=== PATIENT | male | born 1940 | race Caucasian/White ===

== ENCOUNTER → 2019-06-28 14:18 | Outpatient (BNVA) | payer MEDICARE, OTHER, SELFPAY | PROVIDERS: Family Provider Registered Nurse; PCP Registered Nurse; Visit Provider Urology | DX: N99.89 Other postprocedural complications and disorders of genitourinary system (principal); R97.20 Elevated prostate specific antigen [PSA] | CPT/HCPCS: 81001; 84153 ==

== ENCOUNTER 2019-07-06 10:37 | Outpatient (CLI) | payer MEDICARE, OTHER, SELFPAY ==
--- NOTE | 2019-07-06 11:02 | XRR_ITS ---
PROCEDURE INFORMATION: Exam: XR Chest, 1 View Exam date and time: 07/06/2019 11:04 AM Age: 78 years old Clinical indication: Shortness of breath TECHNIQUE: Imaging protocol: XR of the chest Views: 1 view. COMPARISON: CR Chest 1 [place] [id number] 05/24/2019 11:54 AM FINDINGS: Lungs: Hyperinflation, without acute airspace disease. Pleural space: No pleural effusion. Heart/Mediastinum: Epicardial fat accentuates the cardiac silhouette. Bones/joints: Mild scoliosis and degenerative change. When correlating with the previous study, no significant interval changes are present. XR/XR chest 1V [id number] IMPRESSION: Stable appearance of the chest, not significantly changed from 05/24/2019.
--- NOTE | 2019-07-06 11:04 | USCV_ITS ---
Pantera Henriquez Age: 78 Gender: M : 1940 Exam Date: 07/06/2019 11:15 Ordering Phys: Pantera Vilchis MD (Andy) ([email or web address]) Technologist: Kasey Romo [place] [facility] [place]: BILATERAL LEG PAIN AND SWELLING Risk Factors: Unknown Previous Vascular Surgery: None RIGHT LEFT BP: 112.0 / BP: 116.0/ 0 0 Waveform Velocity (cm/s) Velocity (cm/s) Waveform Triphasic 51.9 Iliac Prox 63.2 Triphasic Triphasic 44.9 Iliac Mid 51.5 Triphasic Biphasic 73.7 Iliac Distal 27.9 Triphasic Triphasic 29.1 [employer]INATOR 37.2 Triphasic Triphasic 55.2 SFA Prox 42.4 Triphasic Triphasic SFA Mid Triphasic 48.2 44.7 Triphasic 45.8 SFA Dist 46.4 Triphasic Triphasic 34.4 POP 41.8 Triphasic Biphasic 36.9 GAS CONTROLLER 32.7 Triphasic Monophasic 18.1 DPA 29.2 Biphasic 1.3 KADI 1.0 FINDINGS TBI RT .70 TBI LT .79 Normal resting ABIs and TBIs bilaterally Abnormal Doppler waveforms in the infrapopliteal vessels Normal Doppler flow velocities Mild diffuse plaques in the iliac and femoral arteries bilaterally CONCLUSIONS Normal resting ABIs and TBI's bilaterally, suggesting no significant arterial obstruction. Abnormal Doppler waveforms in the infrapopliteal vessels, may suggest focal nonobstructive disease Dr Yareli Benítez MD [facility] (Electronically Signed) Final Date: 07 July 2019 09:29 S
== END 2019-07-06 10:38 | disposition home or self-care (01) ==
PROVIDERS: Family Provider Registered Nurse; PCP Registered Nurse; Visit Provider Thoracic Surgery (Cardiothoracic Vascular Surgery)
DX: M79.605 Pain in left leg (principal); M79.604 Pain in right leg; M79.89 Other specified soft tissue disorders; R06.02 Shortness of breath; I27.20 Pulmonary hypertension, unspecified
CPT/HCPCS: 71045; 80048; 83880; 93925

== ENCOUNTER 2019-07-24 08:09 | Outpatient (CLI) | payer MEDICARE, OTHER, SELFPAY ==
--- NOTE | 2019-07-24 08:00 | USCV_ITS ---
Pantera Henriquez Age: 78 Gender: M : 1940 Exam Date: 07/24/2019 08:33 Ordering Phys: Pantera Vilchis MD (Andy) Technologist: Sheldon Rodriguez Exam Location: [facility] – [place] Indication: dyspnea BP: 139 / 76 HR: 87 Rhythm: Sinus Technical Quality: Suboptimal MEASUREMENTS (Male / Female) Normal Values 2D ECHO LV Diastolic Diameter PLAX 3.0 cm 4.2 - 5.9 / 3.9 - 5.3 cm LV Systolic Diameter PLAX 2.1 cm IVS Diastolic Thickness 1.0 cm 0.6 - 1.0 / 0.6 - 0.9 cm IVS Systolic Thickness 1.2 cm LVPW Diastolic Thickness 1.2 cm 0.6 - 1.0 / 0.6 - 0.9 cm LVPW Systolic Thickness 1.2 cm LVOT Diameter 2.0 cm LV Ejection Fraction 2D Teich 60.9 % LA Diameter 4.1 cm LA Width 3.5 cm LA Height 5.4 cm RA Width 7.2 cm RA Height 6.2 cm M-MODE LV Diastolic Diameter MM 4.3 cm 4.2 - 5.9 / 3.9 - 5.3 cm LV Systolic Diameter MM 2.2 cm LV Ejection Fraction MM Teich 80.5 % IVS Diastolic Thickness MM 0.9 cm 0.6 - 1.0 / 0.6 - 0.9 cm IVS Systolic Thickness MM 1.7 cm LVPW Diastolic Thickness MM 1.2 cm 0.6 - 1.0 / 0.6 - 0.9 cm LVPW Systolic Thickness MM 1.7 cm RV Diastolic Diameter MM 2.2 cm Aortic Annulus Diameter 3.8 cm LA Ao Ratio MM 1.1 MV E Point Septal Separation 0.9 cm DOPPLER AV Peak Velocity 98.0 cm/s LVOT Peak Velocity 77.0 cm/s AV Area Cont Eq vti 2.7 cm squared AV Area Cont Eq pk 2.4 cm squared MV Area PHT 5.0 cm squared Mitral E to A Ratio 3.9 MV E' Velocity 8.0 cm/s Mitral E to MV E' Ratio 19.5 Mitral E to LV E' Lateral Ratio 15.0 Mitral E to LV E' Septal Ratio 28.3 TR Peak Velocity 479.0 cm/s TR Peak Gradient 91.8 mmHg TV Peak E Velocity 119.0 cm/s Right Atrial Pressure 15.0 mmHg Pulmonary Artery Systolic Pressu 106.8 mmHg FINDINGS Left Ventricle Normal LV size ejection fraction of around 65%. Right Ventricle Markedly dilated right ventricle with a paradoxical motion of the septum Right Atrium Markedly dilated right atrium Left Atrium Normal left atrial size. Mitral Valve Thickened mitral valve. Aortic Valve Thickened aortic valve. Tricuspid Valve [id number] tricuspid valve regurgitation. Severe pulmonary hypertension with estimated pulmonary artery peak systolic pressure of 107 mmHg Pulmonic Valve Not visualized well Pericardium No pericardial effusion. Aorta Normal aortic annulus size. CONCLUSIONS 1. Features of severe pulmonary hypertension with markedly dilated right atrium right ventricle 2. Normal LV size ejection fraction 65% 3. Thickened aortic and mitral valves 4. Mild to moderate tricuspid regurgitation 5. No intracardiac masses 6. No pericardial effusion Compared to the study from 05/10/2017, the severe pulmonary hypertension and the right-sided chamber enlargement appeared to be new Dr Yareli Benítez MD [facility] (Electronically Signed) Final Date: 24 July 2019 20:40 S
== END 2019-07-24 08:10 | disposition home or self-care (01) ==
LOC: US 08:11
PROVIDERS: Family Provider Registered Nurse; PCP Registered Nurse; Visit Provider Thoracic Surgery (Cardiothoracic Vascular Surgery)
DX: R06.00 Dyspnea, unspecified (principal); I08.0 Rheumatic disorders of both mitral and aortic valves
CPT/HCPCS: 93306

== ENCOUNTER 2019-08-01 08:00 | Outpatient (CLI) | payer MEDICARE, OTHER, SELFPAY ==
--- NOTE | 2019-08-01 11:00 | USCV_ITS ---
Pantera Henriquez Age: 78 Gender: M : 1940 Exam Date: 08/01/2019 10:13 Ordering Phys: Pantera Vilchis MD (Andy) ([email or web address]) Technologist: Sheldon Rodriguez [place] [facility] [place]: HISTORY: Lower extremity edema. Lower extremity pain. Erythema. PROCEDURES: FINDINGS: All deep veins demonstrated compressibility without evidence of intraluminal thrombus or increased echogenicity. Spectral analysis of Doppler signals demonstrates normal response to compression maneuvers indicating patency without obstruction. Reflux determinations were made with the patient in the dependent position, the weight being on the contralateral leg. Vein measurements and reflux times are listed below were applicable. SIGNIGICANT DEEP AND SUPERFICIAL REFLUX IN LT LEG. DEEP REFLUX AT THE RT CFV, FV AND THE POP VEIN. REFLUX ALSON IN THE GSAPH AT THE LEVEL OF TAKE OFF PROX AND MID. CONCLUSIONS 1. No evidence of DVT in the above-mentioned identifiable veins. 2. Significant venous reflux of greater than 1000 ms were noted in the left deep veins involving the common femoral, femoral and popliteal veins. 3. Significant venous reflux of greater than 500 ms were noted in the superficial veins involving the greater saphenous vein distal to the saphenofemoral junction, proximal and mid greater saphenous vein segments. 4. The reflux times, depth from the surface and the venous dimensions are as mentioned above Dr Yareli Benítez MD [facility] (Electronically Signed) Final Date: 02 August 2019 09:15 S
== END 2019-08-01 09:00 | disposition home or self-care (01) ==
LOC: US 01-30 12:42
PROVIDERS: PCP Family Medicine; Visit Provider Thoracic Surgery (Cardiothoracic Vascular Surgery)
DX: M79.89 Other specified soft tissue disorders (principal); R60.0 Localized edema; L53.9 Erythematous condition, unspecified; M79.604 Pain in right leg; M79.605 Pain in left leg
CPT/HCPCS: 93970

== ENCOUNTER 2019-08-09 17:09 | Outpatient (CLI) | payer MEDICARE, OTHER, SELFPAY ==
--- NOTE | 2019-08-09 17:44 | CTR_ITS ---
PROCEDURE INFORMATION: Exam: CT Angiography Chest With Contrast Exam date and time: 08/09/2019 5:47 PM Age: 78 years old Clinical indication: Shortness of breath; Patient HX: SOB, enlarged lymph nodes TECHNIQUE: Imaging protocol: Computed tomographic angiography of the chest with intravenous contrast. 3D rendering: MIP and/or 3D reconstructed images were created by the technologist. Total DLP: 640.86 mGy-cm Radiation optimization: All CT scans at this facility use at least one of these dose optimization techniques: automated exposure control; mA and/or kV adjustment per patient size (includes targeted exams where dose is matched to clinical indication); or iterative reconstruction. Contrast material: OMNIPAQUE 350; Contrast volume: 95 ml; Contrast route: IV; COMPARISON: CTA Chest-[place]ulmonary [place] [id number] 05/09/2017 6:51 PM FINDINGS: Pulmonary arteries: There is no pulmonary embolus. Aorta: Unremarkable. No aortic aneurysm. No aortic dissection. Lungs: There is mild dependent atelectasis and unchanged mild pneumonitis. No lobar infiltrate. Pleural space: Unremarkable. No pneumothorax. No pleural effusion. Heart: The heart is enlarged. There is a small pericardial effusion. Mediastinum: A small hiatal hernia is present. Spleen: The spleen is normal in size. Lymph nodes: There is progressive mediastinal adenopathy. On image 165, there is a lymph node with a short axis measurement of 1.8 cm today that previously measured 0.9 cm. A right paratracheal lymph node image 126 measures 1.6 cm in short axis today compared to 0.7 cm previously. There is a subcarinal lymph node that measures 2.3 cm in short axis today compared to 1.7 cm previously. There is no pathologic adenopathy in the axilla or esau. No adenopathy is identified in the upper abdomen. Bones/joints: Moderate degenerative changes are noted in the spine. Soft tissues: Unremarkable. CT/CT angio chest [id number] IMPRESSION: 1. There is mild dependent atelectasis and unchanged mild pneumonitis. 2. There is no pulmonary embolus. 3. Increasing mediastinal adenopathy. Radiation Dose CTDIVOL = (mGy): DLP = 640.86 (mGy-cm)
[2019-08-09] MEDS: iohexol 350 mg/mL 100 mL Btl IV (17:48)
== END 2019-08-09 17:10 | disposition home or self-care (01) ==
LOC: RAD 17:14
PROVIDERS: Family Provider Registered Nurse; PCP Registered Nurse; Visit Provider Internal Medicine Cardiovascular Disease
DX: I27.81 Cor pulmonale (chronic) (principal); J98.11 Atelectasis; J18.9 Pneumonia, unspecified organism; R59.0 Localized enlarged lymph nodes
CPT/HCPCS: 71275

== ENCOUNTER 2019-08-18 08:20 | Outpatient (CLI) | payer MEDICARE, OTHER, SELFPAY ==
[2019-08-18 09:12] LABS: Anion Gap 16.8 (5-19); Blood Urea Nitrogen 20 mg/dL (8-23); Calcium 9.3 mg/dL (8.5-10.5); Carbon Dioxide 24 mmol/L (22-29); Chloride 101 mmol/L (98-107); Glucose 128 mg/dL (65-115); NT Pro B Type Natriuretic Pept 2555 pg/mL (0-450); Osmolality Calculated 284 mOsm/kg (285-295); Potassium 3.8 mmol/L (3.5-5.1); Sodium 138 mmol/L (136-145)
== END 2019-08-18 08:21 | disposition home or self-care (01) ==
LOC: LAB 08:26
PROVIDERS: Family Provider Registered Nurse; PCP Registered Nurse; Visit Provider Internal Medicine Cardiovascular Disease
DX: I50.33 Acute on chronic diastolic (congestive) heart failure (principal); I27.81 Cor pulmonale (chronic)
CPT/HCPCS: 80048; 83880

== ENCOUNTER 2019-08-18 08:46 | Emergency (ER) | payer MEDICARE, OTHER, SELFPAY ==
[2019-08-18 08:49] VITALS: BP 144/95; PULSE 86; RESP 18; TEMP 36.4; O2SAT 91; BMI 29.0
--- NOTE | 2019-08-18 09:04 | W.ED.SOB ---
HPI - SOB/Dyspnea General: Chief Complaint: Shortness of Breath/Dyspnea Stated Complaint: LEGS ARE SWOLLEN Time Seen by Provider: 08/18/19 09:04 History of Present Illness: HPI Narrative: 78 yo male resents emergency room complaining of leg discomfort and swelling. This been going on for some time he seen Dr. Vilchis he tells me the right side of his heart is not working well and he was told that has very high pressures. He also said he is scheduled for a heart cath by the engineering design supervisor. [facility] for the right side of his heart next week. He is beginning to have some skin breakdown and drainage from his legs due to the swelling. Denies fever sweats or chills denies any chest pain very mild orthopnea. He has known sleep apnea which she has not been being treated for. He does use oxygen at night but not during the day. MD elicited complaint: shortness of breath Pertinent past history: other (Pulmonary hypertension per patient's reported history) Onset (ago): month(s) Timing: constant Severity: moderate Exacerbating factors: lying flat and exertion Relieving factors: oxygen and rest Known history of: other (Sleep apnea, pulmonary hypertension) Associated symptoms: Reports orthopnea; Deny abdominal pain, chest pain, fever(s), nausea or vomiting Treatment prior to arrival: other (Ongoing evaluation with cardiothoracic surgery and cardiology) Review of Systems Const: Denies: fever, chills, body aches, change in appetite, fatigue or malaise ENMT: Denies: throat pain, ear pain, nasal discharge or nasal congestion Card: Reports: edema, shortness of breath on exertion and shortness of breath when lying down; Denies: chest pain Resp: Reports: shortness of breath; Denies: productive cough or non-productive cough GI: Denies: abdominal pain, nausea, vomiting, vomiting blood, coffee grounds in vomit, diarrhea, constipation, bloating, blood in stool or black tarry stool : Denies: flank pain, painful urination, urinary frequency or urinary urgency Skin/Breast: Denies: rash or itching PFSH ED PFSH: Social History Smoking and tobacco status: never smoked Second hand smoke exposure: Yes Alcohol intake: never Lives independently: Yes Household members: spouse Marital status: Current occupational status: retired History of recent travel: No Current gender identity: Male Physical Exam Const: COMMON NORMALS: no apparent distress GENERAL APPEARANCE: cooperative and comfortable ORIENTATION/CONSCIOUSNESS: Yes awake, Yes oriented to person, Yes oriented to place and Yes oriented to time HENMT: COMMON NORMALS: normocephalic, head/scalp atraumatic, hearing grossly normal bilaterally, external ears normal, EAC's normal, TM's normal bilaterally, nasal mucous membranes and turbinates normal, moist oral mucous membranes and oropharynx normal HEAD & SCALP: normocephalic and atraumatic NOSE: nasal mucous membranes and turbinates normal EXTERNAL EAR: Yes external ears normal EXTERNAL AUDITORY CANAL: EAC's normal TYMPANIC MEMBRANE: TM's normal bilaterally Eye: COMMON NORMALS: PERRL, EOMs intact bilaterally, conjunctivae normal and no scleral icterus CONJUNCTIVA: Yes conjunctivae normal PUPIL: Yes PERRL Neck/C-Spine: COMMON NORMALS: full ROM, no lymphadenopathy, supple and no JVD Lymph: LYMPHATIC: no lymphadenopathy noted and no lymphedema noted Resp: COMMON NORMALS: normal respiratory effort, no retractions, no use of accessory muscles and clear to auscultation bilaterally AUSCULTATION: clear to auscultation bilaterally Cardio: COMMON NORMALS: no JVD, regular rate, regular rhythm and no murmurs RATE: regular rate RHYTHM: regular rhythm GI: COMMON NORMALS: soft to palpation and no hepatosplenomegaly AUSCULTATION: Yes normoactive bowel sounds PALPATION: Yes soft, No tender, No guarding and Yes no hepatosplenomegaly Neuro: SENSORIUM/ORIENTATION: Yes oriented to person, Yes oriented to place and Yes oriented to time Course ED course: He does not have any signs of significant infection does have a little bit of early skin breakdown and 3+ edema of the lower extremities. He gets all due to his right-sided heart failure and pulmonary hypertension there is not a lot we can really do about this diuresis will really help compression stockings may be the most beneficial in the short-term. Will make an appointment for him with wound care they can look at getting some Unna boots he has upcoming right-sided heart cath which I think will be helpful for long-term management I discussed all this with him he expressed understanding. I do not believe he would benefit from antibiotics at this point. I did advise him to try to keep his feet elevated as much as possible. Vital Signs: Vital signs: Vital Signs Temperature 97.6 F 08/18/19 08:49 Pulse Rate 87 08/18/19 10:58 Respiratory Rate 16 08/18/19 10:58 Blood Pressure 128/56 08/18/19 10:58 Pulse Oximetry 95 08/18/19 10:58 MDM - SOB/Dyspnea Lab Data: Labs: Lab Results 08/18/19 08/18/19 Range/Units 09:34 09:34 WBC 7.6 (4.0-10.0) 10^3/ uL RBC 4.80 (4.1-5.3) 10^6/u L Hgb 14.2 (11.7-16.6) g/dL Hct 44.9 (42.0-52.0) % MCV 93.5 (80-94) fL MCH 29.6 (28.0-34.0) pg MCHC 31.6 (30.0-36.0) g/dL RDW 13.2 (12.1-15.1) % Plt Count 247 (130-400) 10^3/c mm MPV 11.1 H (7.4-10.4) fL Neut % (Auto) 76.7 % Lymph % (Auto) 14.7 % [place] % (Auto) 7.1 % Eos % (Auto) 0.5 % Baso % (Auto) 0.7 % Neut # (Auto) 5.9 (1.8-7.7) 10^3/u L Lymph # (Auto) 1.1 (0.8-4.8) 10^3/u L [place] # (Auto) 0.5 (0.2-0.9) 10^3/u L Eos # (Auto) 0.0 (0.0-0.8) 10^3/u L Baso # (Auto) 0.1 (0.0-0.1) 10^3/u L Nucleated RBC % (a uto) 0 % Nucleated RBCs # 0.0 /100WBC Sodium 135 L (136-145) mmol/L Potassium 3.5 (3.5-5.1) mmol/L Chloride 100 (98-107) mmol/L Carbon Dioxide 20 L (22-29) mmol/L Anion Gap 18.5 (5-19) BUN 19 (8-23) mg/dL Creatinine 1.2 (0.7-1.2) mg/dL Glucose 121 H (65-115) mg/dL Calcium 9.2 (8.5-10.5) mg/dL Total Bilirubin 0.9 (0.15-1.2) mg/dL AST 17 (0-40) U/L ALT 21 (0-41) U/L Alkaline Phosphata se 134 H (40-130) IU/L Total Protein 6.5 L (6.6-8.7) g/dL Albumin 3.2 L (3.5-5.2) g/dL Globulin 3.3 (1.3-4.6) g/dL Discharge Plan Discharge Patient Disposition: Home, Self-Care Clinical Impression: Leg swelling, Pulmonary hypertension, Cor pulmonale (chronic) Condition: Stable Prescriptions: No Action probenecid 500 mg tablet 500 mg PO DAILY RF: 0 metformin 1,000 mg tablet extended release 24hr 1,000 mg PO BID RF: 0 furosemide [Lasix] 40 mg tablet 40 mg PO DAILY RF: 0 potassium chloride [Klor-Con M20] 20 mEq tablet,ER particles/crystals 20 meq PO DAILY RF: 0 aspirin [Adult Aspirin Regimen] 81 mg tablet,delayed release (DR/EC) 81 mg PO DAILY RF: 0 simvastatin 20 mg Tablet 20 mg PO DAILY RF: 0 Discharge Orders: Discharge Order (Routine); Ordered 08/18/19 Ordered By: Benigno Sullivan Referrals: Ree Pathak [Primary Care Provider] - Discharge Diet: Usual diet Patient Instructions: Cor Pulmonale (ED) Activity Restrictions/Additional Instructions: You have an appointment with Dr. Vilchis at the wound clinic on August 21 at 8 AM Discharge Date/Time: 08/18/19 10:59 Coding Level of Care Code ED Spearer for Terenceg Fwd Exam Comprehensive
--- NOTE | 2019-08-18 09:19 | XR_ITS ---
WS: [id number] XR chest 1V portable [id number] REASON FOR EXAM: dyspnea/cough FINDINGS: Cardiomegaly is again noted similar to previous exam July 06, 2019. The lung reid are well-aerated. There is no pneumonia, pleural effusion, pulmonary edema, or mass e ffect. There are scattered calcified granulomas . The hilum and apices are normal. There is degenerated ankylosing changes in the thoracic spine. XR/XR chest 1V portable [id number] IMPRESSION: Cardiomegaly.
--- NOTE | 2019-08-18 09:19 | ECG_ITS ---
Measurements Intervals Coker Rate: 81 P: 49 MO: 219 QRS: 172 QRSD: 104 T: 6 QT: 402 QTc: 468 SINUS RHYTHM WITH FIRST DEGREE AV BLOCK INCOMPLETE RIGHT BUNDLE BRANCH BLOCK RIGHT VENTRICULAR HYPERTROPHY AND ST-T CHANGE ANTEROSEPTAL MYOCARDIAL INFARCTION , OF INDETERMINATE AGE Compared to ECG 07/23/2018 10:11:41 Right ventricular hypertrophy now present ST (T wave) deviation now present Atrial abnormality now present Sinus arrhythmia no longer present Myocardial infarct finding still present Electronically Signed On 08-18-2019 15:23:45 RN DIALYSIS by Nella Thomas M.D. [email or web address]
[2019-08-18 09:39] LABS: Basophils # 0.1 10^3/uL (0.0-0.1); Basophils % 0.7 %; Eosinophils % 0.5 %; Hematocrit 44.9 % (42.0-52.0); Hemoglobin 14.2 g/dL (11.7-16.6); Lymphocytes # 1.1 10^3/uL (0.8-4.8); Lymphocytes % 14.7 %; Mean Corpuscular HGB Conc 31.6 g/dL (30.0-36.0); Mean Corpuscular Hemoglobin 29.6 pg (28.0-34.0); Mean Corpuscular Volume 93.5 fL (80-94); Mean Platelet Volume 11.1 fL (7.4-10.4); Monocytes # 0.5 10^3/uL (0.2-0.9); Monocytes % 7.1 %; Neutrophils # 5.9 10^3/uL (1.8-7.7); Neutrophils % 76.7 %; Nucleated Red Blood Cells % 0 %; Platelet Count 247 10^3/cmm (130-400); Red Cell Distribution Width 13.2 % (12.1-15.1); White Blood Count 7.6 10^3/uL (4.0-10.0)
[2019-08-18 09:56] LABS: Alanine Aminotransferase 21 U/L (0-41); Albumin Level 3.2 g/dL (3.5-5.2); Alkaline Phosphatase 134 IU/L (40-130); Anion Gap 18.5 (5-19); Aspartate Amino Transferase 17 U/L (0-40); Blood Urea Nitrogen 19 mg/dL (8-23); Calcium 9.2 mg/dL (8.5-10.5); Carbon Dioxide 20 mmol/L (22-29); Chloride 100 mmol/L (98-107); Globulin 3.3 g/dL (1.3-4.6); Glucose 121 mg/dL (65-115); Potassium 3.5 mmol/L (3.5-5.1); Sodium 135 mmol/L (136-145); Total Bilirubin 0.9 mg/dL (0.15-1.2); Total Protein 6.5 g/dL (6.6-8.7)
[2019-08-18 10:58] VITALS: BP 128/56; PULSE 87; RESP 16; O2SAT 95
== END 2019-08-18 10:59 | disposition home or self-care (01) ==
PROVIDERS: Emergency Provider Family Medicine; Family Provider Registered Nurse; PCP Registered Nurse
DX: I27.81 Cor pulmonale (chronic) (principal); I27.20 Pulmonary hypertension, unspecified; I50.810 Right heart failure, unspecified; I51.7 Cardiomegaly; I44.0 Atrioventricular block, first degree; I45.10 Unspecified right bundle-branch block; I50.33 Acute on chronic diastolic (congestive) heart failure
CPT/HCPCS: 12345; 36415; 71045; 80048; 80053; 83880; 85025; 93005; 99283

== ENCOUNTER 2019-08-21 06:22 | Day surgery (SDC) | payer MEDICARE, OTHER, SELFPAY ==
[2019-08-21] VITALS (39 sets, daily range): BP systolic 92–119; BP diastolic 66–83; PULSE 75–88; RESP 6–26; TEMP 37; O2SAT 87–95; BMI 29.0
--- NOTE | 2019-08-21 06:35 | SUR.PREOP ---
NO ORDERS FOUND IN THE PATIENTS CHART. DR MAYS CALLED TO CLARIFY AND ORDERS RECEIVED FOR A RHC ONLY.
--- NOTE | 2019-08-21 06:40 | XACV_ITS ---
Ht: 180 cm Wt: 94 kg BSA: 2.19 m2 Gender: Male : 1940 Any Known Allergies: No known allergies Exam Priority: Routine Procedure(s): Procedure Description: Diagnostic procedure Procedure Description: Right Heart Catheterization Procedure Description: O2 saturation Procedure Description: Pressure Wire Diagnostic Cath Status: Elective Diagnostic Findings The right heart catheterization was attempted through the basilic vein at first. Because of some technical difficulties, I could not advance the catheter into the pulmonary artery. For this reason, it was decided to perform the procedure through the right femoral vein. The right atrial and right ventricular pressures were recorded using the double-lumen balloontipped catheter. For the pulmonary artery catheterization, a multipurpose catheter was used. The right atrial pressure was measured to be 18 mmHg. The RV pressure was 94/6 and the pulmonary artery pressure was 90/39 with a mean of 58. Oxygen saturations were performed from the right atrium, right ventricle and the pulmonary artery. They wear 52.2, 51.1 and 50.6 respectively. The arterial O2 was 94.0. Cardiac output by Nick's was 2.95 L/min. Conclusions This is a 78-year-old white male, presented with progressive shortness of breath. His echocardiogram revealed features of severe pulmonary hypertension. He also was found to have dilated right atrium and right ventricle. For further evaluation of his hemodynamics, a right heart catheterization was requested. The right heart catheterization revealed a severe pulmonary hypertension with a mean arterial pressure of 58 mmHg. Cardiac output was calculated to be 2.95, by Nick's. Recommendations Continue current medical management and risk factor modification. Diagnostic RX Recommendation: medical therapy and/or counseling Pressures Phase:Rest RV : 27 mmHg / 19 mmHg / @ 1:50:00 AM 97 mmHg / 4 mmHg / @ 1:50:00 AM 94 mmHg / 6 mmHg / @ 2:09:00 AM PA : 90 mmHg / 39 mmHg ( 58 mmHg ) @ 2:14:00 AM RA : a wave = v wave = mean = 18 mmHg @ 2:16:00 AM a wave = v wave = mean = 19 mmHg @ 2:16:00 AM O2 Content Phase:Rest PA : O2 Content O2: 50.6 % @ 2:16:00 AM Saturations Phase:Rest AO : 94 % @ 1:50:00 AM RA : 52 % @ 2:14:00 AM RV : 51 % @ 2:16:00 AM PA : 51 % @ 2:16:00 AM Cardiac Output Phase:Rest Nick : 3 l/min @ 2:14:00 AM Nick Cardiac Index: 1 L/min/m2 @ 2:14:00 AM Clinical Evaluation EBL: 5mL-10mL Procedural Details Procedure Consent Obtained. Pre-Procedure Time Out. Identified patient by full name and date of as verbalized by the patient/guarantor. Does the consent match the physician's order: Yes. Accurate & Complete Informed Consent: Yes. Inpatient/Outpatient History & Physical on Chart: Yes. If H&P is completed, is and addenduem needed: N/A; If yes, is the addendum complete: N/A. Visualize and Verify Site with Patient/Guarantor: N/A. Relevant Radiology Images available: Yes. Pre-op teaching completed and patient verbalized understanding. The risks, benefits, and alternatives of sedation and/or procedure were discussed by physician. The patient agrees to continue. Procedure started. Correct patient, site and procedure confirmed by cath team. PERRLA. Strong, equal hand stone finisher bilaterally. Lungs clear x 5 lobes. IV Site on Arrival: 20 gauge in the left anticubital. IV Fluids: 0.9% NaCl at KVO. 0 mL infused prior to labview programmer. Pre Procedural Pulses: bilateral dorsalis pedis was Doppled. Pre Procedural Pulses: bilateral posterior tibial was Doppled. Pre Procedural Pulses: bilateral radial was 2+. right brachial was prepped with chloroprep then draped in the usual sterile fashion. Physician notified. Pt on roomair for RHC. Baseline sample Acquired. HR: 95 BPM. Equipment: 6F - Radial. Heparinized Saline (2 units/mL), 1000 mL bag. Cardiac Cath Pack. ACKakKstati Manifold Kit Model BT 2000. Physician arrived. Physician scrubbed in. Immediate Pre-Procedure Time Out. Correct Patient: Yes; Correct Procedure: Yes; Correct Site: Yes; Correct Patient Position: Yes; Correct Supplies: Yes; Dried Flammable Prep: Yes; Blood Products Available: No;. Lidocaine 1% infiltrated to the right brachial. [place]-Umesh MON catheter inserted. wire inserted through swan catheter. swan removed. A 5 luxembourger MPA1 catheter in over wire. Catheter out. A 5 luxembourger MPA1 catheter in over wire. Catheter out. [place]-Umesh MON catheter inserted. [place]-Umesh out. right groin was prepped with chloroprep then draped in the usual sterile fashion. Lidocaine 1% infiltrated to the right groin. Venous access obtained with a micropuncture set. [place]-Umesh MON catheter inserted. [place]-Umesh out. A 5 luxembourger MPA1 catheter in over wire. Oximetry samples were obtained. Normal venous range: 60-85%. Normal arterial range: 95-100%. Pressure measurements obtained. Catheter out. A Manual Compression was successful obtaining hemostatsis at the Right Brachial Vein insertion site. A Suture was successful obtaining hemostatsis at the Right Femoral vein insertion site. Sheath(s) sutured into position with 2-0 silk and sterile 4x4's and Op-site applied over the site. No oozing or signs and symptoms of hematoma noted. Arterial sheath flushed and connected to tranducer and pressure bag with heparinized saline. Post Procedure: Pulses reassessed and unchanged. PERRLA. Strong, equal hand stone finisher bilaterally. No VTE prophylaxis required. Medication's Wasted: Other = versed 1 mg. Medication's Wasted: Other = fentanyl 100 mcg. Medication's Wasted: Lidocaine 1% = 8 mL. Medication's Wasted: Heparin = 1000 units. Total IV fluids: 100 mL. Fluoro: 249:00. Post-op diagnosis: severe pulmonary hypertension. Complications: none. Estimated blood loss: 5mL-10mL. Procedure completed. Patient transferred by bed to 1st floor. Vital chart was stopped. Site: Right Brachial Vein Sheath Size: 6 Fr Hemostasis Method: Manual Compression Hemostasis Success: Successful Site: Right Femoral vein Sheath Size: 6 Fr Hemostasis Method: Suture Hemostasis Success: Successful Procedure Medications Start: 7:29 AM Stop: 7:29 AM Medication: Versed Amount: 0.5 mg Route: I.V. Start: 7:29 AM Stop: 7:29 AM Medication: Fentanyl Amount: 12.5 mcg Route: I.V. Start: 8:03 AM Stop: 8:03 AM Medication: Versed Amount: 0.5 mg Route: I.V. I, the attending physician, have reviewed and verified all procedure medications. Yes, all medications given per verbal order History/Risk Factors Hypertension: Yes Dyslipidemia: Yes Diabetic Therapy: Oral Peripheral Arterial Disease (PAD): No Myocardial Infarction (WI): No Obesity: No Renal Disease: No Tobacco Use: Never Prior Interventions PCI: No CABG: No Valve Surgery: No Report Signatures Finalized by:Dr Yareli Benítez MD [facility] on 08/21/2019 1:05:32 PM
[2019-08-21 06:54] LABS: Basophils % 0.6 %; Eosinophils % 0.6 %; Hematocrit 46.8 % (42.0-52.0); Hemoglobin 15.3 g/dL (11.7-16.6); Lymphocytes # 1.1 10^3/uL (0.8-4.8); Lymphocytes % 15.8 %; Mean Corpuscular HGB Conc 32.7 g/dL (30.0-36.0); Mean Corpuscular Hemoglobin 29.5 pg (28.0-34.0); Mean Corpuscular Volume 90.3 fL (80-94); Mean Platelet Volume 11.3 fL (7.4-10.4); Monocytes # 0.6 10^3/uL (0.2-0.9); Monocytes % 7.7 %; Neutrophils # 5.4 10^3/uL (1.8-7.7); Neutrophils % 74.9 %; Nucleated Red Blood Cells % 0 %; Platelet Count 252 10^3/cmm (130-400); Red Blood Count 5.18 10^6/uL (4.1-5.3); Red Cell Distribution Width 13.2 % (12.1-15.1); White Blood Count 7.2 10^3/uL (4.0-10.0)
[2019-08-21 07:05] LABS: Anion Gap 17.5 (5-19); Blood Urea Nitrogen 19 mg/dL (8-23); Calcium 9.3 mg/dL (8.5-10.5); Carbon Dioxide 23 mmol/L (22-29); Chloride 101 mmol/L (98-107); Glucose 135 mg/dL (65-115); Osmolality Calculated 285 mOsm/kg (285-295); Potassium 3.5 mmol/L (3.5-5.1); Sodium 138 mmol/L (136-145)
--- NOTE | 2019-08-21 07:14 | SUR.PREOP ---
BILATERAL LOWER EXTREMITIES FROM [place] WITH WEEPING, CELLULITES LOOKING AREAS. PATIENT STATES THAT THE AREAS STARTING COMING UP ABOUT 2 MONTHS AGO WHEN HIS ANKLES AND FEET STARTING SWELLING. HE ALSO STATED THAT DR WHEATLEY WAS AWARE.
[2019-08-21] MEDS: metformin 500 mg Tablet 1000 MG PO (10:16)
== END 2019-08-21 15:18 | disposition home or self-care (01) ==
LOC: CCL 06:26 → CSU 14:42 → OPCSU 08-22 07:33
PROVIDERS: Family Provider Registered Nurse; PCP Registered Nurse; Visit Provider Internal Medicine Cardiovascular Disease
DX: I27.20 Pulmonary hypertension, unspecified (principal); Z79.82 Long term (current) use of aspirin; E11.65 Type 2 diabetes mellitus with hyperglycemia; Z79.84 Long term (current) use of oral hypoglycemic drugs; I11.0 Hypertensive heart disease with heart failure; I50.30 Unspecified diastolic (congestive) heart failure; Z82.49 Family history of ischemic heart disease and other diseases of the circulatory system; Z83.3 Family history of diabetes mellitus; I27.81 Cor pulmonale (chronic); M79.89 Other specified soft tissue disorders; E78.2 Mixed hyperlipidemia
CPT/HCPCS: 36415; 80048; 85025; 93451; C1751; C1769; C1887; C1894; J1644; J2001; J2250; J3010; J7030; Q9967

== ENCOUNTER 2019-09-06 09:35 | Outpatient (CLI) | payer MEDICARE, OTHER, SELFPAY ==
--- NOTE | 2019-09-06 09:58 | XR_ITS ---
WS: [id number] Chest 2 views, 09/06/2019 Clinical Data: PULMONARY HYPERTENSION/ NM LUNG SCAN COMPARISON Comparison: Portable chest, 08/18/2019. Findings: No nodules, masses or effusions are seen. The heart is enlarged. The pulmonary vascularity is not increased. No pneumonia or pneumothorax is seen. There is a dextroscoliosis of the thoracic sp ine. XR/XR chest 2V* [id number] Impression: Cardiomegaly
--- NOTE | 2019-09-06 12:00 | NM_ITS ---
WS: [id number] Ventilation/perfusion lung scan, 09/06/2019 Clinical Data: pulmonary hypertension Comparison: PA and lateral chest, 09/06/2019 Findings: Ventilation lung scan: 31.2 mCi of technetium 99m DTPA were utilized to visualize the lungs. The lung s filled normally. There are no ventilation defects. No subsegmental defects could be seen. Perfusion lung scan: After the intravenous injection of 5.5 mCi of technetium 99m MAA multiple sequen tial imaging of the lungs were obtained. The distribution of the radionuclide was normal. There were no perfusion filling defects. No subsegmental defects could be seen. NM/NM pul vent and perfus* [id number] Impression: Negative ventilation lung scan. Impression: Negative perfusion lung scan. Low probability of pulmonary embolic disease.
== END 2019-09-06 09:36 | disposition home or self-care (01) ==
LOC: NM 09:36
PROVIDERS: Family Provider Registered Nurse; PCP Registered Nurse; Visit Provider Internal Medicine Critical Care Medicine
DX: I27.20 Pulmonary hypertension, unspecified (principal); R06.02 Shortness of breath; I51.7 Cardiomegaly
CPT/HCPCS: 29581; 71046; 78014; 99212; A9540; A9567

== ENCOUNTER 2019-09-12 13:08 | Outpatient (RCR) | payer MEDICARE, OTHER, SELFPAY ==
--- NOTE | 2019-08-29 10:48 | USCV_ITS ---
Pantera Henriquez Age: 78 Gender: M : 1940 Exam Date: 08/29/2019 10:53 Ordering Phys: Pantera Vilchis MD (Andy) ([email or web address]) Technologist: [place] [facility] [place]: non healing ulcer RIGHT LEFT Brachial 108.00 mmHg Brachial 113.00 mmHg Pressure (mmHg) Waveform Pressure (mmHg) Waveform 119.00 Above Knee 122.00 137.00 Below Knee 131.00 147.00 MATERIAL ANALYST 153.00 123.00 DPA 122.00 1.09 Ankle/Brachial Index 1.35 66.00 Pre-Exercise Toe Pressure 79.00 Pre-Exercise Toe/Brachial Index 0.70 0.58 FINDINGS Normal resting KADI on the right side of 1.09 with diminished resting TBI of 0.58 Supernormal resting KADI of the left side with a normal resting TBI CONCLUSIONS Features of mild to moderate peripheral artery disease involving the distal vessels on the right side. Features of minimal arterial disease on the left side Dr Yareli Benítez MD FAC (Electronically Signed) Final Date: 29 August 2019 19:36 S
== END 2019-09-12 23:59 | disposition home or self-care (01) ==
LOC: WOUND 13:08
PROVIDERS: Family Provider Registered Nurse; PCP Registered Nurse; Visit Provider Thoracic Surgery (Cardiothoracic Vascular Surgery)
DX: E11.622 Type 2 diabetes mellitus with other skin ulcer (principal); L97.812 Non-pressure chronic ulcer of other part of right lower leg with fat layer exposed
CPT/HCPCS: 11042; 11045; 29581; 93923; 99203; 99212; A6545; G0463

== ENCOUNTER 2019-11-13 09:02 | Outpatient (CLI) | payer MEDICARE, OTHER, SELFPAY ==
--- NOTE | 2019-11-13 13:54 | PFTS_ITS ---
Date of Study:11/13/19 Date of Dictation: MECHANICS: Forced vital capacity (FVC) is normal. Forced expiratory volume in one second (FEV1) is normal. FEV1/FVC is normal. FLOW VOLUME LOOP: Normal. LUNG VOLUMES: Not measured DIFFUSING CAPACITY FOR CARBON MONOXIDE: Severely reduced. INTERPRETATION: Spirometry is normal. Gas exchange (DLCO) is severely diminished. This could be consistent with pulmonary hypertension. MTDD
== END 2019-11-13 09:03 | disposition home or self-care (01) ==
LOC: RT 09:06
PROVIDERS: PCP Family Medicine; Visit Provider Internal Medicine Critical Care Medicine
DX: I27.20 Pulmonary hypertension, unspecified (principal)
CPT/HCPCS: 94010; 94729

== ENCOUNTER 2020-10-03 02:27 | Emergency (ER) | payer MEDICARE, OTHER, SELFPAY ==
[2020-10-03 02:38] VITALS: BP 110/77; PULSE 100; RESP 18; TEMP 36.2; O2SAT 97; BMI 31.6
--- NOTE | 2020-10-03 02:40 | USCV_ITS ---
Pantera Henriquez Age: 79 Gender: M : 1940 Exam Date: 10/03/2020 03:21 Ordering Phys: Kenya Villafana MD Technologist: Sheldon Rodriguez Exam Location: [facility] – [place] Indication: BILAT LEG EDEMA AND SWELLING WEEPING LEGS HISTORY: Edema. Swelling. PROCEDURES: The venous duplex Doppler examination of both lower extremities was performed in the standard fashion. The following venous structures were evaluated: common femoral vein, profunda vein, proximal portion of the greater saphenous vein, superficial femoral vein, and the popliteal vein. In addition, the posterior tibial and peroneal trunk were evaluated. Bilaterally, the common femoral, superficial femoral, profunda femoral, popliteal, posterior tibial, greater saphenous veins, and the peroneal trunk were identified and interrogated in the standard fashion. These veins were found to be easily compressible with spontaneous blood flow. No evidence of insufficiency or thrombus noted. Bilaterally, the common femoral, superficial femoral, profunda femoral, popliteal, posterior tibial, greater saphenous veins, and the peroneal trunk were identified and interrogated in the standard fashion. These veins were found to be easily compressible with spontaneous blood flow. No evidence of insufficiency or thrombus noted. FINDINGS: Normal 2-D Doppler and augmentation and compressibility throughout the lower extremity venous structures. Additional imaging through the proximal calf veins also reveals no thrombus. Limited evaluation of the greater saphenous vein is patent with no thrombus.. Multiple echolucent areas in the subcutaneous tissue CONCLUSIONS No evidence of DVT in the above-mentioned identifiable veins. Features of fluid retention/edema in the right lower extremity Dr Yareli Benítez MD [facility] (Electronically Signed) Final Date: 03 October 2020 23:45 S
--- NOTE | 2020-10-03 02:40 | USCV_ITS ---
Pantera Henriquez Age: 79 Gender: M : 1940 Exam Date: 10/03/2020 03:30 Ordering Phys: Kenya Villafana MD Technologist: Sheldon Rodriguez Exam Location: [facility] [place] Indication: COOL LEGS RIGHT LEFT Brachial 105.00 mmHg Brachial 105.00 mmHg Pressure (mmHg) Waveform Pressure (mmHg) Waveform 115.00 SPOILAGE WORKER 115.00 120.00 DPA 115.00 1.00 Ankle/Brachial Index 1.00 FINDINGS Normal resting ABIs bilaterally Biphasic arterial Doppler waveforms CONCLUSIONS No significant arterial obstruction, based on the above findings Dr Yareli Benítez MD [facility] (Electronically Signed) Final Date: 03 October 2020 23:46 S
--- NOTE | 2020-10-03 02:42 | ED_ITS ---
HPI - General Adult General: Chief complaint: Extremity Problem,Nontraumatic Stated complaint: severe pain both legs Time Seen by Provider: 10/03/20 02:29 Source: patient Mode of arrival: ambulatory Limitations: no limitations History of Present Illness: HPI narrative: 79-year-old male who states he had increased swelling in his legs over the last 2 to 3 weeks. He states he has had chronic swelling of the legs and had a see wound care years ago and had them wrapped. He states that tonight roughly 4 to 5 hours ago he is having pains in his legs that are sharp in nature. States pain is currently a 6 out of 10. He does have some weeping to his legs. He is currently on Lasix. He denies any chest pain or shortness of breath. Denies any difficulty walking. Associated symptoms: Deny chest pain, dyspnea, headache(s), nausea, rash or vomiting Review of Systems Const: Denies: fever(s), chills, body aches or change in appetite Eyes: Denies: blurry vision or eye discomfort ENMT: Denies: throat pain or dental pain Card: Denies: chest pain Resp: Denies: dyspnea GI: Denies: abdominal pain, nausea, vomiting or diarrhea : Denies: dysuria Musc: Reports: extremity pain and extremity swelling; Denies: neck pain or back pain Skin/Breast: Denies: rash Neuro: Denies: headache(s) Psych: Denies: depression [place]/Lymph: Denies: easy bruising All/Imm: Denies: urticaria PFSH ED PFSH: Medical History (Updated 10/03/20 @ 03:50 by Kenya Villafana MD) Acute cystitis Acute on chronic diastolic (congestive) heart failure Cor pulmonale (chronic) Diabetes mellitus Diastolic heart failure due to valvular disease Elevated PSA Gouty arthritis of left foot Hyperlipemia Hypertension Leg swelling Pulmonary hypertension Varicose vein of leg Family History Father , 72 Hypertension Chronic kidney disease (CKD) Mother , 81 CAD (coronary artery disease) Hypertension Diabetes Social History Smoking and tobacco status: never smoked Second hand smoke exposure: Yes Alcohol intake: never Lives independently: Yes Household members: spouse Marital status: Current occupational status: retired History of recent travel: No Current gender identity: Male Physical Exam Const: COMMON NORMALS: no acute distress, patient oriented x3 and healthy appearing HENMT: COMMON NORMALS: normocephalic and atraumatic HEAD & SCALP: normocephalic and atraumatic Eye: COMMON NORMALS: Equal, round and reactive pupils present and EOMs intact bilaterally PUPIL: Yes Equal, round and reactive pupils present Neck/C-Spine: COMMON NORMALS: full ROM and supple Chest: COMMONS NORMALS: normal inspection of the chest and normal palpation of entire chest wall Resp: COMMON NORMALS: normal respiratory effort, No retractions, No use of accessory muscles and clear to auscultation bilaterally AUSCULTATION: clear to auscultation bilaterally Cardio: COMMON NORMALS: regular rate, regular rhythm and No murmurs present (Cardio) RATE: regular rate RHYTHM: regular rhythm GI: COMMON NORMALS: Normal to inspection, nondistended, normoactive bowel sounds present, Soft to palpation, non-tender and no masses PALPATION: Yes Soft to palpation Extremity: NARRATIVE EXTREMITY EXAM: Swelling to bilateral lower extremities dopplerable pulses to bilateral feet 2+ edema with weeping and erythema Neuro: COMMON NORMALS: patient oriented x3, moves all extremities and no focal motor deficits Psych: COMMON NORMALS: mental status grossly normal, Normal thought process present and cooperative THOUGHT PROCESS: Normal thought process present Skin: COMMON NORMALS: no rashes or lesions noted and no wounds GENERAL SKIN EXAM: no rashes or lesions noted Course Vital Signs: Vital signs: Vital Signs Temperature 97.1 F L 10/03/20 02:38 Pulse Rate 100 10/03/20 02:38 Respiratory Rate 18 10/03/20 02:38 Blood Pressure 110/77 10/03/20 02:38 Pulse Oximetry 97 10/03/20 02:38 MDM - General Adult MDM Narrative: Medical decision making narrative: Pantera presents with lower extremity edema and pain. His edema is chronic in nature. He is on Lasix and is to continue his Lasix. Patient given IV Lasix here. We will wrap his legs and have him follow-up with wound care. Ultrasound showed no DVT and no arterial blockage. Patient is stable for discharge and is to return if worsening. He understands agrees to plan. Tray showed no signs of fluid overload. Lab Data: Labs: Lab Results 10/03/20 10/03/20 Range/Units 02:45 02:45 WBC 7.7 (4.0-10.0) 10^3/ uL RBC 5.38 H (4.1-5.3) 10^6/u L Hgb 15.5 (11.7-16.6) g/dL Hct 47.8 (42.0-52.0) % MCV 88.8 (80-94) fL MCH 28.8 (28.0-34.0) pg MCHC 32.4 (30.0-36.0) g/dL RDW 14.7 (12.1-15.1) % Plt Count 231 (130-400) 10^3/c mm MPV 11.5 H (7.4-10.4) fL Neut % (Auto) 76.7 % Lymph % (Auto) 11.6 % [place] % (Auto) 9.6 % Eos % (Auto) 0.8 % Baso % (Auto) 0.8 % Neut # (Auto) 5.91 (1.8-7.7) 10^3/u L Lymph # (Auto) 0.9 (0.8-4.8) 10^3/u L [place] # (Auto) 0.7 (0.2-0.9) 10^3/u L Eos # (Auto) 0.1 (0.0-0.8) 10^3/u L Baso # (Auto) 0.1 (0.0-0.1) 10^3/u L Nucleated RBC % (a uto) 0 % Nucleated RBCs # 0.0 /100WBC Sodium 131 L (136-145) mmol/L Potassium 4.1 (3.5-5.1) mmol/L Chloride 99 (98-107) mmol/L Carbon Dioxide 20 L (22-29) mmol/L Anion Gap 16.1 (5-19) BUN 46 H (8-23) mg/dL Creatinine 2.1 H (0.7-1.2) mg/dL GFR Calculation Not Reportable Glucose 153 H (65-115) mg/dL Calculated Osmolal ity 287 (285-295) mOsm/k g Calcium 8.1 L (8.5-10.5) mg/dL Total Bilirubin 1.6 H (0.15-1.2) mg/dL AST 22 (0-40) U/L ALT 13 (0-41) U/L Alkaline Phosphata se 194 H (40-130) IU/L NT-Pro-B Natriuret Pep 6595 H (0-450) pg/mL Total Protein 6.4 L (6.6-8.7) g/dL Albumin 3.4 L (3.5-5.2) g/dL Globulin 3.0 (1.3-4.6) g/dL Imaging Data^: US Vascular: Attestation: I personally reviewed and interpreted this imaging study as follows: My impression: No DVT noted and arterial ultrasound showed no ischemia Discharge Plan Discharge Patient Disposition: Home Clinical Impression: Leg swelling, Leg pain Condition: Stable Prescriptions: No Action sildenafil (pulm.hypertension) 20 mg tablet 20 mg PO TID RF: 0 probenecid 500 mg tablet 500 mg PO DAILY RF: 0 metformin 1,000 mg tablet extended release 24hr 1,000 mg PO BID RF: 0 aspirin [Adult Aspirin Regimen] 81 mg tablet,delayed release (DR/EC) 81 mg PO DAILY RF: 0 macitentan 10 mg tablet 10 mg PO DAILY Qty: 30 RF: 3 simvastatin 20 mg Tablet 20 mg PO DAILY RF: 0 Discharge Orders: Discharge ED (Routine); Ordered 10/03/20 Ordered By: Kenya Villafana Referrals: Kimberly Ann DO [Primary Care Provider] - 1-3 days Discharge Diet: Advance as tolerated Discharge Activity: Resume usual activity Patient Instructions: Leg Edema (ED) Coding Level of Care Code ED Hyperion Administrator for Chg Fwd Exam Comprehensive
[2020-10-03] MEDS: ondansetron 2 mg/ML SDV 2 mL 4 MG IVP (02:49)
[2020-10-03] MEDS: FUROsemide 10 mg/mL SDV 10mL 60 MG IVP (02:51)
[2020-10-03] MEDS: morphine 4 mg/mL SDV 1 mL IVP (02:51)
[2020-10-03 03:03] LABS: Basophils # 0.1 10^3/uL (0.0-0.1); Basophils % 0.8 %; Eosinophils # 0.1 10^3/uL (0.0-0.8); Eosinophils % 0.8 %; Hematocrit 47.8 % (42.0-52.0); Hemoglobin 15.5 g/dL (11.7-16.6); Lymphocytes # 0.9 10^3/uL (0.8-4.8); Lymphocytes % 11.6 %; Mean Corpuscular HGB Conc 32.4 g/dL (30.0-36.0); Mean Corpuscular Hemoglobin 28.8 pg (28.0-34.0); Mean Corpuscular Volume 88.8 fL (80-94); Mean Platelet Volume 11.5 fL (7.4-10.4); Monocytes # 0.7 10^3/uL (0.2-0.9); Monocytes % 9.6 %; Neutrophils # 5.91 10^3/uL (1.8-7.7); Neutrophils % 76.7 %; Nucleated Red Blood Cells % 0 %; Platelet Count 231 10^3/cmm (130-400); Red Blood Count 5.38 10^6/uL (4.1-5.3); Red Cell Distribution Width 14.7 % (12.1-15.1); White Blood Count 7.7 10^3/uL (4.0-10.0)
[2020-10-03 03:19] LABS: Alanine Aminotransferase 13 U/L (0-41); Albumin Level 3.4 g/dL (3.5-5.2); Alkaline Phosphatase 194 IU/L (40-130); Anion Gap 16.1 (5-19); Aspartate Amino Transferase 22 U/L (0-40); Blood Urea Nitrogen 46 mg/dL (8-23); Calcium 8.1 mg/dL (8.5-10.5); Carbon Dioxide 20 mmol/L (22-29); Chloride 99 mmol/L (98-107); Glucose 153 mg/dL (65-115); NT Pro B Type Natriuretic Pept 6595 pg/mL (0-450); Osmolality Calculated 287 mOsm/kg (285-295); Potassium 4.1 mmol/L (3.5-5.1); Sodium 131 mmol/L (136-145); Total Bilirubin 1.6 mg/dL (0.15-1.2); Total Protein 6.4 g/dL (6.6-8.7)
--- NOTE | 2020-10-03 03:42 | XR_ITS ---
WS: [id number] Portable AP semiupright chest, 10/03/2020 Clinical Data: chf Comparison: PA and lateral chest, 09/06/2019. Findings: No nodules, masses or effusions are seen. The heart is enlarged. The pulmonary vascularity is not increased. No pneumonia or pneumothorax is seen. The aortic arch and descending aorta show tor tuosity. XR/XR chest 1V portable [id number] Impression: Atherosclerosis and cardiomegaly.
[2020-10-03 04:19] VITALS: BP 97/76; PULSE 94; RESP 19; O2SAT 95
--- NOTE | 2020-10-03 09:58 | DCPLANNER ---
pe manager had message to schedule a follow up appointment for patient with Wound Care for leg edema. pe manager called the Wound Care clinic, spoke with Rody, gave clinic patients information. A follow up appointment was scheduled for Wednesday, October 07, 2020 at 8:30 with Perlita. pe manager called patient and gave patient the appointment information.
--- NOTE | 2020-10-08 15:00 | DCPLANNER ---
Patient had a follow up appointment scheduled for 10.07.20 with Perlita at Wound Care - patient did attend appointment.
== END 2020-10-03 04:19 | disposition home or self-care (01) ==
PROVIDERS: Emergency Provider Emergency Medicine; PCP Family Medicine
DX: M79.89 Other specified soft tissue disorders (principal); M79.605 Pain in left leg; M79.604 Pain in right leg; Z79.84 Long term (current) use of oral hypoglycemic drugs; Z79.82 Long term (current) use of aspirin; I11.0 Hypertensive heart disease with heart failure; I50.33 Acute on chronic diastolic (congestive) heart failure; E11.9 Type 2 diabetes mellitus without complications; E78.5 Hyperlipidemia, unspecified; Z77.22 Contact with and (suspected) exposure to environmental tobacco smoke (acute) (chronic)
CPT/HCPCS: 71045; 80053; 83880; 85025; 93922; 93970; 96374; 96375; 99284; J1940; J2270; J2405

== ENCOUNTER 2020-10-07 08:23 | Outpatient (CLI) | payer MEDICARE, OTHER, SELFPAY ==
--- NOTE | 2020-10-08 14:58 | DCPLANNER ---
Patient had a follow up appointment scheduled for 10.07.20 with Wound Care - patient did attend appointment.
== END 2020-10-07 08:24 | disposition home or self-care (01) ==
LOC: WOUND 08:24
PROVIDERS: PCP Family Medicine; Visit Provider Nurse Practitioner Family
DX: L97.822 Non-pressure chronic ulcer of other part of left lower leg with fat layer exposed (principal); L97.812 Non-pressure chronic ulcer of other part of right lower leg with fat layer exposed
CPT/HCPCS: 99215

== ENCOUNTER 2020-10-14 09:01 | Outpatient (CLI) | payer MEDICARE, OTHER, SELFPAY | END 2020-10-14 09:02 | disposition home or self-care (01) | LOC: WOUND 09:03 | PROVIDERS: PCP Family Medicine; Visit Provider Nurse Practitioner Family | DX: I96 Gangrene, not elsewhere classified (principal); L97.822 Non-pressure chronic ulcer of other part of left lower leg with fat layer exposed; L97.812 Non-pressure chronic ulcer of other part of right lower leg with fat layer exposed | CPT/HCPCS: 11042; 11045 ==

== ENCOUNTER 2020-10-14 10:40 | Inpatient (IN) | payer MEDICARE, OTHER, SELFPAY ==
[2020-10-14] VITALS (12 sets, daily range): BP systolic 77–93; BP diastolic 49–70; PULSE 0–160; RESP 16–38; TEMP 36.1–36.6; O2SAT 77–100; BMI 26.7
--- NOTE | 2020-10-14 12:04 | USCV_ITS ---
Pantera Henriquez Age: 79 Gender: M : 1940 Exam Date: 10/14/2020 12:20 Ordering Phys: Benigno Sullivan DO Technologist: Sheldon Rodriguez Exam Location: [facility] [place] Indication: MASSIVE PEDAL EDEMA HISTORY: Lower extremity swelling. Lower extremity edema. PROCEDURES: The venous duplex Doppler examination of both lower extremities was performed in the standard fashion. The following venous structures were evaluated: common femoral vein, profunda vein, proximal portion of the greater saphenous vein, superficial femoral vein, and the popliteal vein. Bilaterally, the common femoral, superficial femoral, profunda femoral, popliteal, posterior tibial, greater saphenous veins, and the peroneal trunk were identified and interrogated in the standard fashion. These veins were found to be easily compressible with spontaneous blood flow. No evidence of insufficiency or thrombus noted. FINDINGS: Normal 2-D Doppler and augmentation and compressibility throughout the lower extremity venous structures. Additional imaging through the proximal calf veins also reveals no thrombus. Limited evaluation of the greater saphenous vein is patent with no thrombus.. CONCLUSIONS No evidence of DVT in the above-mentioned identifiable veins. Dr Yareli Benítez MD [facility] (Electronically Signed) Final Date: 16 Oct 2020 07:47 S
--- NOTE | 2020-10-14 12:04 | USCV_ITS ---
Pantera Henriquez Age: 79 Gender: M : 1940 Exam Date: 10/14/2020 12:30 Ordering Phys: Benigno Sullivan DO Technologist: Sheldon Rodriguez [place] [facility] [place]ication: COLD HANDS Risk Factors: Previous Vascular Surgery: Right BP: / Left BP: / RIGHT LEFT PSV PSV (cm/s) (cm/s) Waveform Waveform Triphasic 109.0 Subclavian Proximal 75.0 Triphasic Triphasic 54.0 Axillary 75.0 Triphasic Triphasic 48.0 Brachial Mid 67.0 Biphasic Biphasic 20.0 Radial Proximal Radial Mid 32.0 Biphasic Biphasic 17.0 Ulnar Mid 32.0 Biphasic .95 Radial/Brachial Index 1.1 FINDINGS Patent axillary, brachial, radial and ulnar arteries bilaterally High resistance flow pattern in the mid ulnar and radial arteries bilaterally Normal resting RBIs bilaterally CONCLUSIONS 1. Patent upper extremity arteries bilaterally 2. High resistant flow pattern may suggest endothelial dysfunction/extensive arterial sclerosis 3. No significant arterial obstruction, based on the above findings Dr Yareli Benítez MD [facility] (Electronically Signed) Final Date: 16 Oct 2020 07:54 S
[2020-10-14 12:20] LABS: Basophils % 0.4 %; Eosinophils % 0.2 %; Hematocrit 50.6 % (42.0-52.0); Hemoglobin 16.8 g/dL (11.7-16.6); Lymphocytes # 0.6 10^3/uL (0.8-4.8); Lymphocytes % 5.5 %; Mean Corpuscular HGB Conc 33.2 g/dL (30.0-36.0); Mean Corpuscular Volume 87.2 fL (80-94); Mean Platelet Volume 11.5 fL (7.4-10.4); Monocytes # 0.7 10^3/uL (0.2-0.9); Monocytes % 6.4 %; Neutrophils # 9.53 10^3/uL (1.8-7.7); Nucleated Red Blood Cells % 0 %; Platelet Count 254 10^3/cmm (130-400); Red Cell Distribution Width 14.9 % (12.1-15.1); White Blood Count 10.9 10^3/uL (4.0-10.0)
--- NOTE | 2020-10-14 12:27 | W.ED.SKABFB ---
HPI - Skin/Abscess/Foreign Bdy General: Chief complaint: Skin/Abscess/Foreign Body Stated complaint: cellulitis Time Seen by Provider: 10/14/20 11:23 History of Present Illness: HPI narrative: 89-year-old male presents emergency room from the wound care clinic. Midlevel there referred him here because of elevated creatinine as well as erythematous weeping open wounds of the legs. Wounds were bandaged today. They are mildly erythematous he denies any fever he has been a little short of breath at times but states that somewhat chronic is not significantly changed. Patient is diabetic and on Metformin MD complaint: other (venous stasis wounds LE bilateral) Onset (ago): month(s) Tetanus up to date: unsure Location: LLE and RLE Severity: severe Relieving factors: none Exacerbating factors: none Associated symptoms: Reports short of breath; Deny arthralgias, chills, cough, fever(s), itching, myalgias, nausea, rigidity or vomiting Treatments prior to arrival: bandages Review of Systems Const: Denies: fever(s) or chills ENMT: Denies: throat pain, ear or mastoid pain, nasal discharge or nasal congestion Card: Denies: chest pain, edema, dyspnea on exertion or orthopnea Resp: Denies: dyspnea, productive cough or non-productive cough GI: Denies: nausea or vomiting : Denies: flank pain, dysuria, urinary frequency or urinary urgency Skin/Breast: Denies: rash or pruritus [facility] ED PFSH: Medical History (Updated 10/14/20 @ 13:50 by Benigno Sullivan DO) Acute cystitis Acute on chronic diastolic (congestive) heart failure Cor pulmonale (chronic) Diabetes mellitus Diastolic heart failure due to valvular disease Elevated PSA Gouty arthritis of left foot Hyperlipemia Hypertension Leg swelling Pulmonary hypertension Varicose vein of leg Family History Father , 72 Hypertension Chronic kidney disease (CKD) Mother , 81 CAD (coronary artery disease) Hypertension Diabetes Social History Smoking and tobacco status: never smoked Second hand smoke exposure: Yes Alcohol intake: never Lives independently: Yes Household members: spouse Marital status: Current occupational status: retired History of recent travel: No Current gender identity: Male Physical Exam Const: COMMON NORMALS: no acute distress GENERAL APPEARANCE: cooperative and comfortable ORIENTATION/CONSCIOUSNESS: Yes awake, Yes oriented to person, Yes oriented to place and Yes oriented to time HENMT: COMMON NORMALS: normocephalic, atraumatic and hearing grossly normal bilaterally HEAD & SCALP: normocephalic and atraumatic Neck/C-Spine: COMMON NORMALS: no JVD Resp: COMMON NORMALS: normal respiratory effort, No retractions, No use of accessory muscles and clear to auscultation bilaterally AUSCULTATION: clear to auscultation bilaterally Cardio: COMMON NORMALS: no JVD, regular rate, regular rhythm and No murmurs present (Cardio) RATE: regular rate RHYTHM: regular rhythm GI: COMMON NORMALS: Soft to palpation and No hepatosplenomegaly present AUSCULTATION: Yes normoactive bowel sounds PALPATION: Yes Soft to palpation, No Tenderness to palpation present (GI), No Guarding due to palpation present (GI) and Yes No hepatosplenomegaly present Extremity: NARRATIVE EXTREMITY EXAM: Bilateral leg wounds open on the lower extremities superficial sloughing of the dermis with large amounts of serous drainage mild erythema chronic edema no purulent drainage Neuro: SENSORIUM/ORIENTATION: Yes oriented to person, Yes oriented to place and Yes oriented to time Course Vital Signs: Vital signs: Vital Signs Temperature 96.9 F L 10/14/20 11:06 Pulse Rate 160 H 10/14/20 12:28 Respiratory Rate 38 H 10/14/20 12:28 Blood Pressure 77/49 10/14/20 11:06 Pulse Oximetry 77 L 10/14/20 12:28 MDM - Skin/Abscess/Foreign Bdy MDM Narrative: Medical decision making narrative: Cute kidney injury hyponatremia hyperkalemia we will give Kayexalate start vancomycin adjust dose to renal function discussed with hospitalist orders written Lab Data: Labs: Lab Results 10/14/20 10/14/20 10/14/20 Range/Units 11:57 11:57 12:18 WBC 10.9 H (4.0-10.0) 10^3/ uL RBC 5.80 H (4.1-5.3) 10^6/u L Hgb 16.8 H (11.7-16.6) g/dL Hct 50.6 (42.0-52.0) % MCV 87.2 (80-94) fL MCH 29.0 (28.0-34.0) pg MCHC 33.2 (30.0-36.0) g/dL RDW 14.9 (12.1-15.1) % Plt Count 254 (130-400) 10^3/c mm MPV 11.5 H (7.4-10.4) fL Neut % (Auto) 87.0 % Lymph % (Auto) 5.5 % [place] % (Auto) 6.4 % Eos % (Auto) 0.2 % Baso % (Auto) 0.4 % Neut # (Auto) 9.53 H (1.8-7.7) 10^3/u L Lymph # (Auto) 0.6 L (0.8-4.8) 10^3/u L [place] # (Auto) 0.7 (0.2-0.9) 10^3/u L Eos # (Auto) 0.0 (0.0-0.8) 10^3/u L Baso # (Auto) 0.0 (0.0-0.1) 10^3/u L Nucleated RBC % (a uto) 0 % Nucleated RBCs # 0.0 /100WBC Sodium 127 L (136-145) mmol/L Potassium 5.7 H (3.5-5.1) mmol/L Chloride 93 L (98-107) mmol/L Carbon Dioxide 13 L (22-29) mmol/L Anion Gap 26.7 H (5-19) BUN 93 H* D (8-23) mg/dL Creatinine 4.5 H (0.7-1.2) mg/dL GFR Calculation Not Reportable Glucose 122 H (65-115) mg/dL Calculated Osmolal ity 294 (285-295) mOsm/k g Calcium 8.9 (8.5-10.5) mg/dL Total Bilirubin 2.4 H (0.15-1.2) mg/dL AST 17 (0-40) U/L ALT 13 (0-41) U/L Alkaline Phosphata se 234 H (40-130) IU/L Total Protein 7.5 (6.6-8.7) g/dL Albumin 3.5 (3.5-5.2) g/dL Globulin 4.0 (1.3-4.6) g/dL Urine Color Yellow (Yellow) Urine Appearance Hazy A (CLEAR) Urine pH 5 (5-7) Ur Specific Gravit y 1.020 (1.005-1.030) Urine Protein Trace (Negative) Urine Glucose (UA) Norm (Normal) Urine Ketones Negative (Negative) Urine Blood Neg (Negative) Urine Nitrate Negative (Negative) Urine Bilirubin 1+ H (Negative) Urine Urobilinogen Norm (Negative) mg/dL Ur Leukocyte Yanet ase Negative (Negative) Urine RBC None (0-2) /hpf Urine WBC 0-4 H (0-5) /hpf Ur Squamous Epith Cells 0-4 H (0-5) /hpf Amorphous Sediment Not Reportable Urine Bacteria 2+ H (NONE) /hpf Hyaline Casts 5-10 H /lpf Coarse Granular Ca sts 0-4 H /lpf Urine Mucus Trace /hpf Discharge Plan Discharge Patient Disposition: Admitted As Inpatient Clinical Impression: JACOBY (acute kidney injury), Diabetic ulcer of lower leg, Hyperkalemia, Acute hyponatremia Condition: Stable Coding Level of Care Code ED Area Loss Prevention Manager for Chg Fwd Exam Detailed
[2020-10-14 12:49] LABS: Blood Urine Neg (Negative); Glucose Urine UA Norm (Normal); Ketones Urine Negative (Negative); Nitrate Urine Negative (Negative); Protein Urine Trace (Negative); Urine Appearance Hazy (CLEAR); Urine Color Yellow (Yellow); pH Urine 5 (5-7)
[2020-10-14 12:51] LABS: Add Urine Microscopic? YES; Bacteria Urine 2+ /hpf; Bilirubin Urine 1+ (Negative); Leukocyte Esterase Urine Negative (Negative); Mucus Urine TRACE /hpf; Squamous Epithelial Cell Urine 0-4 /hpf (0-5); Urobilinogen Urine Norm (Negative); WBC Urine 0-4 /hpf (0-5)
[2020-10-14 12:52] LABS: Coarse Granular Casts Urine 0-4 /lpf
[2020-10-14 12:52] LABS: Alanine Aminotransferase 13 U/L (0-41); Albumin Level 3.5 g/dL (3.5-5.2); Alkaline Phosphatase 234 IU/L (40-130); Anion Gap 26.7 (5-19); Aspartate Amino Transferase 17 U/L (0-40); Calcium 8.9 mg/dL (8.5-10.5); Carbon Dioxide 13 mmol/L (22-29); Chloride 93 mmol/L (98-107); Glucose 122 mg/dL (65-115); Osmolality Calculated 294 mOsm/kg (285-295); Potassium 5.7 mmol/L (3.5-5.1); Sodium 127 mmol/L (136-145); Total Bilirubin 2.4 mg/dL (0.15-1.2); Total Protein 7.5 g/dL (6.6-8.7)
[2020-10-14 12:53] LABS: Add Urine Culture? No
[2020-10-14 12:55] LABS: Blood Urea Nitrogen 93 mg/dL (8-23)
--- NOTE | 2020-10-14 14:11 | CTR_ITS ---
PROCEDURE INFORMATION: Exam: CT Abdomen And Pelvis Without Contrast Exam date and time: 10/14/2020 2:30 PM Age: 79 years old Clinical indication: Abnormal findings; Abnormal lab test; Other: Hyperbilirubinemia, chato TECHNIQUE: Imaging protocol: Computed tomography of the abdomen and pelvis without contrast. Radiation optimization: All CT scans at this facility use at least one of these dose optimization techniques: automated exposure control; mA and/or kV adjustment per patient size (includes targeted exams where dose is matched to clinical indication); or iterative reconstruction. COMPARISON: CR Hips Bilat 3-4v wwo Pelv [id number] 05/29/2017 12:02 PM RADIATION DOSE METRICS: Total DLP (mGy-cm): 1707.94 FINDINGS: Liver: Findings are consistent with liver cirrhosis. No liver mass on these noncontrast images. Gallbladder and bile ducts: Normal. No calcified stones. No ductal dilation. Pancreas: Normal. No ductal dilation. Spleen: Normal. No splenomegaly. Adrenal glands: Normal. No mass. Kidneys and ureters: Normal. No hydronephrosis. Stomach and bowel: There is stool throughout the colon. No bowel obstruction.Colonic diverticula are present although there are no CT findings to suggest diverticulitis. Appendix: No evidence of appendicitis. Intraperitoneal space: Unremarkable. No free air. No significant fluid collection. Vasculature: Unremarkable. No abdominal aortic aneurysm. Lymph nodes: Unremarkable. No enlarged lymph nodes. Urinary bladder: Unremarkable as visualized. Reproductive: Unremarkable as visualized. Bones/joints: Degenerative change is identified in the spine. There is no evidence for acute fracture or malalignment. Soft tissues: There is soft tissue anasarca. CT/CT abdomen pelvis wo con [id number] IMPRESSION: There are no acute concerning abnormalities. Radiation Dose CTDIVOL = (mGy): DLP = 1707.94 (mGy-cm)
[2020-10-14] MEDS: vancomycin 1,500 MG/300 ML PIGGYBACK 200 MG IV (14:45)
[2020-10-14] MEDS: sodium chloride 0.9% 1,000 ML 999 ML IV (14:49)
[2020-10-14] MEDS: sodium polystyrene sulfonate 15 gm/60 mL Btl 30 GM PO ×2 (14:50→16:05)
[2020-10-14] MEDS: sodium chloride 0.9% 1,000 ML 100 ML IV (16:06)
--- NOTE | 2020-10-14 18:00 | PM.HP ---
Providers/Chief Complaint Admitting Physician: Awa Mcghee MD Primary Care Provider: Kimberly Ann DO Chief Complaint: AB PAIN History of Present Illness Pantera Henriquez is a 79 year old male with PMH as outlined below who follows with wound care for B/L LE ulceration, recently started on po keflex and cipro as outpatient on 10/13/20, sent in from the [facility] after being noted to have abnormal labs incl Cr >4, hyperkalemia, hyponatremia. 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 Review of Systems General: Reports: 10 or more systems reviewed and unremarkable except in HPI and below Const: Denies: fever(s), chills or body aches Eyes: Denies: change in vision, blurry vision or photophobia ENMT: Reports: hoarseness; Denies: throat pain, enlarged tonsils, odynophagia or nasal congestion Card: Denies: chest pain, palpitations, irregular heart rhythm, edema, swelling of feet/ankles, lightheadedness, pre-syncope, dyspnea on exertion or orthopnea Resp: Denies: dyspnea, productive cough, non-productive cough, wheezing, stridor, pain on inspiration, change in phlegm color, hemoptysis or chest congestion GI: Denies: abdominal pain, nausea, vomiting, hematemesis, coffee ground emesis, dysphagia, heartburn, diarrhea, constipation, GI cramping, change in stool character, hematochezia or melena : Denies: flank pain, dysuria, urinary frequency, urinary urgency, urinary hesitancy or hematuria Musc: Denies: neck pain, back pain, extremity pain, joint swelling, joint warmth or deformity Neuro: Denies: headache(s), numbness in extremities, weakness in extremities, sensory changes, difficulty walking, frequent falls, dizziness, vertigo, behavioral changes, Slurred speech present or seizure-like activity Psych: Denies: anxiety, depression, suicidal ideation or homicidal ideation Endo: Denies: polyuria, polydipsia, tired all the time, cold intolerance or hot flashes Lobito/Lymph: Denies: easy bruising or easy bleeding Medications/Allergies Home Medications Medication Instructions Recorded Confirmed Last Taken Type aspirin 81 mg tablet,delayed 81 mg PO DAILY tab 06/28/19 10/14/20 10/13/20 History release metformin 1,000 mg tablet,extended 1,000 mg PO BID 06/28/19 10/14/20 10/13/20 History release 24hr simvastatin 20 mg PO DAILY 08/18/19 10/14/20 10/13/20 History sildenafil (pulm.hypertension) 20 20 mg PO TID 01/09/20 10/14/20 Unknown History mg tablet buspirone 7.5 mg PO BID 10/14/20 10/14/20 10/13/20 History cephalexin 500 mg PO BID 10/14/20 10/14/20 10/13/20 History ciprofloxacin HCl 250 mg PO BID 10/14/20 10/14/20 10/13/20 History gabapentin 300 mg PO TID 10/14/20 10/14/20 10/13/20 History indomethacin 50 mg PO TID 10/14/20 10/14/20 10/13/20 History metoprolol tartrate 25 mg PO BID 10/14/20 10/14/20 10/13/20 History potassium chloride 20 meq PO DAILY 10/14/20 10/14/20 10/13/20 History tramadol 50 mg PO TID PRN 10/14/20 10/14/20 Unknown History Allergies Allergy/AdvReac Type Severity Reaction Status Date / Time No Known Allergies Allergy Verified 10/14/20 11:10 PFSH Acute PFSH: Medical History Acute cystitis Acute on chronic diastolic (congestive) heart failure Cor pulmonale (chronic) Diabetes mellitus Diastolic heart failure due to valvular disease Elevated PSA Gouty arthritis of left foot Hyperlipemia Hypertension Leg swelling Pulmonary hypertension Varicose vein of leg Family History Father , 72 Hypertension Chronic kidney disease (CKD) Mother , 81 CAD (coronary artery disease) Hypertension Diabetes Social History Smoking and tobacco status: never smoked Second hand smoke exposure: Yes Alcohol intake: never Lives independently: Yes Household members: spouse Marital status: Current occupational status: retired History of recent travel: No Current gender identity: Male Vitals/I&O/Wt Last Vital Signs Temp 96.9 F L 10/14/20 16:05 Pulse 83 10/14/20 16:05 Resp 16 10/14/20 16:05 BP 90/58 10/14/20 16:05 Pulse Ox 99 10/14/20 16:05 10/14/20 10/14/20 10/14/20 06:59 14:59 22:59 Intake Total 1540 / 1540 Balance 1540 / 1540 Weight last 48 hrs Weight 92.079 kg Physical Exam Narrative: EXAM NARRATIVE: General: No acute distress, AO x3, dehydrated,chronically ill appearing HEENT: PERRLA, pupils bilaterally equal and reactive, pallors not present Chest: Normal vesicular breath sounds, no added sounds, equal good air entry bilaterally CVS: S1-S2 regular, no murmurs, no tachycardia, no gallops, no rubs Abdomen: Soft, nontender, no organomegaly, bowel sounds present Neuro: No focal deficits, no facial deformity, AO x3, power 5/5 in all limbs Extremities: B/L LE cellulitis, erythema and multiple superficial ulceration Data : 10/14/20 11:57 10/14/20 20:20 Micro: Microbiology 10/14/20 12:52 Blood Culture - Preliminary Blood SPECIMEN COLLECTED 10/14/20 11:57 Blood Culture - Preliminary Blood SPECIMEN COLLECTED A&P Assessment and plan (1) JACOBY (acute kidney injury): Patient appearing to be clinically dehydrated IVF NS @ 75cc/hr, monitor volume status closely given h/o pulmonary hypertension urine lytes and urine creatinine , urine eosinophils montor I/O CT abdomen without hydronephrosis Francois to monitor accurate output, evaluate for urinary retention Status: Acute (2) Hyperkalemia: s/p Kayexalate, check rpt K at pm tonight Status: Acute (3) Diabetic ulcer of lower leg: Wit B/L LE cellulitis start empiric Zosyn , received vancomycin in ER,dose by levels Status: Acute (4) Acute hyponatremia: Likely 2/2 dehydration IVF as above Status: Acute (5) Pulmonary hypertension: Continue home dose of sildenafil , hold diuretics for now Status: Acute Additional A&P Information DVT ppx: lovenox Full Code Attestations Medical Necessity Statement*: > 2midnight admission for iv abx, JACOBY neeeding IVF resuscitation , hyperkalemia needs correction Coding Level of Care Code Acute Steel Pickler for [facility] Fwd Diagnoses JACOBY (acute kidney injury) N17.9 Hyperkalemia E87.5 Diabetic ulcer of lower leg E11.622; L97.909 Acute hyponatremia E87.1 Pulmonary hypertension I27.20
[2020-10-14] MEDS: piperacillin-tazobactam 3.375 GM in sodium chloride 0.9% (plus) 50 ML IV (19:00)
[2020-10-14] MEDS: TRAMadol 50 mg Tablet PO (19:07)
[2020-10-14 19:47] LABS: Potassium, Radom Urine 57 mmol/L; Urine Creatinine 101 mg/dL (39-259); Urine Random Chloride 15 mmol/L; Urine Random Sodium 11 mmol/L
[2020-10-14] MEDS: gabapentin 300 mg Capsule PO (20:18)
[2020-10-14 20:28] LABS: Glucose Point of Care 163 mg/dL (70-110)
[2020-10-14 20:56] LABS: Alanine Aminotransferase 14 U/L (0-41); Alkaline Phosphatase 227 IU/L (40-130); Anion Gap 29.1 (5-19); Aspartate Amino Transferase 16 U/L (0-40); Calcium 8.6 mg/dL (8.5-10.5); Carbon Dioxide 12 mmol/L (22-29); Chloride 92 mmol/L (98-107); Creatinine Clr Calc Pharmacy 15.4532; Globulin 3.7 g/dL (1.3-4.6); Glucose 173 mg/dL (65-115); Osmolality Calculated 297 mOsm/kg (285-295); Potassium 5.1 mmol/L (3.5-5.1); Sodium 128 mmol/L (136-145); Total Bilirubin 2.5 mg/dL (0.15-1.2); Total Protein 6.7 g/dL (6.6-8.7)
[2020-10-14 21:01] LABS: Blood Urea Nitrogen 88 mg/dL (8-23)
[2020-10-14] MEDS: sodium chloride 0.9% 250 ML IV (22:20)
[2020-10-14 22:46] LABS: Eosinophil Urine No Eosinophils Seen
[2020-10-15] VITALS (10 sets, daily range): BP systolic 89–101; BP diastolic 56–66; PULSE 79–106; RESP 16–20; TEMP 36.3–36.4; O2SAT 95–100
[2020-10-15] MEDS: oxyCODONE-APAP 5-325 mg Tablet 1 TAB PO (00:07)
[2020-10-15] MEDS: piperacillin-tazobactam 3.375 GM in sodium chloride 0.9% (plus) 50 ML IV ×2 (01:31→14:16)
--- NOTE | 2020-10-15 02:23 | PC.PHAR ---
Renal dosing for Zosyn 3.375 q8h changed to q12h due to crcl of 15.56
[2020-10-15] MEDS: sodium chloride 0.9% 1,000 ML 75 ML IV (03:43)
--- NOTE | 2020-10-15 05:58 | PC.NURSE ---
SHIFT SUMMARY Pt started the night telling me he was feeling quite weak. This morning says is feeling better and stronger. Had soft BP's with manual check of 88/[address] was notified of. Held pm dose of Metoprolol and gave a 250ml NS bolus. BP has been some better. Had several large loose/liquid BM's after receiving po Kaexylate in the ER. Had 325mll urine output per Francois. Urine is cloudy and dark. IV infusing at 75ml/hr rate and receiving IV antibiotics. Required new IV start this shift for accidentally pulling IV out. Has edema with weeping from BLE wounds. c/o pain in legs and received po Percocet. BLE get very dark when he is up.
[2020-10-15 06:13] LABS: Basophils % 0.4 %; Eosinophils % 0.1 %; Hematocrit 46.8 % (42.0-52.0); Hemoglobin 15.5 g/dL (11.7-16.6); Lymphocytes # 0.6 10^3/uL (0.8-4.8); Lymphocytes % 5.3 %; Mean Corpuscular HGB Conc 33.1 g/dL (30.0-36.0); Mean Corpuscular Hemoglobin 29.3 pg (28.0-34.0); Mean Corpuscular Volume 88.5 fL (80-94); Mean Platelet Volume 10.7 fL (7.4-10.4); Monocytes % 9.8 %; Neutrophils # 8.69 10^3/uL (1.8-7.7); Nucleated Red Blood Cells % 0 %; Platelet Count 228 10^3/cmm (130-400); Red Blood Count 5.29 10^6/uL (4.1-5.3); White Blood Count 10.3 10^3/uL (4.0-10.0)
[2020-10-15 06:33] LABS: Glucose Point of Care 143 mg/dL (70-110)
[2020-10-15 06:41] LABS: Alanine Aminotransferase 13 U/L (0-41); Albumin Level 2.7 g/dL (3.5-5.2); Alkaline Phosphatase 211 IU/L (40-130); Aspartate Amino Transferase 18 U/L (0-40); Calcium 8.3 mg/dL (8.5-10.5); Carbon Dioxide 13 mmol/L (22-29); Chloride 98 mmol/L (98-107); Globulin 3.6 g/dL (1.3-4.6); Glucose 132 mg/dL (65-115); Osmolality Calculated 307 mOsm/kg (285-295); Sodium 134 mmol/L (136-145); Total Bilirubin 1.8 mg/dL (0.15-1.2); Total Protein 6.3 g/dL (6.6-8.7)
[2020-10-15 07:04] LABS: Blood Urea Nitrogen 89 mg/dL (8-23); Creatinine Clr Calc Pharmacy 15.4532
[2020-10-15 07:05] LABS: Anion Gap 27.5 (5-19); Potassium 4.5 mmol/L (3.5-5.1)
[2020-10-15] MEDS: gabapentin 300 mg Capsule PO (08:13)
[2020-10-15] MEDS: atorvastatin 40 mg Tablet 20 MG PO (08:13)
[2020-10-15] MEDS: aspirin 81 mg EC Tablet PO (08:14)
[2020-10-15 10:00] LABS: Creatine Phosphokinase 60 U/L (39-308)
[2020-10-15 12:21] LABS: Glucose Point of Care 159 mg/dL (70-110)
--- NOTE | 2020-10-15 13:08 | PM.CONSULT ---
Providers/Reason For Consult Consulting Physican/Specialty*: Nephrology Reason for Consult*: Eval for renal failure Attending Physician: Awa Mcghee MD Primary Care Provider: Kimberly Ann DO History of Present Illness History of Present Illness Thank you for consultation, today at the pleasure of reviewing Mr. Henriquez for evaluation of acute renal failure. He has established history of severe pulmonary artery hypertension and is followed by Dr. Hsu as an outpatient. The outpatient clinical documentation is reviewed, he has WHO class II-III and is being treated with sildenafil for this. He was taking combination Lasix, and was previously on metolazone, however, this did precipitate his gout. Despite this, he has heavy lower extremity edema, this is unfortunately complicated by infection and recently has been treated with ciprofloxacin and cefepime. He was seen in the emergency room back on 10/03 for this at which time he received indomethacin. Outpatient labs that identified an elevation in serum creatinine and potassium and he was subsequently admitted to our facility for further evaluation. On 10/03 his creatinine was 2.1, which is higher than previous values in 2019 at which time creatinine was 1.2. Yesterday creatinine had increased to 4.5 and now again up to 4.8. Overnight the creatinine actually remained stable at 4.8 mg/dL. Overnight he may 325 mL of urine and 250 mL today. Yesterday on arrival his potassium was 5.7 and bicarb down to 13 with an anion gap 26.7. After receiving temporizing therapy his potassium is now normalized at 4.5, bicarb still down to 13 and anion gap of 27.5. He actually feels reasonably well. He denies bladder outflow obstructive symptoms on CT scan performed demonstrates no evidence of hydronephrosis. He denies uremic symptoms including nausea vomiting myoclonus etc. Although he has had very heavy lower extremity edema, he is currently breathing quite comfortably at this time on nasal cannula. His blood pressure overnight was soft, 88/58 at the lowest level. Of note during prior hospitalizations back in 2019 his blood pressure was more robust than this. Apart from the indomethacin, no recent exposure to other potentially nephrotoxic agents. Review of Systems Narrative: ROS - 12 point review of systems completed per HPI and subjective assessment, this includes Constitutional: Weakness, fatigue Respiratory: No SOB on exertion, comfortable at rest CardioVasc: No chest pain, palpitations Gastrointestinal: No nausea, no vomiting Neurological: No seizures, no AMS Derm: No new rashes, lesions or wounds Immunological: No seasonal and no food allergies Meds/Allergies Home Medications and Allergies Home Medications Medication Instructions Recorded Confirmed Last Taken Type metformin 1,000 mg tablet,extended 1,000 mg PO BID 06/28/19 10/14/20 10/13/20 History release 24hr simvastatin 20 mg PO DAILY 08/18/19 10/14/20 10/13/20 History buspirone 7.5 mg PO BID 10/14/20 10/14/20 10/13/20 History gabapentin 300 mg PO TID 10/14/20 10/14/20 10/13/20 History metoprolol tartrate 25 mg PO BID 10/14/20 10/14/20 10/13/20 History potassium chloride 20 meq PO DAILY 10/14/20 10/14/20 10/13/20 History tramadol 50 mg PO TID PRN 10/14/20 10/14/20 Unknown History aspirin 325 mg PO DAILY 10/15/20 10/15/20 10/13/20 History furosemide 40 mg PO BID 10/15/20 10/15/20 Unknown History Allergies Allergy/AdvReac Type Severity Reaction Status Date / Time No Known Allergies Allergy Verified 10/14/20 11:10 Current Medications Current Medications Generic Name Dose Route Start Last Admin Trade Name Freq PRN Reason Stop Dose Admin Aspirin 81 mg 10/15/20 09:00 10/15/20 08:14 Aspirin 81 Mg Ec Tablet PO 81 mg DAILY YAZ Administration Atorvastatin Calcium 20 mg 10/15/20 09:00 10/15/20 08:13 Atorvastatin 40 Mg Tablet PO 20 mg DAILY YAZ Administration Oxycodone/Acetaminophen 1 tab 10/14/20 23:45 10/15/20 00:07 Oxycodone-Apap 5-325 Mg Tablet PO 1 tab Q4H PRN Administration MODERATE PAIN Tramadol HCl 50 mg 10/14/20 17:57 10/14/20 19:07 Tramadol 50 Mg Tablet PO 50 mg TID PRN Administration Pain PFSH Acute PFSH: Medical History Acute cystitis Acute on chronic diastolic (congestive) heart failure Cor pulmonale (chronic) Diabetes mellitus Diastolic heart failure due to valvular disease Elevated PSA Gouty arthritis of left foot Hyperlipemia Hypertension Leg swelling Pulmonary hypertension Varicose vein of leg Family History Father , 72 Hypertension Chronic kidney disease (CKD) Mother , 81 CAD (coronary artery disease) Hypertension Diabetes Social History Smoking and tobacco status: never smoked Second hand smoke exposure: Yes Alcohol intake: never Lives independently: Yes Household members: spouse Marital status: Current occupational status: retired History of recent travel: No Current gender identity: Male Vitals/I&O/Wt Last Vital Signs Temp 97.4 F L 10/15/20 12:00 Pulse 106 H 10/15/20 12:00 Resp 18 10/15/20 12:00 BP 89/61 10/15/20 12:00 Pulse Ox 98 10/15/20 12:00 10/14/20 10/15/20 10/15/20 22:59 06:59 14:59 Intake Total 1888.750 / 1888.750 557.917 / 2446.667 360 / 360 Output Total 325 / 325 Balance 1888.750 / 1888.750 232.917 / 2121.667 360 / 360 Weight last 48 hrs Weight 92.079 kg Physical Exam Narrative: EXAM NARRATIVE: Constitutional: Awake, comfortable HEENT: Wet mucosa, no jvp, non icteric Lungs: Bilaterally clear without discernible wheeze, rales in all lung zones CVS: S1 S2, no murmurs Abdo: Soft, BS ok Ext 4: 2-3+ edema, erythema, peripheral perfusion with no cyanosis Neurological: Grossly non-focal Urinary Catheter Management^: Francois: Cath Placed During This Visit: yes Reason for Continuing Indwelling Catheter: Acute Urinary Retention or Obstruction Urinary Catheter Date of Insertion: 10/14/20 Urinary Catheter Time of Insertion: 19:08 Data Micro: Micro: Microbiology 10/14/20 11:57 Blood Culture - Pr eliminary Blood NEGATIVE TO BABAR E 10/14/20 12:52 Blood Culture - Pr eliminary Blood SPECIMEN COLLEC SAW A&P Additional A&P Information 1. Acute renal failure Appreciate fractional excretion of sodium was down to 0.4% suggesting renal hypoperfusion, which is likely from relative hypotension in the setting of elevated right-sided pressures i.e. passive renal congestion in the setting of decreased glomerular pressure from NSAID effect. Agree with gentle IV hydration for the time being, will hold metoprolol, obviously we are now avoiding anti-inflammatory drugs. Apart from the acidosis, no other indications for dialysis at this time, and I will attempt to temporize the acidosis with a bicarb infusion. He is close to needing dialysis, however, no acute indication today. Other diagnostic testing to include CPK level, TSH, uric acid. Strict ins and outs Avoid usual nephrotoxic agents Dose medications for GFR less than 15, i.e. drop gabapentin dosing to 300 once daily. 2. Chemistry Overt anion gap metabolic acidosis, likely secondary to uremia, however, lactic acidosis needs to be excluded especially given recent Metformin exposure. We will give bicarb infusion Other chemistry looks to be mildly aberrant and noncritical including hyponatremia, of note corrected calcium was within normal range. 3. 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 Currently on combination Zosyn and vancomycin. Thank you for consultation, as always it is a pleasure for our team to follow these cases with you. John Chambers MD Nephrology [phone] Patient seen and examined via telemedicine, with the assistance of the bedside RN > 25 min spent in evaluation and mgmt of patient Consult Attestations Medical Necessity Statement: Eval for JACOBY Coding Level of Care Code Acute Store Management Trainee for Sourav Estrada
[2020-10-15 14:29] LABS: Thyroid Stimulating Hormone 4.86 uIU/mL (0.27-4.20)
[2020-10-15 15:02] LABS: Creatine Phosphokinase 66 U/L (39-308)
[2020-10-15] MEDS: sodium bicarbonate 150 MEQ in dextrose 5% 1,000 ML 100 MEQ IV (15:19)
[2020-10-15] MEDS: TRAMadol 50 mg Tablet PO (15:42)
--- NOTE | 2020-10-15 16:57 | PM.PN ---
Subjective Subjective: Interval history: creatinine worsened today to 4.8, poor urine output, 325 mL events overnight. Patient denies any new complaints, increasing lower extremity edema and weeping from his wounds. Medications: Reviewed: Yes Vitals/I&O/Wt Last Vital Signs Temp 97.4 F L 10/15/20 15:55 Pulse 92 10/15/20 15:55 Resp 18 10/15/20 16:00 BP 92/56 10/15/20 15:55 Pulse Ox 96 10/15/20 15:55 10/15/20 10/15/20 10/15/20 06:59 14:59 22:59 Intake Total 557.917 / 2446.667 480 / 480 Output Total 325 / 325 550 / 550 Balance 232.917 / 2121.667 480 / 480 -550 / -70 Weight last 48 hrs Weight 92.079 kg Physical Exam Narrative: EXAM NARRATIVE: General: No acute distress, AO x3,chronically ill appearing HEENT: PERRLA, pupils bilaterally equal and reactive, pallors not present Chest: Normal vesicular breath sounds, no added sounds, equal good air entry bilaterally CVS: S1-S2 regular, no murmurs, no tachycardia, no gallops, no rubs Abdomen: Soft, nontender, no organomegaly, bowel sounds present Neuro: No focal deficits, no facial deformity, AO x3, power 5/5 in all limbs Extremities: B/L LE cellulitis, erythema and multiple superficial ulcerations, gorss edema Urinary Catheter Management^: Francois: Cath Placed During This Visit: yes Reason for Continuing Indwelling Catheter: Acute Urinary Retention or Obstruction Urinary Catheter Date of Insertion: 10/14/20 Urinary Catheter Time of Insertion: 19:08 Data : 10/15/20 05:10 10/15/20 05:10 Micro: Microbiology 10/14/20 12:52 Blood Culture - Preliminary Blood NEGATIVE TO DATE 10/14/20 11:57 Blood Culture - Preliminary Blood NEGATIVE TO DATE A&P Assessment and plan (1) JACOBY (acute kidney injury): cr worsening to 4.8 Hyperkalemia resolved with Kayexalate, started on bicarb for metabolic acidosis Appreciate nephrology recommendations Katy 0.4, consistent with prerenal JACOBY , continue gentle iv hydration CT abdomen without hydronephrosis Francois to monitor accurate output, evaluate for urinary retention Status: Acute (2) Hyperkalemia: s/p Kayexalate, check rpt K at pm tonight Status: Acute (3) Diabetic ulcer of lower leg: Wit B/L LE cellulitis start empiric Zosyn , received vancomycin in ER,dose by levels ABD dressing + lymphedema wraps Status: Acute (4) Acute hyponatremia: Likely 2/2 dehydration IVF as above Status: Acute (5) Pulmonary hypertension: Continue home dose of sildenafil , hold diuretics for now Status: Acute Additional A&P Information DVT ppx: lovenox Full Code Attestations Medical Necessity Statement*: JACOBY, rising cr, need for iv abx Coding Level of Care Code Acute Produce Field Merchandiser for [facility] Fwd Diagnoses JACOBY (acute kidney injury) N17.9 Hyperkalemia E87.5 Diabetic ulcer of lower leg E11.622; L97.909 Acute hyponatremia E87.1 Pulmonary hypertension I27.20
[2020-10-15 16:58] LABS: Glucose Point of Care 165 mg/dL (70-110)
[2020-10-15 21:12] LABS: Glucose Point of Care 165 mg/dL (70-110)
[2020-10-16] VITALS (8 sets, daily range): BP systolic 80–114; BP diastolic 52–71; PULSE 77–90; RESP 17–18; TEMP 35.8–37.1; O2SAT 90–100
[2020-10-16] MEDS: sodium bicarbonate 150 MEQ in dextrose 5% 1,000 ML 100 MEQ IV ×2 (01:41→15:39)
[2020-10-16] MEDS: piperacillin-tazobactam 3.375 GM in sodium chloride 0.9% (plus) 50 ML IV ×2 (01:42→18:29)
[2020-10-16 06:17] LABS: Glucose Point of Care 156 mg/dL (70-110)
[2020-10-16 07:55] LABS: Basophils % 0.4 %; Eosinophils % 0.3 %; Hemoglobin 14.5 g/dL (11.7-16.6); Lymphocytes # 0.5 10^3/uL (0.8-4.8); Lymphocytes % 5.2 %; Mean Corpuscular HGB Conc 34.5 g/dL (30.0-36.0); Mean Corpuscular Hemoglobin 29.1 pg (28.0-34.0); Mean Corpuscular Volume 84.3 fL (80-94); Mean Platelet Volume 11.6 fL (7.4-10.4); Neutrophils # 8.45 10^3/uL (1.8-7.7); Neutrophils % 83.5 %; Nucleated Red Blood Cells % 0 %; Platelet Count 224 10^3/cmm (130-400); Red Blood Count 4.98 10^6/uL (4.1-5.3); Red Cell Distribution Width 14.8 % (12.1-15.1); White Blood Count 10.1 10^3/uL (4.0-10.0)
[2020-10-16] MEDS: gabapentin 300 mg Capsule PO (08:02)
[2020-10-16] MEDS: aspirin 81 mg EC Tablet PO (08:02)
[2020-10-16] MEDS: atorvastatin 40 mg Tablet 20 MG PO (08:02)
[2020-10-16 08:09] LABS: Alanine Aminotransferase 14 U/L (0-41); Albumin Level 2.6 g/dL (3.5-5.2); Alkaline Phosphatase 188 IU/L (40-130); Anion Gap 22.9 (5-19); Aspartate Amino Transferase 22 U/L (0-40); Calcium 7.7 mg/dL (8.5-10.5); Carbon Dioxide 18 mmol/L (22-29); Chloride 95 mmol/L (98-107); Globulin 3.4 g/dL (1.3-4.6); Glucose 164 mg/dL (65-115); Osmolality Calculated 307 mOsm/kg (285-295); Sodium 133 mmol/L (136-145); Total Bilirubin 1.4 mg/dL (0.15-1.2)
[2020-10-16 08:25] LABS: Blood Urea Nitrogen 89 mg/dL (8-23); Potassium 2.9 mmol/L (3.5-5.1)
--- NOTE | 2020-10-16 09:10 | P.PN_ITS ---
Subjective Subjective: Interval history: Feels good today. His legs are chronically sore but no new complaints otherwise. Breathing comfortably. UO noted to be 850mL. No uremic Sx. Medications: Reviewed: Yes Vitals/I&O/Wt Last Vital Signs Temp 96.5 F L 10/16/20 08:00 Pulse 84 10/16/20 08:00 Resp 18 10/16/20 08:00 BP 94/55 10/16/20 08:00 Pulse Ox 100 10/16/20 08:00 10/15/20 10/16/20 10/16/20 22:59 06:59 14:59 Intake Total 617 / 1097 1206.667 / 2303.667 Output Total 850 / 850 350 / 1200 Balance -233 / 247 856.667 / 1103.667 Weight last 48 hrs Weight 92.079 kg Physical Exam Narrative: EXAM NARRATIVE: Constitutional: Awake, comfortable HEENT: Wet mucosa, no jvp, non icteric Lungs: Bilaterally clear without discernible wheeze, rales in all lung zones CVS: S1 S2, no murmurs Abdo: Soft, BS ok Ext 4: 2-3+ edema, erythema, peripheral perfusion with no cyanosis Neurological: Grossly non-focal Urinary Catheter Management^: Francois: Cath Placed During This Visit: yes Reason for Continuing Indwelling Catheter: Acute Urinary Retention or Obstruction Urinary Catheter Date of Insertion: 10/14/20 Urinary Catheter Time of Insertion: 19:08 Data : 10/16/20 07:27 10/16/20 07:27 Micro: Microbiology 10/14/20 12:52 Blood Culture - Preliminary Blood NEGATIVE TO DATE 10/14/20 11:57 Blood Culture - Preliminary Blood NEGATIVE TO DATE A&P Additional A&P Information 1. Acute renal failure Improving nicely Appreciate fractional excretion of sodium was down to 0.4% suggesting renal hypoperfusion, which is likely from relative hypotension in the setting of elevated right-sided pressures i.e. passive renal congestion in the setting of decreased glomerular pressure from NSAID effect. Cont ivf for now, saundra stop in the am Strict ins and outs Avoid usual nephrotoxic agents Dose medications for GFR less than 15, i.e. drop gabapentin dosing to 300 once daily. 2. Chemistry Overt anion gap metabolic acidosis, likely secondary to uremia, improving cont bicarb gtt for now K replacement requested for today Other chemistry looks to be mildly aberrant and noncritical including hyponatremia, of note corrected calcium was within normal range. 3. 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 Currently on combination Zosyn and vancomycin. Thank you for consultation, as always it is a pleasure for our team to follow these cases with you. John Chambers MD Nephrology [phone] Patient seen and examined via telemedicine, with the assistance of the bedside RN > 25 min spent in evaluation and mgmt of patient Attestations Medical Necessity Statement*: Eval for JACOBY Coding Level of Care Code Acute Vending Supervisor for Sourav Estrada
[2020-10-16] MEDS: potassium chloride ER 20 mEq Tablet 40 MEQ PO (09:57)
[2020-10-16 11:00] LABS: Glucose Point of Care 184 mg/dL (70-110)
--- NOTE | 2020-10-16 13:43 | P.PN_ITS ---
Subjective Subjective: Interval history: no acute interim events, cr improving to 4.0, urin eoutput 850 cc Medications: Reviewed: Yes Vitals/I&O/Wt Last Vital Signs Temp 98.8 F 10/16/20 11:21 Pulse 78 10/16/20 11:21 Resp 18 10/16/20 11:21 BP 95/61 10/16/20 11:21 Pulse Ox 93 10/16/20 11:21 10/15/20 10/16/20 10/16/20 22:59 06:59 14:59 Intake Total 617 / 1097 1206.667 / 2303.667 360 / 360 Output Total 850 / 850 350 / 1200 Balance -233 / 247 856.667 / 1103.667 360 / 360 Physical Exam Narrative: EXAM NARRATIVE: General: No acute distress, AO x3,chronically ill appearing HEENT: PERRLA, pupils bilaterally equal and reactive, pallors not present Chest: Normal vesicular breath sounds, no added sounds, equal good air entry bilaterally CVS: S1-S2 regular, no murmurs, no tachycardia, no gallops, no rubs Abdomen: Soft, nontender, no organomegaly, bowel sounds present Neuro: No focal deficits, no facial deformity, AO x3, power 5/5 in all limbs Extremities: B/L LE cellulitis, erythema and multiple superficial ulcerations, gorss edema Urinary Catheter Management^: Francois: Cath Placed During This Visit: yes Reason for Continuing Indwelling Catheter: Acute Urinary Retention or Obstr uction Urinary Catheter Date of Insertion: 10/14/20 Urinary Catheter Time of Insertion: 19:08 Data : 10/16/20 07:27 10/16/20 07:27 Micro: Microbiology 10/14/20 12:52 Blood Culture - Preliminary Blood NEGATIVE TO DATE 10/14/20 11:57 Blood Culture - Preliminary Blood NEGATIVE TO DATE A&P Assessment and plan (1) JACOBY (acute kidney injury): cr worsening to 4.8 Hyperkalemia resolved with Kayexalate, started on bicarb for metabolic acidosis Appreciate nephrology recommendations Katy 0.4, consistent with prerenal JACOBY , continue gentle iv hydration CT abdomen without hydronephrosis Francois to monitor accurate output, evaluate for urinary retention Status: Acute (2) Hyperkalemia: s/p Kayexalate, check rpt K at pm tonight Status: Acute (3) Diabetic ulcer of lower leg: Wit B/L LE cellulitis start empiric Zosyn , received vancomycin in ER,dose by levels ABD dressing + lymphedema wraps Status: Acute (4) Acute hyponatremia: Likely 2/2 dehydration IVF as above Status: Acute (5) Pulmonary hypertension: Continue home dose of sildenafil , hold diuretics for now Status: Acute Additional A&P Information DVT ppx: lovenox Full Code Attestations Medical Necessity Statement*: JACOBY, closely monitor cr level with ongoing hydration, monioring for luid overload , need for iv abx Coding Level of Care Code Acute Meat Sales And Storage Manager for [facility] Fwd Diagnoses JACOBY (acute kidney injury) N17.9 Hyperkalemia E87.5 Diabetic ulcer of lower leg E11.622; L97.909 Acute hyponatremia E87.1 Pulmonary hypertension I27.20
[2020-10-16] MEDS: vancomycin 1,500 MG/300 ML PIGGYBACK 200 MG IV (15:26)
[2020-10-16 17:00] LABS: Glucose Point of Care 136 mg/dL (70-110)
[2020-10-16 20:14] LABS: Glucose Point of Care 212 mg/dL (70-110)
[2020-10-17] VITALS (10 sets, daily range): BP systolic 82–97; BP diastolic 58–65; PULSE 84–114; RESP 17–19; TEMP 36.1–36.6; O2SAT 91–100
[2020-10-17] MEDS: piperacillin-tazobactam 3.375 GM in sodium chloride 0.9% (plus) 50 ML IV ×2 (04:21→15:49)
--- NOTE | 2020-10-17 05:19 | PC.NURSE ---
SHIFT SUMMARY Has had a good night without c/o. Very pleasant. Says is feeling much better and stronger. Is hoping to go home soon. Lymphedema wraps in place to BLE. IV infusing at 100ml/hr rate and continues to receive IV antibiotics. threat monitoring analyst has been SR. 1000ml urine output via Francois.
[2020-10-17 06:14] LABS: Glucose Point of Care 198 mg/dL (70-110)
[2020-10-17] MEDS: aspirin 81 mg EC Tablet PO (08:19)
[2020-10-17] MEDS: atorvastatin 40 mg Tablet 20 MG PO (08:19)
[2020-10-17] MEDS: gabapentin 300 mg Capsule PO (08:19)
[2020-10-17] MEDS: TRAMadol 50 mg Tablet PO (08:26)
[2020-10-17 09:42] LABS: Alanine Aminotransferase 15 U/L (0-41); Albumin Level 2.6 g/dL (3.5-5.2); Alkaline Phosphatase 222 IU/L (40-130); Anion Gap 22.2 (5-19); Aspartate Amino Transferase 24 U/L (0-40); Blood Urea Nitrogen 80 mg/dL (8-23); Calcium 7.9 mg/dL (8.5-10.5); Carbon Dioxide 21 mmol/L (22-29); Chloride 93 mmol/L (98-107); Globulin 3.4 g/dL (1.3-4.6); Glucose 175 mg/dL (65-115); Osmolality Calculated 304 mOsm/kg (285-295); Potassium 3.2 mmol/L (3.5-5.1); Sodium 133 mmol/L (136-145); Total Bilirubin 1.5 mg/dL (0.15-1.2)
--- NOTE | 2020-10-17 10:45 | PC.SOCIAL ---
*IMM UPDATE* Gave patient IMM update. Provided him copy of pg 2. Verbalized understanding 10/17/20 @ 1921 Initialed, dated, timed and placed in chart.
[2020-10-17 10:50] LABS: Glucose Point of Care 198 mg/dL (70-110)
[2020-10-17] MEDS: sodium bicarbonate 150 MEQ in dextrose 5% 1,000 ML 100 MEQ IV (12:05)
--- NOTE | 2020-10-17 13:51 | PM.PN ---
Subjective Subjective: Interval history: cr improving, resolved acidosis , no acute interim events Medications: Reviewed: Yes Vitals/I&O/Wt Last Vital Signs Temp 97.7 F 10/17/20 11:23 Pulse 84 10/17/20 11:23 Resp 17 10/17/20 11:23 BP 95/59 10/17/20 11:23 Pulse Ox 91 10/17/20 11:23 10/16/20 10/17/20 10/17/20 22:59 06:59 14:59 Intake Total 590 / 2460 360 / 2820 1680 / 1680 Output Total 700 / 700 300 / 1000 Balance -110 / 1760 60 / 1820 1680 / 1680 Physical Exam Narrative: EXAM NARRATIVE: General: No acute distress, AO x3,chronically ill appearing HEENT: PERRLA, pupils bilaterally equal and reactive, pallors not present Chest: Normal vesicular breath sounds, no added sounds, equal good air entry bilaterally CVS: S1-S2 regular, no murmurs, no tachycardia, no gallops, no rubs Abdomen: Soft, nontender, no organomegaly, bowel sounds present Neuro: No focal deficits, no facial deformity, AO x3, power 5/5 in all limbs Extremities: B/L LE cellulitis, erythema and multiple superficial ulcerations, gorss edema Urinary Catheter Management^: Francois: Cath Placed During This Visit: yes Reason for Continuing Indwelling Catheter: Acute Urinary Retention or Obstruction Urinary Catheter Date of Insertion: 10/14/20 Urinary Catheter Time of Insertion: 19:08 Data : 10/16/20 07:27 10/17/20 09:18 A&P Assessment and plan (1) JACOBY (acute kidney injury): cr improving to 3.3 today Hyperkalemia resolved Appreciate nephrology recommendations Katy 0.4, consistent with prerenal JACOBY , continue gentle iv hydration CT abdomen without hydronephrosis Francois to monitor accurate output, output now 1.7L Status: Acute (2) Hyperkalemia: s/p Kayexalate, check rpt K at pm tonight Status: Acute (3) Diabetic ulcer of lower leg: Wit B/L LE cellulitis start empiric Zosyn , received vancomycin in ER,dose by levels ABD dressing + lymphedema wraps Status: Acute (4) Acute hyponatremia: Likely 2/2 dehydration now improving Status: Acute (5) Pulmonary hypertension: Continue home dose of sildenafil , hold diuretics for now Status: Acute Additional A&P Information DVT ppx: lovenox Full Code Dipso: Home with HH, likely in the upcoming 24-48 hrs dependent on improvement in cellulitis Attestations Medical Necessity Statement*: continued need for iv abx. improving cr, moniror closely for fluid overload Coding Level of Care Code Acute Noxious Weeds And Pest Inspector for [facility] Fwd Diagnoses JACOBY (acute kidney injury) N17.9 Hyperkalemia E87.5 Diabetic ulcer of lower leg E11.622; L97.909 Acute hyponatremia E87.1 Pulmonary hypertension I27.20
--- NOTE | 2020-10-17 15:06 | P.PN_ITS ---
Subjective Subjective: Interval history: feeling better, eating breakfast Medications: Reviewed: Yes Medication Review Details: on bicarbonate gtt Vitals/I&O/Wt Last Vital Signs Temp 97.7 F 10/17/20 11:23 Pulse 84 10/17/20 11:23 Resp 17 10/17/20 11:23 BP 95/59 10/17/20 11:23 Pulse Ox 91 10/17/20 11:23 10/17/20 10/17/20 10/17/20 06:59 14:59 22:59 Intake Total 360 / 2820 1680 / 1680 Output Total 300 / 1000 Balance 60 / 1820 1680 / 1680 Physical Exam Const: COMMON NORMALS: no acute distress GENERAL APPEARANCE: cooperative Resp: COMMON NORMALS: clear to auscultation bilaterally AUSCULTATION: clear to auscultation bilaterally Cardio: COMMON NORMALS: regular rhythm RHYTHM: regular rhythm Extremity: GENERAL: Yes edema Urinary Catheter Management^: Francois: Cath Placed During This Visit: yes Reason for Continuing Indwelling Catheter: Acute Urinary Retention or Obstruction Urinary Catheter Date of Insertion: 10/14/20 Urinary Catheter Time of Insertion: 19:08 Data : 10/16/20 07:27 10/17/20 09:18 Other Labs: potasium 3.2, albumin 2.6, calcium 7.9 CT Abd/Pel: Radiologist's impression: Liver: Findings are consistent with liver cirrhosis. No liver mass on these noncontrast images. Gallbladder and bile ducts: Normal. No calcified stones. No ductal dilation. Pancreas: Normal. No ductal dilation. Spleen: Normal. No splenomegaly. Adrenal glands: Normal. No mass. Kidneys and ureters: Normal. No hydronephrosis. A&P Additional A&P Information 1. Acute kidney injury, improving with hydration 2. Metabolic acidosis resolved, hyponatremia improving 3. Hypokalemia 4. Severe pulmonary hypertension, likely cor pulmonale, + cirrhosis Recommend: Change IVF to NSS at 60 ml/hour. Replace KcL po. Hold on addition of oral bicarbonate for now. Attestations Medical Necessity Statement*: see above Coding Level of Care Code Acute Maple Products Maker for Sourav Estrada
[2020-10-17] MEDS: potassium chloride ER 20 mEq Tablet 40 MEQ PO (15:48)
[2020-10-17] MEDS: sodium chloride 0.9% 1,000 ML 60 ML IV (15:48)
[2020-10-17 17:05] LABS: Glucose Point of Care 184 mg/dL (70-110)
[2020-10-17 19:51] LABS: Glucose Point of Care 151 mg/dL (70-110)
[2020-10-18] VITALS (91 sets, daily range): BP systolic 71–115; BP diastolic 56–91; PULSE 68–134; RESP 7–31; TEMP 36.4–36.6; O2SAT 65–95
--- NOTE | 2020-10-18 02:29 | ECG_ITS ---
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 Measurements Intervals [place] Rate: 144 P: FL: QRS: 151 QRSD: 115 T: -34 QT: 329 QTc: 510 Interpretive Statements ATRIAL FIBRILLATION WITH RAPID VENTRICULAR RESPONSE INCOMPLETE RIGHT BUNDLE BRANCH BLOCK [90+ ms QRS DURATION, TERMINAL R IN V1/V2, 40+ ms S IN I/aVL/V4/V5/V6] ANTEROSEPTAL MYOCARDIAL INFARCTION [40+ ms Q WAVE IN V1-V4], OF INDETERMINATE AGE Compared to ECG 08/18/2019 09:31:33 Sinus rhythm no longer present First degree AV block no longer present Right ventricular hypertrophy no longer present ST (T wave) deviation no longer present Myocardial infarct finding still present Electronically Signed On 10-22-2020 9:42:10 CDT by Nella Thomas M.D. [id number]
[2020-10-18] MEDS: sodium chloride 0.9% 500 ML 999 ML IV (02:42)
[2020-10-18 03:20] LABS: Alanine Aminotransferase 15 U/L (0-41); Albumin Level 2.7 g/dL (3.5-5.2); Alkaline Phosphatase 254 IU/L (40-130); Anion Gap 22.2 (5-19); Aspartate Amino Transferase 25 U/L (0-40); Blood Urea Nitrogen 75 mg/dL (8-23); Calcium 7.8 mg/dL (8.5-10.5); Carbon Dioxide 21 mmol/L (22-29); Chloride 95 mmol/L (98-107); Globulin 2.5 g/dL (1.3-4.6); Glucose 144 mg/dL (65-115); Osmolality Calculated 305 mOsm/kg (285-295); Phosphorus 4.8 mg/dL (2.5-4.5); Potassium 3.2 mmol/L (3.5-5.1); Sodium 135 mmol/L (136-145); Total Bilirubin 1.6 mg/dL (0.15-1.2); Total Protein 5.2 g/dL (6.6-8.7)
[2020-10-18 03:30] LABS: D Dimer 1.79 ug/mIFEU (0-0.59)
[2020-10-18 04:03] LABS: Platelet Count 229 10^3/cmm (130-400)
--- NOTE | 2020-10-18 04:34 | PM.EVENT ---
Event Note Event Note: I was notified for his tachyarrhythmia heart rate 140s Stat EKG showed A. fib RVR patient started having pleuritic chest pain and hemoptysis stat D-dimer was requested which came back high Concern for pulmonary embolism, his oxygen requirement increased from 3 L to 5 L Transferred to CSU Started amnio drip because of hypotension and A. fib RVR Start heparin drip
[2020-10-18 04:42] LABS: Partial Thromboplastin Time 50.3 SECONDS (23.9-36.7)
[2020-10-18 05:14] LABS: NT Pro B Type Natriuretic Pept 23608 pg/mL (0-450)
[2020-10-18] MEDS: heparin drip 25,000 UNIT/500 ML PREMIX 26 UNIT IV (05:25)
[2020-10-18] MEDS: heparin 5,000 unit/mL INJ 1 mL IV (05:26)
--- NOTE | 2020-10-18 06:17 | PM.PN ---
Subjective Subjective: Interval history: shortness of breath developed overnight, + blood tinged sputum A fib RVR, moved to CSU Medications: Reviewed: Yes Vitals/I&O/Wt Last Vital Signs Temp 97.9 F 10/18/20 03:59 Pulse 106 H 10/18/20 03:59 Resp 21 H 10/18/20 03:59 BP 95/64 10/18/20 03:59 Pulse Ox 91 10/18/20 03:59 10/17/20 10/17/20 10/18/20 14:59 22:59 06:59 Intake Total 1680 / 1680 590 / 2270 50 / 2320 Output Total 750 / 750 150 / 900 Balance 1680 / 1680 -160 / 1520 -100 / 1420 Physical Exam Const: OTHER: + conversational dyspnea Extremity: OTHER: edema Urinary Catheter Management^: Francois: Cath Placed During This Visit: yes Reason for Continuing Indwelling Catheter: Other Urinary Catheter Date of Insertion: 10/14/20 Urinary Catheter Time of Insertion: 19:08 Data : 10/18/20 02:48 10/18/20 02:18 Other Labs: Mg 2.0 A&P Additional A&P Information 1. Acute kidney injury, improved with hydration but may now have pulmonary edema 2. Metabolic acidosis resolved, hyponatremia improving 3. Hypokalemia 4. Severe pulmonary hypertension, likely cor pulmonale, + cirrhosis Recommend: discontinue IVF, furosemide 40 mg IV x 1 dose. Replace KCl. Prognosis poor. Patient told me to let me . RN will contact hospitalist to address code status. Attestations Medical Necessity Statement*: critically ill Time Spent in Patient Care: 16 - 35 minutes Coding Level of Care Code Acute Top Taper Machine for Sourav Estrada
--- NOTE | 2020-10-18 06:23 | PC.NURSE ---
Around 0500: Patient O2 saturation levels between 88-90% on 6L per NC. Notified Dr. Javier. Orders received to keep O2 saturation levels at 89% or above. High flow NC ok to apply if patient drops below 89% per Dr. Javier. Around 0620: Patient has IV medications running that are not compatible with scheduled Zosyn. Ok to hold Zosyn per Dr. Javier.
[2020-10-18 06:37] LABS: Glucose Point of Care 136 mg/dL (70-110)
--- NOTE | 2020-10-18 08:00 | PC.NURSE ---
Patient lying in bed with 5L NC in place tele nephrology speaking with patient. Instructions from Dr Chung to stop IV fluids and orders placed for IVP lasix Rt also at bedside changing patient to high flow NC at 10L patients saturations remain low 88-90 patient asymptomatic at this time left room with nephrology cart
[2020-10-18] MEDS: potassium chloride ER 20 mEq Tablet 40 MEQ PO (08:28)
[2020-10-18] MEDS: gabapentin 300 mg Capsule PO (08:28)
[2020-10-18] MEDS: atorvastatin 40 mg Tablet 20 MG PO (08:28)
[2020-10-18] MEDS: ipratropium-albuterol 3 mL Neb INHALATION ×4 (08:44→23:35)
--- NOTE | 2020-10-18 09:25 | PC.NURSE ---
patient requested to be turned in bed and upon turning patient became very hypoxic down to 46% patient remained alert and oriented never loosing consciousness patient was placed back on to back and returned to 70% rapid response called Dr zaragoza at bedside verbal instructions to place order for PICC insertion due to Poor peripheral access ABG obtained Instructions given t o move patient to ICU Bed obtained IN ICU and patient moved to ICU 3 Bed side report given to MUNDO HARRIS
[2020-10-18] MEDS: FUROsemide 10 mg/mL SDV 4mL 40 MG IVP ×2 (09:42→17:49)
[2020-10-18 09:44] LABS: Glucose Point of Care 277 mg/dL (70-110)
[2020-10-18 09:47] LABS: ABG PH Result 7.48 (7.35-7.45); Alveolar-Arterial Oxygen Gradi 79.2 mmHg (5-10); Arterial Blood Gas Hematocrit 49.5 % (42-52); Base Excess ABG -5.7 mmol/L (-2.0-2.0); Blood Gas Allen Test Pos; Blood Gas Operator Identificat glc; Blood Gas Sample Site Radial, left; Blood Gas Sample Type Arterial; Carboxyhemoglobin 0.3 %THgb (0.4-20.1); HCO3 ABG 14.8 mmol/L (22-26); HGB O2 Sat 94.2 % (95-100); Methemoglobin 0.5 % (0.4-1.5); Oxygen Device NRB; Oxygen Saturation ABG 94.9; Potassium Level - ABG 3.1 mmol/L (3.5-5.0); Total Hemoglobin 16.1 g/dL (14-18)
[2020-10-18 09:48] LABS: ABG PCO2 19.7 mmHg (35-45)
[2020-10-18 10:16] LABS: Potassium 2.9 mmol/L (3.5-5.1)
--- NOTE | 2020-10-18 11:10 | PM.PN ---
Subjective Subjective: Interval history: Overnight patient went into tachyarrhythmia with heart rate up to 140s, stat EKG showed A. fib with RVR, he had also started complaining of pleuritic chest pain and hemoptysis. D-dimer was obtained which returned elevated and patient was started on heparin anticoagulation empirically for presumed PE. Had a rapid response this morning when upon being turned in bed his oxygen saturation dropped to 46% and upon turning on his back he returned to 70%. Rapid response was called at the time. Upon lifting her end of the bed and raising supplemental oxygen to 12 L/min, oxygen sats at 92 to 93%. Chest x-ray taken this morning showed blunted costophrenic angles consistent with minimal pleural effusions. Currently mentating well. Received 40 mg of IV Lasix with rapid response. ABG appears c/w respiratory acidosis from hyperventilation Medications: Reviewed: Yes Vitals/I&O/Wt Last Vital Signs Temp 98 F 10/18/20 10:07 Pulse 83 10/18/20 10:07 Resp 18 10/18/20 10:07 BP 96/69 10/18/20 10:07 Pulse Ox 92 10/18/20 10:07 10/17/20 10/18/20 10/18/20 22:59 06:59 14:59 Intake Total 590 / 2270 653 / 2923 1000 / 1000 Output Total 750 / 750 150 / 900 Balance -160 / 1520 503 / 2023 1000 / 1000 Physical Exam Narrative: EXAM NARRATIVE: General: No acute distress, some blood tinge seen around incisors, AO x3,chronically ill appearing HEENT: PERRLA, pupils bilaterally equal and reactive, pallors not present Chest: reduced air entry right lung base, crackles to auscultation B/L CVS: S1-S2 regular, no murmurs, no tachycardia, no gallops, no rubs Abdomen: Soft, nontender, no organomegaly, bowel sounds present Neuro: No focal deficits Extremities: Wounds not opened for exam today, LE pitting edema B/L + Urinary Catheter Management^: Francois: Cath Placed During This Visit: yes Reason for Continuing Indwelling Catheter: Other Urinary Catheter Date of Insertion: 10/14/20 Urinary Catheter Time of Insertion: 19:08 Data : 10/18/20 02:48 10/18/20 09:00 A&P Assessment and plan (1) JACOBY (acute kidney injury): Cr improving to 3.1 today Now with hypokalemia, repleted iv and po Appreciate nephrology recommendations FeNa 0.4, consistent with prerenal JACOBY, cr currently improving, Fluids dicontinued, today with fluid overload, pulmonary edema likely also contributed by A fib with RVR resumed lasix at 40mg IV q24h CT abdomen without hydronephrosis Francois to monitor accurate output Status: Acute (2) Hyperkalemia: resolved Status: Acute (3) Diabetic ulcer of lower leg: Wit B/L LE cellulitis continuing Zosyn , vancomycin day 4 of abx today ABD dressing + lymphedema wraps Status: Acute (4) Acute hyponatremia: improved Status: Acute (5) Pulmonary hypertension: sildenafil no on formulary lasix 40mg IVP resumed Status: Acute (6) Hypoxia: Likely to be a combination of pulmonary edema, cannot exclude PE LE duplex on 10/14 without DVT Status: Acute Additional A&P Information DVT ppx: lovenox Full Code , wants to be intubated , trial of CPR unless brain Dipso: home with HH when ready Attestations Medical Necessity Statement*: needs ongoing admission for iv abx, iv diuresis, close monitoring of resp status, A fib with RVR Coding Level of Care Code Acute Purchasing And Claims Supervisor for g Fwd Diagnoses JACOBY (acute kidney injury) N17.9 Hyperkalemia E87.5 Diabetic ulcer of lower leg E11.622; L97.909 Acute hyponatremia E87.1 Pulmonary hypertension I27.20 Hypoxia R09.02
--- NOTE | 2020-10-18 11:20 | XRR_ITS ---
PROCEDURE INFORMATION: Exam: XR Chest Exam date and time: 10/18/2020 11:22 AM Age: 79 years old Clinical indication: Condition or disease; Other: Pulmonary edema; Cough and shortness of breath; Cough with hemorrhage TECHNIQUE: Imaging protocol: XR of the chest. Views: 1 view. COMPARISON: CR XR chest 1V portable [id number] 10/03/2020 3:39 AM FINDINGS: Lungs: Unremarkable. No consolidation. Pleural spaces: The costophrenic angles are blunted consistent with small effusions. Heart/Mediastinum: The cardiac silhouette is enlarged but unchanged. Bones/joints: Unremarkable. XR/XR chest 1V portable [id number] IMPRESSION: 1. Stable cardiomegaly. 2. Blunted costophrenic angles consistent with minimal pleural effusions.
[2020-10-18 11:30] LABS: Glucose Point of Care 236 mg/dL (70-110)
[2020-10-18 11:33] LABS: Partial Thromboplastin Time > 250.0 SECONDS (23.9-36.7)
[2020-10-18] MEDS: lidocaine 1% 5 ML in potassium chloride premix 100 ML 25 ML IV (11:51)
--- NOTE | 2020-10-18 13:54 | PC.CHAP ---
Pastoral Care Encounter/Spiritual Assessment Type of Contact [] Declined shotgun shell loading machine operator visit [xx] Patient/Family/Request visit [] Outpatient visit [] Follow-up visit [] Physician referral [] Code/Alert [] Routine visit [] Staff referral [] Actively dying [] Patient sleeping [] Family support [] [] Out of room [] Palliative care [] [] Receiving care in room [] Pre-surgical visit [] Trauma [] Long length of stay [xx] ICU visit [] Other: Relational/Emotional Strength [] Patient feels connected with others/family/visitors/staff [] Distress [] Loneliness/isolation [] Abandonment Spirituality of Patient [xx] Person of Gogo [] Attends Pentecostal of their Gogo [xx] Believes in Prayer [xx] Reads Bible or Uatsdin materials [] There are Spiritual issues to be addressed Industrial Ecology Technician Interventions [xx] Prayer [] Active listening [] Non-anxious presence [] Spiritual/emotional support [] Crisis/trauma care [] Spiritual counseling [] Bereavement support [] Provided bereavement packet [] Provided Bible/devotional materials [] Provided toy/stuffed animal, coloring book to patient or family member [] Provided Communion [] Anointing/[place] [] Salvation [xx] Completed spiritual assessment [] Other: Impact on Illness or Injury [] Angry [] Fearful [] Anxious [] Often cries [] Exhaustion [] Unable to work [] Unable to attend jehovah's witness [] Unable to walk/stand [] Unable to read [] Unable to drive [] Unable to eat/drink [] Unable to sleep [] Unable to be with family [] Patient intubated [] Other: Summary Daughter present with patient. Patient unable to talk. Family request to pray for patient so shotgun shell loading machine operator complied according to family request for patient's needs. Industrial Ecology Technician prayed for family as well. There were 4 members present, 3 in waiting room. Staff recommended prayer be kept short but done while they worked on patient. Time spent with patient 2 minutes.
[2020-10-18 15:10] LABS: Partial Thromboplastin Time 50.8 SECONDS (23.9-36.7)
[2020-10-18 15:19] LABS: Vancomycin Trough 16.8 ug/mL (10-15)
--- NOTE | 2020-10-18 15:33 | XRR_ITS ---
PROCEDURE INFORMATION: Exam: XR Chest Exam date and time: 10/18/2020 3:45 PM Age: 79 years old Clinical indication: Device placement; Other: Cvl line TECHNIQUE: Imaging protocol: XR of the chest. Views: 1 view. COMPARISON: CR XR chest 1V portable [id number] 10/18/2020 11:30 AM FINDINGS: Tubes, catheters and devices: Central venous catheter is placed into the mid SVC from right neck approach. Lungs: Decreased lung volumes with hazy bilateral infrahilar airspace opacities which may reflect mild edema or atelectasis changes. Pleural spaces: Costophrenic angles are slightly blunted suggestive of underlying small volume pleural effusions. Negative for pneumothorax. Heart/Mediastinum: Cardiac silhouette is mildly enlarged. Bones/joints: Unremarkable. XR/XR chest 1V portable [id number] IMPRESSION: Central venous catheter is placed in the mid SVC without acute pulmonary complication identified.
--- NOTE | 2020-10-18 15:37 | ANES.PROC ---
Anesthesia Procedures Procedure/Date: 10/18/20 Central Venous Insert: Central Venous Line: RIJ 3-lumen CVL, 20cm Time Out Performed: Yes Consent: requested by attending/covering physician, from patient, risks and benefits reviewed and patient agrees to proceed Central Line: New Anesthesia monitors: pulse oximetry, EKG, BP cuff and oxygen Vein cannulated: right internal jugular Post procedure: Other (CXR pending) Additional Comments: Sterile prep, drape and gloves (hat and mask). Seldinger technique after 3mls 1% lido, sutured in place and sterile dressing. Patient tolerated well. No complications.
[2020-10-18] MEDS: vancomycin 1,500 MG/300 ML PIGGYBACK 200 MG IV (15:44)
--- NOTE | 2020-10-18 16:04 | PC.NURSE ---
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
[2020-10-18] MEDS: piperacillin-tazobactam 3.375 GM in sodium chloride 0.9% (plus) 50 ML IV (17:34)
--- NOTE | 2020-10-18 17:35 | ECG_ITS ---
[facility] Test Date: 2020-10-18 Pat Name: Pantera Henriquez Department: Room: ICU03 Gender: Male Hourly Caregiver: : 1940 Requested By: Awa Mcghee Order Number: [id number] Martinez MD: Nella Thomas M.D. Measurements Intervals [place] Cbc Base Rate: 78 P: 48 [place]: 226 QRS: 152 QRSD: 118 T: -10 QT: 433 QTc: 495 Interpretive Statements SINUS RHYTHM WITH FIRST DEGREE AV BLOCK INCOMPLETE RIGHT BUNDLE BRANCH BLOCK [90+ ms QRS DURATION, TERMINAL R IN V1/V2, 40+ ms S IN I/aVL/V4/V5/V6] ANTEROSEPTAL MYOCARDIAL INFARCTION [40+ ms Q WAVE IN V1-V4], OF INDETERMINATE AGE Compared to ECG 10/18/2020 02:38:16 First degree AV block now present Atrial fibrillation no longer present Myocardial infarct finding still present Electronically Signed On 10-20-2020 12:10:26 CDT by Nella Thomas M.D. [id number]
[2020-10-18 17:58] LABS: Glucose Point of Care 142 mg/dL (70-110)
[2020-10-18 18:37] LABS: Troponin(5th) Baseline 125 ng/L (0-15)
[2020-10-18 18:48] LABS: ABG PCO2 22.5 mmHg (35-45); ABG PH Result 7.48 (7.35-7.45); Alveolar-Arterial Oxygen Gradi 78.8 mmHg (5-10); Arterial Blood Gas Hematocrit 48.9 % (42-52); Base Excess ABG -4.5 mmol/L (-2.0-2.0); Blood Gas Allen Test Pos; Blood Gas Operator Identificat GD; Blood Gas Sample Site Radial, left; Blood Gas Sample Type Arterial; Carboxyhemoglobin 0.6 %THgb (0.4-20.1); HCO3 ABG 16.6 mmol/L (22-26); HGB O2 Sat 95.8 % (95-100); Ionized Calcium Level - ABG 1.1 mmol/L (1.1-1.4); Methemoglobin < 0.0 % (0.4-1.5); Oxygen Device NRB; Oxygen Saturation ABG 95.2; PO2 ABG 74.3 mmHg (80.0-100.0); Potassium Level - ABG 3.6 mmol/L (3.5-5.0); Total Hemoglobin 15.9 g/dL (14-18)
--- NOTE | 2020-10-18 19:35 | ECG_ITS ---
[facility] Test Date: 2020-10-18 Pat Name: Pantera Henriquez Department: Room: ICU03 Gender: Male Bagel Maker: : 1940 Requested By: Awa Mcghee Order Number: [id number] Martinez MD: Nella Thomas M.D. Measurements Intervals [place] Rate: 104 P: 220 [place]: 154 QRS: 154 QRSD: 114 T: -17 QT: 366 QTc: 483 Interpretive Statements SINUS TACHYCARDIA INCOMPLETE RIGHT BUNDLE BRANCH BLOCK [90+ ms QRS DURATION, TERMINAL R IN V1/V2, 40+ ms S IN I/aVL/V4/V5/V6] RIGHT VENTRICULAR HYPERTROPHY [SOME/ALL OF: PROMINENT R IN V1, LATE TRANSITION, RAD, LUCINDA, SSS] ANTEROLATERAL MYOCARDIAL INFARCTION [40+ ms Q WAVE IN I/aVL/V3-V6], OF INDETERMINATE AGE Compared to ECG 10/18/2020 17:58:20 Atrial abnormality now present Right ventricular hypertrophy now present Sinus rhythm no longer present First degree AV block no longer present Myocardial infarct finding still present Electronically Signed On 10-22-2020 17:45:02 CDT by Nella Thomas M.D. [id number]
[2020-10-18 21:06] LABS: Glucose Point of Care 177 mg/dL (70-110)
[2020-10-18 21:12] LABS: Troponin 5 2HR Delta -2.7 ABS# (0-10)
[2020-10-18 21:13] LABS: Troponin 5 2HR 122.3 ng/L (0-15)
[2020-10-18 23:09] LABS: ABG PH Result 7.51 (7.35-7.45); Arterial Blood Gas Hematocrit 49.4 % (42-52); Base Excess ABG -4.8 mmol/L (-2.0-2.0); Blood Gas Operator Identificat HARKR; Blood Gas Sample Site Brachial, left; Blood Gas Sample Type Arterial; HCO3 ABG 15.2 mmol/L (22-26); PO2 ABG 62.8 mmHg (80.0-100.0)
[2020-10-18 23:10] LABS: ABG PCO2 19.1 mmHg (35-45)
--- NOTE | 2020-10-18 23:35 | ECG_ITS ---
[facility] Test Date: 2020-10-18 Pat Name: Pantera Henriquez Department: Room: ICU03 Gender: Male Data Warehouse Developer: : 1940 Requested By: Awa Mcghee Order Number: [id number] Martinez MD: Nella Thomas M.D. Measurements Intervals [place] Rate: 106 P: 227 [place]: 175 QRS: 149 QRSD: 92 T: 15 QT: 335 QTc: 446 Interpretive Statements SINUS TACHYCARDIA INCOMPLETE RIGHT BUNDLE BRANCH BLOCK [90+ ms QRS DURATION, TERMINAL R IN V1/V2, 40+ ms S IN I/aVL/V4/V5/V6] RIGHT VENTRICULAR HYPERTROPHY ANTEROLATERAL MYOCARDIAL INFARCTION,OF INDETERMINATE AGE Compared to ECG 10/18/2020 20:55:12 No significant changes Electronically Signed On 10-22-2020 17:44:53 CDT by Nella Thomas M.D. [id number]
[2020-10-19] VITALS (116 sets, daily range): BP systolic 74–107; BP diastolic 59–81; PULSE 89–142; RESP 13–30; TEMP 36.6; O2SAT 84–96
[2020-10-19 00:53] LABS: Troponin 5 6HR 112.9 ng/L (0-15); Troponin 5 6HR Delta -12.1 ng/L (0-12)
[2020-10-19] MEDS: ipratropium-albuterol 3 mL Neb INHALATION ×5 (02:45→19:32)
[2020-10-19 03:58] LABS: Basophils % 0.4 %; Eosinophils % 0.1 %; Hematocrit 47.4 % (42.0-52.0); Hemoglobin 15.7 g/dL (11.7-16.6); Lymphocytes # 0.9 10^3/uL (0.8-4.8); Lymphocytes % 9.3 %; Mean Corpuscular HGB Conc 33.1 g/dL (30.0-36.0); Mean Corpuscular Hemoglobin 28.9 pg (28.0-34.0); Mean Corpuscular Volume 87.1 fL (80-94); Monocytes % 10.8 %; Neutrophils # 7.25 10^3/uL (1.8-7.7); Neutrophils % 78.3 %; Nucleated Red Blood Cells % 0.4 %; Platelet Count 244 10^3/cmm (130-400); Red Blood Count 5.44 10^6/uL (4.1-5.3); Red Cell Distribution Width 15.5 % (12.1-15.1); White Blood Count 9.3 10^3/uL (4.0-10.0)
[2020-10-19 04:11] LABS: ABG PCO2 20.4 mmHg (35-45); ABG PH Result 7.47 (7.35-7.45); Arterial Blood Gas Hematocrit 50.3 % (42-52); Base Excess ABG -6.1 mmol/L (-2.0-2.0); Blood Gas Allen Test Pos; Blood Gas Operator Identificat HARKR; Blood Gas Sample Site Radial, right; Blood Gas Sample Type Arterial; HCO3 ABG 14.7 mmol/L (22-26); Oxygen Device BIPAP; PO2 ABG 78.5 mmHg (80.0-100.0)
[2020-10-19 04:21] LABS: Alanine Aminotransferase 16 U/L (0-41); Albumin Level 2.6 g/dL (3.5-5.2); Alkaline Phosphatase 272 IU/L (40-130); Anion Gap 24.7 (5-19); Aspartate Amino Transferase 30 U/L (0-40); Blood Urea Nitrogen 78 mg/dL (8-23); Calcium 8.7 mg/dL (8.5-10.5); Carbon Dioxide 16 mmol/L (22-29); Chloride 95 mmol/L (98-107); Globulin 3.8 g/dL (1.3-4.6); Glucose 144 mg/dL (65-115); Osmolality Calculated 300 mOsm/kg (285-295); Potassium 3.7 mmol/L (3.5-5.1); Sodium 132 mmol/L (136-145); Total Bilirubin 1.9 mg/dL (0.15-1.2); Total Protein 6.4 g/dL (6.6-8.7)
[2020-10-19 04:32] LABS: Partial Thromboplastin Time 69.7 SECONDS (23.9-36.7)
[2020-10-19] MEDS: piperacillin-tazobactam 3.375 GM in sodium chloride 0.9% (plus) 50 ML IV (05:17)
[2020-10-19 07:37] LABS: Glucose Point of Care 172 mg/dL (70-110)
[2020-10-19] MEDS: gabapentin 300 mg Capsule PO (09:19)
[2020-10-19] MEDS: lanolin oint 7 gm 1 APPLIC TOPICAL (09:19)
[2020-10-19] MEDS: atorvastatin 40 mg Tablet 20 MG PO (09:19)
[2020-10-19] MEDS: potassium chloride ER 20 mEq Tablet 40 MEQ PO ×2 (09:20→17:43)
--- NOTE | 2020-10-19 10:02 | PC.NURSE ---
heart rate up to 140,s on high flow 02 in use at this time cardizen given
--- NOTE | 2020-10-19 10:22 | PC.SOCIAL ---
IMM Not Updated. Pg. 2 of IMM not updated at this time. Patient not expected to discharge within 48 hours. MUNDO, RN in room with RT Soo at this time.
[2020-10-19] MEDS: FUROsemide 10 mg/mL SDV 4mL 40 MG IVP (10:30)
[2020-10-19] MEDS: amiodarone 200 mg Tablet 400 MG PO (10:30)
--- NOTE | 2020-10-19 11:23 | P.CONIM_ITS ---
Providers/Reason For Consult Consulting Physican/Specialty*: Pulmonary and critical care medicine Reason for Consult*: Acute on chronic hypoxic respiratory failure, decompensated RV failure Attending Physician: Awa Mcghee MD Primary Care Provider: Kimberly Ann DO History of Present Illness History of Present Illness Pantera Henriquez is a 79 year old male who is well-known to me from his previous office visits. The patient has Group 1 pulmonary arterial hypertension with a mean pulmonary artery pressure of 58. His cardiac index on cardiac catheterization on August 21, 2019 was 1 L/min/m?. The patient used to be on sildenafil. He was also supposed to be on endothelin receptor antagonist however he had never gotten to take them because of financial reasons. The last time I had seen the patient was in January 2020. At that time the patient was tolerating his sildenafil 20 mg 3 times a day and Lasix 80 mg daily with significant improvement in bilateral lower extremity edema and functional capacity. I had also treated the patient with metolazone every other day however this was discontinued due to precipitation of gout. It appears that the patient has not taken any of his sildenafil for the past 3 months. Unfortunately, he had also not come negated this to my office. According to the patient, the pharmacy was supposed to communicate with us which I have not received. At baseline, the patient had a WHO/NYHA functional class of 2-3. Recently the patient has been battling with cellulitis. He was admitted to the hospital on October 14 with bilateral lower extremity ulceration, cellulitis, acute kidney injury with a creatinine greater than 4, hyperkalemia and hyponatremia. The patient was treated with antibiotic, IV fluid with subsequent improvement in his creatinine. However, the patient has developed worsening respiratory failure and is currently in ICU with 100% oxygen on high flow nasal cannula. He is also on a heparin drip for suspected PE. He is on amiodarone drip for A. fib with RVR. The patient was seen and examined in the ICU. He appears to be tachypneic and tired. I performed a bedside ultrasound. The patient has significant pressure and volume overload of the RV with shifting of the interventricular septum towards the left ventricle. He has bilateral lower extremity swelling. His was at bedside. She does have dementia. Review of Systems Narrative: Unable to obtain a complete review of system because of the patient's condition. Meds/Allergies Home Medications and Allergies Home Medications Medication Instructions Recorded Confirmed Last Taken Type metformin 1,000 mg tablet,extended 1,000 mg PO BID 06/28/19 10/14/20 10/13/20 History release 24hr simvastatin 20 mg PO DAILY 08/18/19 10/14/20 10/13/20 History buspirone 7.5 mg PO BID 10/14/20 10/14/20 10/13/20 History gabapentin 300 mg PO TID 10/14/20 10/14/20 10/13/20 History metoprolol tartrate 25 mg PO BID 10/14/20 10/14/20 10/13/20 History potassium chloride 20 meq PO DAILY 10/14/20 10/14/20 10/13/20 History tramadol 50 mg PO TID PRN 10/14/20 10/14/20 Unknown History aspirin 325 mg PO DAILY 10/15/20 10/15/20 10/13/20 History furosemide 40 mg PO BID 10/15/20 10/15/20 Unknown History sildenafil (pulm.hypertension) 20 mg PO TID 30 Days #90 tab 10/19/20 Unknown Rx Allergies Allergy/AdvReac Type Severity Reaction Status Date / Time No Known Allergies Allergy Verified 10/14/20 11:10 Current Medications Current Medications Generic Name Dose Route Start Last Admin Trade Name Freq PRN Reason Stop Dose Admin Albuterol/Ipratropium 3 ml 10/17/20 23:42 10/19/20 07:34 Ipratropium-Albuterol 3 Ml Neb INHALATION 3 ml Q4H PRN Administration SHORTNESS OF BREATH Atorvastatin Calcium 20 mg 10/15/20 09:00 10/19/20 09:19 Atorvastatin 40 Mg Tablet PO 20 mg DAILY YAZ Administration Furosemide 40 mg 10/19/20 10:30 10/19/20 10:30 Furosemide 10 Mg/Ml Sdv 4ml IVP 40 mg Q12H YAZ Administration Gabapentin 300 mg 10/16/20 09:00 10/19/20 09:19 Gabapentin 300 Mg Capsule PO 300 mg DAILY YAZ Administration Heparin Sodium (Beef Lung) 0 unit 10/18/20 03:52 10/18/20 05:26 Heparin 5,000 Unit/Ml Inj 1 Ml IV 4,700 unit PRN PRN Administration Heparin weight-base protocol Protocol Heparin Sodium/Sodium Chloride 25,000 unit in 500 mls @ 0 mls/hr 10/18/20 03:52 10/18/20 21:09 Heparin Drip IV 6.52 unit/kg/hr .Q0M YAZ 12 mls/hr Titration Protocol Per Protocol Sodium Chloride 500 mls @ 999 mls/hr 10/18/20 09:30 10/18/20 19:11 Sodium Chloride 0.9% IV Not Given .Q31M YAZ Lanolin 1 applic 10/19/20 09:13 10/19/20 09:19 Lanolin Oint 7 Gm TOPICAL 1 applic PRN PRN Administration DRYNESS Potassium Chloride 40 meq 10/18/20 09:00 10/19/20 09:20 Potassium Chloride Er 20 Meq Tablet PO 10/19/20 18:01 40 meq BID YAZ Administration Tramadol HCl 50 mg 10/14/20 17:57 10/17/20 08:26 Tramadol 50 Mg Tablet PO 50 mg TID PRN Administration Pain PFSH Acute PFSH: Medical History (Updated 10/19/20 @ 11:45 by Lucila Hsu MD) Acute cystitis Acute on chronic diastolic (congestive) heart failure Cor pulmonale (chronic) Diabetes mellitus Diastolic heart failure due to valvular disease Elevated PSA Gouty arthritis of left foot Hyperlipemia Hypertension Leg swelling Pulmonary hypertension Varicose vein of leg Family History Father , 72 Hypertension Chronic kidney disease (CKD) Mother , 81 CAD (coronary artery disease) Hypertension Diabetes Social History Smoking and tobacco status: never smoked Second hand smoke exposure: Yes Alcohol intake: never Lives independently: Yes Household members: spouse Marital status: Current occupational status: retired History of recent travel: No Current gender identity: Male Vitals/I&O/Wt Last Vital Signs Temp 97.6 F 10/18/20 22:15 Pulse 128 H 10/19/20 10:45 Resp 19 H 10/19/20 10:45 BP 94/77 10/19/20 10:45 Pulse Ox 86 L 10/19/20 10:45 10/18/20 10/19/20 10/19/20 22:59 06:59 14:59 Intake Total 922.733 / 2375.733 625 / 3000.733 70 / 70 Output Total 1000 / 1000 650 / 1650 Balance -77.267 / 1375.733 -25 / 1350.733 70 / 70 Weight last 48 hrs Weight 208 lb Physical Exam Narrative: EXAM NARRATIVE: General: Patient is awake alert and oriented, short of breath while resting Neck: Jugular venous distention Respiratory: Auscultation: Clear to auscultation bilaterally, no crackles wheezing or rhonchi Cardiovascular: Tachycardia, irregularly irregular rhythm, variable first sound, pansystolic murmur in the tricuspid area, bilateral significant lower extremity swelling and erythema Abdomen: Soft, nontender, nondistended, positive bowel sound Skin: Significant erythema in bilateral lower extremity, the extremities are wrapped with bandages Neuro: The patient appears to be tired, no gross motor deficit Urinary Catheter Management^: Francois: Cath Placed During This Visit: yes Reason for Continuing Indwelling Catheter: Accurate Measurement of Urinary Output in Critically Ill Patients Urinary Catheter Date of Insertion: 10/14/20 Urinary Catheter Time of Insertion: 19:08 Data Other Data: Attestation for Other Data: I personally reviewed and interpreted the following: Other data: I have reviewed the patient's laboratory, microbiologic and radiologic data. The patient does not have any leukocytosis currently. He has anion gap metabolic acidosis in addition to respiratory alkalosis. A&P Assessment and plan (1) Acute and chronic respiratory failure with hypoxia: The patient has developed acute on chronic hypoxic respiratory failure. This is secondary to acutely decompensated right ventricle. The patient is currently on 100% oxygen on high flow. For the time being, we will continue with the current therapy. The patient would not be a good candidate for noninvasive ventilation or any attempt to intubate him. Given his profound pulmonary hypertension his blood pressure is predominantly maintained by afterload. Any medication that would reduce his afterload is likely to cause acute hemod ynamic collapse and . Status: Acute (2) Pulmonary arterial hypertension: Unfortunately, the patient has not taken his sildenafil 4 months. He is in acute decompensated RV failure with profound pressure and volume overload of the RV. At this point, I am going to start the patient on a Lasix drip. The initial dose is going to be 5 mg/h. Our goal is to have him at least 2 L negative in the next 24 hours. We will obtain BMP, mag, Phos every 6 hours and replete accordingly. We are starting his sildenafil 20 mg twice a day today. We had been trying as an outpatient to get approval for endothelin receptor antagonist however that had not been approved. I will try this again this Wednesday. In addition, I will likely try to get approval for selexipag. His main pulmonary artery pressure was 58 in August 2019 which I assume has worsened significantly at this point. He is NYHA functional class is 4. Status: Acute (3) Cellulitis: The patient is on antibiotic for his cellulitis. This has been optimized to an oral regimen to reduce the IV fluid intake. Status: Acute (4) Acute kidney injury: The acute kidney injury likely has multiple etiologies. Currently, the #1 etiology is nephrosarca. The patient needs diuresis. Even if there is worsening of the creatinine the patient will still require diuresis. This will take a while before the creatinine level stabilizes. There has been improvement in the creatinine since the patient came in. This could be secondary to improving kidney function. There could also be a diluti onal effect. We are going to avoid nephrotoxic medications. Status: Acute (5) Atrial fibrillation: The patient is currently in A. fib and on amiodarone drip. His heart rate is in the 120s. I am hoping the heart rate will come down with diuresis and reduce stretching on the right atrium. The patient is anticoagulated with Lovenox at this point. The patient had a cardiac index of 1 L/min/m? on the cardiac catheterization in August 2019 which is associated with very poor prognosis. I am hoping that the patient will be able to make improvement during this hospitalization. He will likely be a candidate for IV prostanoid therapy if he survives this. Status: Acute Coding Level of Care Code Acute Generation Engineering Technologist for [facility] Sean Diagnoses Acute and chronic respiratory failure with hypoxia J96.21 Pulmonary arterial hypertension I27.21 Cellulitis L03.90 Acute kidney injury N17.9 Atrial fibrillation I48.91
[2020-10-19 11:29] LABS: Glucose Point of Care 143 mg/dL (70-110)
[2020-10-19 11:31] LABS: Partial Thromboplastin Time 61.8 SECONDS (23.9-36.7)
[2020-10-19] MEDS: NON-FORMULARY MEDICATION (Sildenafil (Pulm.Hypertension) 20 mg tablet) 20 EACH PO ×2 (11:44→21:30)
[2020-10-19] MEDS: FUROsemide 100 MG in sodium chloride 0.9% 40 ML IV ×2 (11:59→23:38)
[2020-10-19] MEDS: enoxaparin 30 mg/0.3 mL Syringe SUBCUT (11:59)
--- NOTE | 2020-10-19 12:22 | PC.NURSE ---
up in bed very weak and short of breath with even talking to visitor . lasix gtt started at this time and o2 at high flow 100% small amts of po fluid given at this time
--- NOTE | 2020-10-19 12:37 | PC.CHAP ---
Pastoral Care Encounter/Spiritual Assessment Type of Contact [XX] Declined distribution systems serviceperson visit [] Patient/Family/Request visit [] Outpatient visit [] Follow-up visit [] Physician referral [] Code/Alert [] Routine visit [XX] Staff referral [] Actively dying [] Patient sleeping [] Family support [] [] Out of room [] Palliative care [] [] Receiving care in room [] Pre-surgical visit [] Trauma [] Long length of stay [] ICU visit [] Other: Relational/Emotional Strength [] Patient feels connected with others/family/visitors/staff [] Distress [] Loneliness/isolation [] Abandonment Spirituality of Patient [] Person of Gogo [] Attends Restoration of their Gogo [] Believes in Prayer [] Reads Bible or Worship materials [] There are Spiritual issues to be addressed Service Center Supervisor Interventions [] Prayer [] Active listening [] Non-anxious presence [] Spiritual/emotional support [] Crisis/trauma care [] Spiritual counseling [] Bereavement support [] Provided bereavement packet [] Provided Bible/devotional materials [] Provided toy/stuffed animal, coloring book to patient or family member [] Provided Communion [] Anointing/[place] [] Salvation [] Completed spiritual assessment [] Other: Impact on Illness or Injury [] Angry [] Fearful [] Anxious [] Often cries [] Exhaustion [] Unable to work [] Unable to attend pentecostalism [] Unable to walk/stand [] Unable to read [] Unable to drive [] Unable to eat/drink [] Unable to sleep [] Unable to be with family [] Patient intubated [] Other: Summary: Staff suggested that pt may want a visit, but when distribution systems serviceperson met with pt, he declined visit. Time spent with patient
--- NOTE | 2020-10-19 13:51 | PC.NURSE ---
levophed gtt infusing at this time resting with eyes closed o2 at 90 %
--- NOTE | 2020-10-19 14:48 | PC.NURSE ---
converted to sr at at this time. no change
[2020-10-19] MEDS: enoxaparin 60 mg/0.6 mL Syringe SUBCUT (16:52)
[2020-10-19] MEDS: sodium bicarbonate 650 mg Tablet PO ×2 (16:52→20:57)
--- NOTE | 2020-10-19 16:57 | P.PN_ITS ---
Subjective Subjective: Interval history: Continues to have increasing oxygen requirements, now 100% FiO2 heated high flow. Diuresed approximately 1.6 L since Lasix this morning, states breathing is mildly improved compared to yesterday. Creatinine continues to improve at 2.8, continues to be in A. fib, amiodarone infusion running, heart rate currently ranging 130 to 150 bpm Medications: Reviewed: Yes Vitals/I&O/Wt Last Vital Signs Temp 97.6 F 10/18/20 22:15 Pulse 106 H 10/19/20 15:33 Resp 20 H 10/19/20 15:33 BP 83/68 10/19/20 12:00 Pulse Ox 90 10/19/20 15:33 10/19/20 10/19/20 10/19/20 06:59 14:59 22:59 Intake Total 625 / 3000.733 270 / 270 Output Total 650 / 1650 200 / 200 Balance -25 / 1350.733 70 / 70 Weight last 48 hrs Weight 94.347 kg Physical Exam Narrative: EXAM NARRATIVE: General: No acute distress, AO x3,chronically ill appearing HEENT: PERRLA, pupils bilaterally equal and reactive, pallors not present Chest: reduced air entry right lung base, crackles to auscultation B/L CVS: S1-S2 regular, no murmurs, no tachycardia, no gallops, no rubs Abdomen: Soft, nontender, no organomegaly, bowel sounds present Neuro: No focal deficits Extremities: Improving lower extremity cellulitis, LE pitting edema B/L + Urinary Catheter Management^: Francois: Cath Placed During This Visit: yes Reason for Continuing Indwelling Catheter: Accurate Measurement of Urinary Output in Critically Ill Patients Urinary Catheter Date of Insertion: 10/14/20 Urinary Catheter Time of Insertion: 19:08 Data : 10/19/20 03:34 10/19/20 03:34 Micro: Microbiology 10/14/20 12:52 Blood Culture - Final Blood NO GROWTH AFTER 5 DAYS 10/14/20 11:57 Blood Culture - Final Blood NO GROWTH AFTER 5 DAYS A&P Assessment and plan (1) JACOBY (acute kidney injury): Cr improving to 2.8 today Appreciate nephrology recommendations FeNa 0.4, consistent with prerenal JACOBY, received IV fluids initially during course of admission with improvement in renal function, however now with worsening pulmonary hypertension of diuretics. Lasix resumed on October 18, 2020, currently tolerating. CT abdomen without hydronephrosis Francois to monitor accurate output Status: Acute (2) Hyperkalemia: resolved Status: Acute (3) Diabetic ulcer of lower leg: Wit B/L LE cellulitis Status post 5 days of Zosyn and vancomycin, currently improving To minimize IV fluid load, will switch treatment to oral Cipro and doxycycline and monitor for continued improvement. ABD dressing + lymphedema wraps to continue Status: Acute (4) Acute hyponatremia: improved Status: Acute (5) Pulmonary hypertension: sildenafil not on formulary, therefore patient has not been receiving. Ordered at outpatient pharmacy today and will be delivered for patient's use. Lasix has been resumed yesterday Pulmonary critical care consultation to assist with management of severe pulmonary hypertension and worsening oxygen requirements ABG with respiratory alkalosis Status: Acute (6) Hypoxia: Likely to be a combination of pulmonary edema, pulmonary hypertension, lower suspicion for PE, LE duplex on 10/14 without DVT, discontinue heparin infusion. Started instead on full dose Lovenox 1 mg/kg daily, which is renally dosed for creatinine clearance of 29. Status: Acute (7) Atrial fibrillation: With RVR, Currently on amiodarone infusion; plan to change to amiodarone orally and start cardizem additionally Status: Acute (8) Pulmonary arterial hypertension: Status: Acute Additional A&P Information DVT ppx: lovenox Has expressed wishes today to not be on mechanical ventilation, changed code status to DNR/DNI accordingly. 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
--- NOTE | 2020-10-19 17:10 | PM.PN ---
Subjective Subjective: Interval history: I am seeing him in follow up for his renal failure. He was started on lasix drip. No nausea, vomiting or diarrhea Medications: Reviewed: Yes Vitals/I&O/Wt Last Vital Signs Temp 97.6 F 10/18/20 22:15 Pulse 106 H 10/19/20 15:33 Resp 20 H 10/19/20 15:33 BP 83/68 10/19/20 12:00 Pulse Ox 90 10/19/20 15:33 10/19/20 10/19/20 10/19/20 06:59 14:59 22:59 Intake Total 625 / 3000.733 270 / 270 Output Total 650 / 1650 200 / 200 Balance -25 / 1350.733 70 / 70 Weight last 48 hrs Weight 94.347 kg Physical Exam Const: COMMON NORMALS: patient oriented x3 and alert GENERAL APPEARANCE: cooperative ORIENTATION/CONSCIOUSNESS: Yes awake OTHER: physical exam as per nursing evaluation Resp: AUSCULTATION: crackles Cardio: COMMON NORMALS: S1 normal heart sound present and S2 normal heart sound present RHYTHM: abnormal rhythm HEART SOUNDS: S1 normal heart sound present and S2 normal heart sound present GI: AUSCULTATION: Yes normoactive bowel sounds Extremity: GENERAL: Yes edema Neuro: COMMON NORMALS: patient oriented x3 SENSORIUM/ORIENTATION: Yes alert Skin: COMMON NORMALS: no rashes or lesions noted GENERAL SKIN EXAM: no rashes or lesions noted Urinary Catheter Management^: Francois: Cath Placed During This Visit: yes Reason for Continuing Indwelling Catheter: Accurate Measurement of Urinary Output in Critically Ill Patients Urinary Catheter Date of Insertion: 10/14/20 Urinary Catheter Time of Insertion: 19:08 Data : 10/19/20 03:34 10/19/20 03:34 Micro: Microbiology 10/14/20 12:52 Blood Culture - Final Blood NO GROWTH AFTER 5 DAYS 10/14/20 11:57 Blood Culture - Final Blood NO GROWTH AFTER 5 DAYS A&P Assessment and plan (1) Acute kidney injury: No indication for any dialysis at this time. 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
[2020-10-19] MEDS: doxycycline 100 mg Tablet PO (17:43)
[2020-10-19 18:02] LABS: Blood Urea Nitrogen 76 mg/dL (8-23); Calcium 8.5 mg/dL (8.5-10.5); Carbon Dioxide 15 mmol/L (22-29); Chloride 94 mmol/L (98-107); Glucose 169 mg/dL (65-115); Magnesium 1.8 mg/dL (1.7-2.3); Osmolality Calculated 297 mOsm/kg (285-295); Phosphorus 5.6 mg/dL (2.5-4.5); Sodium 130 mmol/L (136-145)
[2020-10-19 20:40] LABS: Glucose Point of Care 149 mg/dL (70-110)
[2020-10-19] MEDS: metOLazone 5 MG Tablet 10 MG PO (20:57)
[2020-10-19] MEDS: digoxin 250 mcg/ml INJ 2 mL 100 MCG IVP (21:03)
[2020-10-19] MEDS: ciprofloxacin 500 mg Tablet 250 MG PO (21:04)
[2020-10-19] MEDS: TRAMadol 50 mg Tablet PO (21:28)
--- NOTE | 2020-10-19 21:50 | ECG_ITS ---
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 Measurements Intervals [place] Rate: 128 P: 192 OR: 200 QRS: 162 QRSD: 120 T: -24 QT: 334 QTc: 488 Interpretive Statements SINUS TACHYCARDIA RIGHT BUNDLE BRANCH BLOCK [120+ ms QRS DURATION, UPRIGHT V1, 40+ ms S IN I/aVL/V4/V5/V6] LEFT POSTERIOR FASCICULAR BLOCK [QRS AXIS > 109, INFERIOR Q] ANTEROSEPTAL MYOCARDIAL INFARCTION [40+ ms Q WAVE IN V1-V4], OF INDETERMINATE AGE Compared to ECG 10/18/2020 23:45:34 Right bundle-branch block now present Left posterior fascicular block now present Incomplete right bundle-branch block no longer present Atrial abnormality no longer present Right ventricular hypertrophy no longer present Myocardial infarct finding still present Electronically Signed On 10-22-2020 17:43:43 CDT by Nella Thomas M.D. [email or web address]
[2020-10-20] VITALS (98 sets, daily range): BP systolic 77–110; BP diastolic 46–77; PULSE 71–130; RESP 12–26; TEMP 36–36.5; O2SAT 80–99
[2020-10-20 00:54] LABS: Lactate (Lactic Acid level) 2.9 mmol/L (0.5-2.2)
[2020-10-20 00:55] LABS: Anion Gap 23.9 (5-19); Blood Urea Nitrogen 80 mg/dL (8-23); Calcium 8.6 mg/dL (8.5-10.5); Carbon Dioxide 15 mmol/L (22-29); Chloride 96 mmol/L (98-107); Glucose 166 mg/dL (65-115); Osmolality Calculated 300 mOsm/kg (285-295); Potassium 3.9 mmol/L (3.5-5.1); Sodium 131 mmol/L (136-145)
[2020-10-20 04:40] LABS: Basophils % 0.4 %; Eosinophils # 0.1 10^3/uL (0.0-0.8); Eosinophils % 0.9 %; Hematocrit 45.5 % (42.0-52.0); Hemoglobin 15.1 g/dL (11.7-16.6); Lymphocytes # 1.2 10^3/uL (0.8-4.8); Lymphocytes % 10.4 %; Mean Corpuscular HGB Conc 33.2 g/dL (30.0-36.0); Mean Corpuscular Hemoglobin 28.7 pg (28.0-34.0); Mean Corpuscular Volume 86.3 fL (80-94); Mean Platelet Volume 11.6 fL (7.4-10.4); Monocytes # 1.1 10^3/uL (0.2-0.9); Monocytes % 9.9 %; Neutrophils # 8.57 10^3/uL (1.8-7.7); Neutrophils % 77.3 %; Nucleated Red Blood Cells # 0.1 /100WBC; Nucleated Red Blood Cells % 0.5 %; Platelet Count 254 10^3/cmm (130-400); Red Blood Count 5.27 10^6/uL (4.1-5.3); Red Cell Distribution Width 15.5 % (12.1-15.1); White Blood Count 11.1 10^3/uL (4.0-10.0)
[2020-10-20 05:05] LABS: Alanine Aminotransferase 26 U/L (0-41); Albumin Level 2.1 g/dL (3.5-5.2); Alkaline Phosphatase 219 IU/L (40-130); Anion Gap 23.7 (5-19); Aspartate Amino Transferase 59 U/L (0-40); Blood Urea Nitrogen 76 mg/dL (8-23); Calcium 8.5 mg/dL (8.5-10.5); Carbon Dioxide 17 mmol/L (22-29); Chloride 94 mmol/L (98-107); Globulin 3.7 g/dL (1.3-4.6); Glucose 150 mg/dL (65-115); Osmolality Calculated 297 mOsm/kg (285-295); Potassium 3.7 mmol/L (3.5-5.1); Sodium 131 mmol/L (136-145); Total Bilirubin 2.1 mg/dL (0.15-1.2); Total Protein 5.8 g/dL (6.6-8.7)
[2020-10-20 07:31] LABS: Glucose Point of Care 154 mg/dL (70-110)
[2020-10-20] MEDS: ipratropium-albuterol 3 mL Neb INHALATION ×3 (07:40→19:21)
[2020-10-20] MEDS: FUROsemide 100 MG in sodium chloride 0.9% 40 ML IV ×3 (07:43→18:56)
[2020-10-20] MEDS: NON-FORMULARY MEDICATION (Sildenafil (Pulm.Hypertension) 20 mg tablet) 20 EACH PO ×3 (08:12→22:03)
[2020-10-20] MEDS: gabapentin 300 mg Capsule PO (08:13)
[2020-10-20] MEDS: doxycycline 100 mg Tablet PO ×2 (08:13→19:10)
[2020-10-20] MEDS: atorvastatin 40 mg Tablet 20 MG PO (08:13)
[2020-10-20] MEDS: sodium bicarbonate 650 mg Tablet PO ×3 (08:13→22:03)
[2020-10-20] MEDS: ciprofloxacin 500 mg Tablet 250 MG PO ×2 (08:17→22:03)
--- NOTE | 2020-10-20 10:24 | PM.PN ---
Subjective Subjective: Interval history: 02 requirements improving today at 80% fi02 and 55lpm on heated hi flow, HR with A fib 120s, lasix drip at 10mg/hr, levophed at 5 Less tachypneic, less dyspneic today, afebrile, LE wounds significantly improved urine output 2.9L , net + 7L since admission, cr improving at 2.6 Medications: Reviewed: Yes Medication Review Details: on bicarbonate gtt Vitals/I&O/Wt Last Vital Signs Temp 97.7 F 10/20/20 03:15 Pulse 127 H 10/20/20 08:30 Resp 18 10/20/20 08:30 BP 92/69 10/20/20 08:30 Pulse Ox 92 10/20/20 08:30 10/19/20 10/20/20 10/20/20 22:59 06:59 14:59 Intake Total 500 / 770 414.222 / 1184.222 242.477 / 242.477 Output Total 1300 / 1500 1400 / 2900 Balance -800 / -730 -985.778 / -1715.778 242.477 / 242.477 Weight last 48 hrs Weight 96.162 kg Weight 94.347 kg Physical Exam Narrative: EXAM NARRATIVE: General: No acute distress, AO x3,chronically ill appearing HEENT: PERRLA, pupils bilaterally equal and reactive, pallors not present Chest: reduced air entry right lung base, crackles to auscultation B/L CVS: S1-S2 regular, no murmurs, no tachycardia, no gallops, no rubs Abdomen: Soft, nontender, no organomegaly, bowel sounds present Neuro: No focal deficits Extremities: Improving lower extremity cellulitis, approximately 70% improvement over admission LE pitting edema B/L +, however much improved since admis Urinary Catheter Management^: Francois: Cath Placed During This Visit: yes Reason for Continuing Indwelling Catheter: Accurate Measurement of Urinary Output in Critically Ill Patients Urinary Catheter Date of Insertion: 10/14/20 Urinary Catheter Time of Insertion: 19:08 Data : 10/20/20 03:50 10/20/20 03:50 Micro: Microbiology 10/14/20 12:52 Blood Culture - Final Blood NO GROWTH AFTER 5 DAYS 10/14/20 11:57 Blood Culture - Final Blood NO GROWTH AFTER 5 DAYS A&P Assessment and plan (1) Hypoxia: Likely to be a combination of fluid overload , severe pulmonary hypertension, lower suspicion for PE, LE duplex on 10/14 without DVT, discontinued heparin infusion. Started instead on full dose Lovenox 1 mg/kg daily, latter for A fib, which is renally dosed for creatinine clearance of 29. Overall net + 7L since admission, currently diuesring well on lasix drip , continue same for now Status: Acute (2) Pulmonary hypertension: Worsened by fluid overload, needed fluid resuscitation earlier course of admission due to pre renal JACOBY and dehydration. Currently on lasix drip, diuresing well sildenafil resumd at 20mg TID Status: Acute (3) JACOBY (acute kidney injury): Cr improving to 2.6 today Appreciate nephrology recommendations FeNa 0.4, consistent with prerenal JACOBY, received IV fluids initially during course of admission with improvement in renal function, however now with worsening pulmonary hypertension of diuretics. Lasix resumed on October 18, 2020, currently tolerating. CT abdomen without hydronephrosis Francois to monitor accurate output Status: Acute (4) Hyperkalemia: resolved Status: Acute (5) Diabetic ulcer of lower leg: Wit B/L LE cellulitis Initially on abx zosyn and vancomycin between 10/14-10/19, transitioned to po cipro and doxycycline Plan for total 2 weeks of abx until 10/27 wounds significantly improved, ~70% improved over admission ABD dressing + lymphedema wraps to continue Status: Acute (6) Acute hyponatremia: resolved Status: Acute (7) Atrial fibrillation: With RVR, Currently on amiodarone infusion; continue same Currently on levophed as a result of poor cardiac output , maintain MAP > 65 Status: Acute (8) Pulmonary arterial hypertension: Status: Acute Additional A&P Information DVT ppx: lovenox Has expressed wishes today to not be on mechanical ventilation, changed code status to DNR/DNI accordingly. Disposition: dependent on clinical course , TBD , may be a candidate for LTAC if agreeable Attestations Medical Necessity Statement*: ongoing pressor support, amiodarone infsuion for rate control, lasix drip to allow diuresis , optmization fo respiratory status Critical Care Time: The high probability of a clinically significant, sudden or life threatening deterioration of the patient's [cardiac,respiratory,renal] system(s) required my full and direct attention, intervention and personal management. The critical care time is as shown. This time is in addition to time spent performing any reported procedures but includes the following: [x] Data and vital sign review and interpretation [x] Patient assessment, examination and intervention [x] Documentation [x] Medication orders and management Critical Care Time (min): 40 Coding Level of Care Code Acute Rail Equipment Operator for [facility] Fwd Diagnoses Hypoxia R09.02 Pulmonary hypertension I27.20 JACOBY (acute kidney injury) N17.9 Hyperkalemia E87.5 Diabetic ulcer of lower leg E11.622; L97.909 Acute hyponatremia E87.1 Atrial fibrillation I48.91 Pulmonary arterial hypertension I27.21
[2020-10-20 11:36] LABS: Glucose Point of Care 177 mg/dL (70-110)
--- NOTE | 2020-10-20 12:16 | P.PN_ITS ---
Subjective Subjective: Interval history: The patient seems to be doing better today. His oxygen requirement has come down. He had good urine output with the Lasix drip. He was started on sildenafil which he is tolerating well. The patient is able to verbalize better and was having lunch when I went to see him. His creatinine has remained stable so has his electrolytes. Medications: Reviewed: Yes Vitals/I&O/Wt Last Vital Signs Temp 97.7 F 10/20/20 03:15 Pulse 124 H 10/20/20 11:09 Resp 20 H 10/20/20 11:09 BP 92/69 10/20/20 08:30 Pulse Ox 95 10/20/20 11:09 10/19/20 10/20/20 10/20/20 22:59 06:59 14:59 Intake Total 500 / 770 414.222 / 1184.222 242.477 / 242.477 Output Total 1300 / 1500 1400 / 2900 Balance -800 / -730 -985.778 / -1715.778 242.477 / 242.477 Weight last 48 hrs Weight 212 lb Weight 208 lb Physical Exam 2 Narrative: EXAM NARRATIVE: General: Patient is awake alert and oriented, more comfortable today Neck: Jugular venous distention Respiratory: Auscultation: Clear to auscultation bilaterally, no crackles wheezing or rhonchi Cardiovascular: Tachycardia, irregularly irregular rhythm, variable first sound, pansystolic murmur in the tricuspid area, bilateral significant lower extremity swelling and erythema Abdomen: Soft, nontender, nondistended, positive bowel sound Skin: Significant erythema in bilateral lower extremity, the extremities are wrapped with bandages Neuro: The patient is more awake and alert today, no gross motor deficit Urinary Catheter Management^: Francois: Cath Placed During This Visit: yes Reason for Continuing Indwelling Catheter: Accurate Measurement of Urinary Output in Critically Ill Patients Urinary Catheter Date of Insertion: 10/14/20 Urinary Catheter Time of Insertion: 19:08 Data : 10/20/20 03:50 10/20/20 03:50 Micro: Microbiology 10/14/20 12:52 Blood Culture - Final Blood NO GROWTH AFTER 5 DAYS 10/14/20 11:57 Blood Culture - Final Blood NO GROWTH AFTER 5 DAYS Attestation for Other Data: I personally reviewed and interpreted the following: Other data: I have reviewed his laboratory, microbiologic and radiologic data. The creatinine is stable so is his metabolic acidosis. A&P Assessment and plan (1) Acute and chronic respiratory failure with hypoxia: There has been some improvement in the hypoxic respiratory failure. Currently the patient is on 80% oxygen. He looks more comfortable than yesterday and less tachypneic as well. Status: Acute (2) Pulmonary arterial hypertension: We will continue with the Lasix drip and the patient is having good urine output. He has also been started on sildenafil. Tomorrow I am going to start the process to obtain macitentan and selexipag. Status: Acute (3) Cellulitis: The patient is on antibiotic for his cellulitis. This has been optimized to an oral regimen to reduce the IV fluid intake. Status: Acute (4) Acute kidney injury: The acute kidney injury likely has multiple etiologies. Currently, the #1 etiology is nephrosarca. The patient needs diuresis. Even if there is worsening of the creatinine the patient will still require diuresis. This will take a while before the creatinine level stabilizes. There has been improvement in the creatinine since the patient came in. This could be secondary to improving kidney function. There could also be a dilutional effect. We are going to avoid nephrotoxic medications. Status: Acute (5) Atrial fibrillation: The patient is jumping between a amiodarone drip. I am hoping to switch this to oral amiodarone or if the blood pressure permits to a beta-jennifer in the future. I am hoping that the diuresis will help. Overall, the patient has severe pulmonary hypertension with NYHA class IV. His cardiac index was 1 L almost a year ago. He is at high risk for cardiovascular collapse at any point. Status: Acute Attestations Medical Necessity Statement*: Defer to the primary team Coding Level of Care Code Acute Office Machine Service Supervisor for [facility] Sean Diagnoses Acute and chronic respiratory failure with hypoxia J96.21 Pulmonary arterial hypertension I27.21 Cellulitis L03.90 Acute kidney injury N17.9 Atrial fibrillation I48.91
[2020-10-20] MEDS: enoxaparin 100 mg/mL Syringe 90 MG SUBCUT (16:47)
--- NOTE | 2020-10-20 16:54 | PM.PN ---
Subjective Subjective: Interval history: I am seeing him in follow up for his renal failure, no new issues overnight, responding well to lasix drip Medications: Reviewed: Yes Vitals/I&O/Wt Last Vital Signs Temp 97.7 F 10/20/20 03:15 Pulse 117 H 10/20/20 16:00 Resp 12 10/20/20 16:00 BP 89/77 10/20/20 16:00 Pulse Ox 91 10/20/20 16:00 10/20/20 10/20/20 10/20/20 06:59 14:59 22:59 Intake Total 414.222 / 1184.222 442.477 / 442.477 Output Total 1400 / 2900 Balance -985.778 / -1715.778 442.477 / 442.477 Weight last 48 hrs Weight 96.162 kg Weight 94.347 kg Physical Exam Const: COMMON NORMALS: no acute distress and patient oriented x3 GENERAL APPEARANCE: cooperative ORIENTATION/CONSCIOUSNESS: Yes awake Resp: AUSCULTATION: crackles Cardio: COMMON NORMALS: S1 normal heart sound present and S2 normal heart sound present HEART SOUNDS: S1 normal heart sound present and S2 normal heart sound present GI: AUSCULTATION: Yes normoactive bowel sounds Extremity: GENERAL: Yes edema Neuro: COMMON NORMALS: patient oriented x3 Skin: COMMON NORMALS: no rashes or lesions noted GENERAL SKIN EXAM: no rashes or lesions noted Urinary Catheter Management^: Francois: Cath Placed During This Visit: yes Reason for Continuing Indwelling Catheter: Accurate Measurement of Urinary Output in Critically Ill Patients Urinary Catheter Date of Insertion: 10/14/20 Urinary Catheter Time of Insertion: 19:08 Data : 10/20/20 03:50 10/20/20 03:50 Micro: Microbiology 10/14/20 12:52 Blood Culture - Final Blood NO GROWTH AFTER 5 DAYS 10/14/20 11:57 Blood Culture - Final Blood NO GROWTH AFTER 5 DAYS A&P Assessment and plan (1) Acute kidney injury: Kidney function still worse but no indication for any dialysis at this time. Will monitor kidney function closely for any dialysis requirement. Avoid new nephrotoxins Status: Acute (2) CHF (congestive heart failure): Currently on lasix drip Status: Acute (3) Hyponatremia: Monitor sodium level Status: Acute (4) Metabolic acidosis: Continue sodium bicarbonate supplements Status: Acute Attestations Medical Necessity Statement*: JACOBY Coding Level of Care Code Acute Communications Equipment Operator for g Fwd Diagnoses Acute kidney injury N17.9 CHF (congestive heart failure) I50.9 Hyponatremia E87.1 Metabolic acidosis E87.2
[2020-10-20 18:29] LABS: Glucose Point of Care 138 mg/dL (70-110)
[2020-10-20 18:32] LABS: Anion Gap 21.3 (5-19); Blood Urea Nitrogen 80 mg/dL (8-23); Calcium 8.3 mg/dL (8.5-10.5); Carbon Dioxide 20 mmol/L (22-29); Chloride 93 mmol/L (98-107); Glucose 154 mg/dL (65-115); Osmolality Calculated 299 mOsm/kg (285-295); Potassium 3.3 mmol/L (3.5-5.1); Sodium 131 mmol/L (136-145)
[2020-10-20 19:07] LABS: Magnesium 1.9 mg/dL (1.7-2.3); Phosphorus 4.6 mg/dL (2.5-4.5)
[2020-10-20] MEDS: potassium chloride ER 20 mEq Tablet 40 MEQ PO ×2 (19:10→22:03)
[2020-10-21] VITALS (107 sets, daily range): BP systolic 74–120; BP diastolic 51–78; PULSE 67–98; RESP 11–29; TEMP 35.8–36.9; O2SAT 83–100
[2020-10-21] MEDS: ipratropium-albuterol 3 mL Neb INHALATION ×4 (02:36→19:45)
--- NOTE | 2020-10-21 05:00 | USCV_ITS ---
Pantera Henriquez Age: 79 Gender: M : 1940 Exam Date: 10/21/2020 06:19 Ordering Phys: Awa Mcghee MD Technologist: Exam Location: [place] Indication: ENLARGED RT SIDE BP: 94 / 58 HR: 74 Rhythm: Sinus Technical Quality: Adequate MEASUREMENTS (Male / Female) Normal Values 2D ECHO LV Diastolic Diameter PLAX 2.7 cm 4.2 - 5.9 / 3.9 - 5.3 cm LV Systolic Diameter PLAX 1.5 cm IVS Diastolic Thickness 0.9 cm 0.6 - 1.0 / 0.6 - 0.9 cm IVS Systolic Thickness 1.1 cm LVPW Diastolic Thickness 1.1 cm 0.6 - 1.0 / 0.6 - 0.9 cm LVPW Systolic Thickness 1.3 cm LVOT Diameter 2.0 cm LV Ejection Fraction 2D Teich 76.2 % LV Ejection Fraction MOD 2C 61.4 % LV Ejection Fraction 2C AL 65.1 % LA Diameter 4.3 cm LA Width 3.7 cm LA Height 5.4 cm RA Width 6.3 cm RA Height 5.8 cm M-MODE LV Diastolic Diameter MM 3.1 cm 4.2 - 5.9 / 3.9 - 5.3 cm LV Systolic Diameter MM 1.6 cm LV Ejection Fraction MM Teich 80.4 % IVS Diastolic Thickness MM 0.8 cm 0.6 - 1.0 / 0.6 - 0.9 cm IVS Systolic Thickness MM 1.1 cm LVPW Diastolic Thickness MM 1.0 cm 0.6 - 1.0 / 0.6 - 0.9 cm LVPW Systolic Thickness MM 1.5 cm RV Diastolic Diameter MM 4.1 cm Aortic Annulus Diameter 3.5 cm LA Ao Ratio MM 1.3 MV E Point Septal Separation 0.7 cm DOPPLER AV Peak Velocity 122.7 cm/s LVOT Peak Velocity 77.0 cm/s AV Area Cont Eq vti 2.5 cm squared AV Area Cont Eq pk 2.0 cm squared MV Area PHT 5.0 cm squared Mitral E to A Ratio 0.4 MV E' Velocity 21.0 cm/s Mitral E to MV E' Ratio 4.7 Mitral E to LV E' Lateral Ratio 3.5 Mitral E to LV E' Septal Ratio 7.2 TR Peak Velocity 370.7 cm/s TR Peak Gradient 55.0 mmHg TV Peak E Velocity 172.0 cm/s Right Atrial Pressure 15.0 mmHg Pulmonary Artery Systolic Pressu 70.0 mmHg PV Peak Velocity 47.0 cm/s FINDINGS Left Ventricle Normal LV size ejection fraction of 65%. Paradoxical septal motion. Right Ventricle Right ventricular is markedly dilated with a reduced contractility. Free wall thickening is present. D-shaped ventricle. Transverse echodense structures in the right ventricle towards the apex Right Atrium Moderately increased right atrial size. Left Atrium Normal size Mitral Valve Thickened mitral valve. Mild-moderate mitral valve regurgitation. Aortic Valve Minimally thickened aortic valve Tricuspid Valve [id number] tricuspid valve regurgitation. Pulmonic Valve Normal hypertension with estimated pulmonary artery peak systolic pressure of 76 mmHg. This could be an underestimation because of the poor Doppler signals. The mean PA pressure of 48 mmHg Pericardium Dilated inferior vena cava Aorta Normal aortic annulus size. CONCLUSIONS Normal LV size ejection fraction of 65%. Wall motion abnormality as mentioned above Markedly dilated right ventricle with features of pressure overload. Severe pulmonary hypertension with estimated pulmonary artery peak systolic pressure 76 mmHg with a mean pressure of 48 mmHg. Moderately dilated right atrium Mild to moderate mitral and tricuspid regurgitation. There is no pericardial effusion. There are no intracardiac masses. Compared to the study from October 20092019, the estimated PA pressure has decreased from [address] Yareli Benítez MD FAC (Electronically Signed) Final Date: 21 Oct 2020 19:38 S
[2020-10-21 06:46] LABS: Basophils # 0.1 10^3/uL (0.0-0.1); Basophils % 0.4 %; Eosinophils # 0.1 10^3/uL (0.0-0.8); Eosinophils % 0.8 %; Hematocrit 47.4 % (42.0-52.0); Hemoglobin 15.8 g/dL (11.7-16.6); Lymphocytes # 0.9 10^3/uL (0.8-4.8); Lymphocytes % 7.4 %; Mean Corpuscular HGB Conc 33.3 g/dL (30.0-36.0); Mean Corpuscular Hemoglobin 28.7 pg (28.0-34.0); Mean Corpuscular Volume 86.2 fL (80-94); Mean Platelet Volume 11.6 fL (7.4-10.4); Neutrophils # 10.11 10^3/uL (1.8-7.7); Neutrophils % 82.6 %; Nucleated Red Blood Cells % 0.2 %; Platelet Count 223 10^3/cmm (130-400); Red Cell Distribution Width 15.5 % (12.1-15.1); White Blood Count 12.2 10^3/uL (4.0-10.0)
[2020-10-21 07:07] LABS: Alanine Aminotransferase 24 U/L (0-41); Albumin Level 2.5 g/dL (3.5-5.2); Alkaline Phosphatase 222 IU/L (40-130); Anion Gap 20.6 (5-19); Aspartate Amino Transferase 44 U/L (0-40); Blood Urea Nitrogen 72 mg/dL (8-23); Calcium 8.4 mg/dL (8.5-10.5); Carbon Dioxide 21 mmol/L (22-29); Chloride 92 mmol/L (98-107); Globulin 3.4 g/dL (1.3-4.6); Glucose 159 mg/dL (65-115); Osmolality Calculated 295 mOsm/kg (285-295); Potassium 3.6 mmol/L (3.5-5.1); Sodium 130 mmol/L (136-145); Total Bilirubin 2.2 mg/dL (0.15-1.2); Total Protein 5.9 g/dL (6.6-8.7)
[2020-10-21 07:57] LABS: Glucose Point of Care 161 mg/dL (70-110)
[2020-10-21] MEDS: amiodarone 200 mg Tablet 400 MG PO ×2 (08:57→18:11)
[2020-10-21] MEDS: doxycycline 100 mg Tablet PO ×2 (08:57→18:10)
[2020-10-21] MEDS: ciprofloxacin 500 mg Tablet 250 MG PO ×2 (08:57→22:39)
[2020-10-21] MEDS: sodium bicarbonate 650 mg Tablet PO ×2 (08:57→14:53)
[2020-10-21] MEDS: gabapentin 300 mg Capsule PO (08:57)
[2020-10-21] MEDS: atorvastatin 40 mg Tablet 20 MG PO (08:58)
[2020-10-21] MEDS: potassium chloride ER 20 mEq Tablet 60 MEQ PO (08:58)
[2020-10-21] MEDS: NON-FORMULARY MEDICATION (Sildenafil (Pulm.Hypertension) 20 mg tablet) 20 EACH PO ×3 (09:02→22:32)
--- NOTE | 2020-10-21 09:11 | P.PN_ITS ---
Subjective Subjective: Interval history: The patient was seen and examined this morning. He is doing significantly better than how he did 2 days ago. He is more comfortable not short of breath and overall looks better. Currently he is in sinus rhythm with a heart rate in the 70s. Excellent urine output yesterday on a Lasix drip. The BUN and creatinine has remained stable. The acidosis has gotten better. The oxygen requirement has come down. Medications: Reviewed: Yes Vitals/I&O/Wt Last Vital Signs Temp 96.4 F L 10/21/20 04:00 Pulse 77 10/21/20 08:15 Resp 16 10/21/20 08:15 BP 99/75 10/21/20 08:15 Pulse Ox 88 L 10/21/20 08:15 10/20/20 10/21/20 10/21/20 22:59 06:59 14:59 Intake Total 668.69 / 1111.167 454 / 1565.167 Output Total 1900 / 1900 2900 / 4800 Balance -1231.31 / -788.833 -2446 / -3234.833 Weight last 48 hrs Weight 212 lb Physical Exam 2 Narrative: EXAM NARRATIVE: General: Patient is awake alert and oriented, in no distress Neck: Jugular venous distention Respiratory: Auscultation: Clear to auscultation bilaterally, no crackles wheezing or rhonchi Cardiovascular: Tachycardia, irregularly irregular rhythm, variable first sound, pansystolic murmur in the tricuspid area, bilateral significant lower extremity swelling and erythema, better than before Abdomen: Soft, nontender, nondistended, positive bowel sound Skin: Significant erythema in bilateral lower extremity, the extremities are wrapped with bandages Neuro: The patient is awake alert and oriented, no gross motor deficit Urinary Catheter Management^: Francois: Cath Placed During This Visit: yes Reason for Continuing Indwelling Catheter: Accurate Measurement of Urinary Output in Critically Ill Patients Urinary Catheter Date of Insertion: 10/14/20 Urinary Catheter Time of Insertion: 19:08 Data : 10/21/20 06:37 10/21/20 06:37 Attestation for Other Data: I personally reviewed and interpreted the following: Other data: I have reviewed the patient's laboratory, microbiologic and neurologic data. He received potassium replenishment with ongoing diuresis. A&P Assessment and plan (1) Acute and chronic respiratory failure with hypoxia: The patient is improving with resolving right ventricular failure. He had excellent urine output yesterday. Overall the patient is doing significantly better. Currently he is in sinus rhythm with a heart rate in the 70s. Oxygen requirement is coming down. Status: Acute (2) Pulmonary arterial hypertension: We will cut down the Lasix dose to 5 mg/h today. Depending on the urine output I will switch this to IV push tomorrow. Currently the patient is on sildenafil 20 mg 3 times a day. I am going to work on starting him on a second medication. If the macitentan is not approved I will try to get selexipag for him. Interestingly, the pulse pressure has increased which is suggestive of increasing stroke volume. Status: Acute (3) Cellulitis: The patient is on oral antibiotic. We will get a midline catheter in and take the central line out. Status: Acute (4) Acute kidney injury: The kidney function is stable with diuresis. The patient will likely require another 5 L of diuresis over the next couple of days. Status: Acute (5) Atrial fibrillation: The patient is currently sinus rhythm. This is the best he has been since he presented to the hospital. I am going to start the patient on oral amiodarone and discontinue the IV drip. The patient has so far received about 3 g of amiodarone. We will continue with 400 twice a day for a week and then drop it down to 200 twice a day. All of this can be done as outpatient. The patient is on renally adjusted Lovenox for the atrial fibrillation. Status: Acute Attestations Medical Necessity Statement*: The patient has severe pulmonary hypertension with decompensated heart failure. Currently the patient is slowly improving with ongoing diuresis and pulmonary vasodilator therapy. The patient likely to need in the hospital for more than 48 hours for optimization of therapy. Coding Level of Care Code Acute Home Service Consultant for [facility] Diagnoses Acute and chronic respiratory failure with hypoxia J96.21 Pulmonary arterial hypertension I27.21 Cellulitis L03.90 Acute kidney injury N17.9 Atrial fibrillation I48.91
[2020-10-21] MEDS: FUROsemide 100 MG in sodium chloride 0.9% 40 ML IV (10:00)
--- NOTE | 2020-10-21 10:30 | PC.NURSE ---
Dr. Hsu gave verbal order to stop amio drip before giving the oral dose and titrate lasix drip from 10 to 5. Lasix drip still runing and will scan a new bag when needed.
[2020-10-21 11:30] LABS: Glucose Point of Care 214 mg/dL (70-110)
--- NOTE | 2020-10-21 12:22 | P.PN_ITS ---
Subjective Subjective: Interval history: Patient was seen and examined this morning, says he is feeling better, shortness of breath has improved. Amiodarone drip was stopped, was switched to amiodarone p.o.continues to remain in sinus with well- controlled heart rate, good urine output on Lasix drip. Levophed requirement is going down, FiO2 requirement is also going down. Medications: Reviewed: Yes Vitals/I&O/Wt Last Vital Signs Temp 96.4 F L 10/21/20 04:00 Pulse 78 10/21/20 10:22 Resp 16 10/21/20 10:22 BP 99/75 10/21/20 08:15 Pulse Ox 98 10/21/20 10:22 10/20/20 10/21/20 10/21/20 22:59 06:59 14:59 Intake Total 668.69 / 1111.167 454 / 1565.167 360 / 360 Output Total 1900 / 1900 2900 / 4800 Balance -1231.31 / -788.833 -2446 / -3234.833 360 / 360 Weight last 48 hrs Weight 96.162 kg Physical Exam Const: COMMON NORMALS: patient oriented x3 HENMT: COMMON NORMALS: normocephalic and atraumatic HEAD & SCALP: normocephalic and atraumatic Resp: COMMON NORMALS: clear to auscultation bilaterally AUSCULTATION: clear to auscultation bilaterally Cardio: COMMON NORMALS: regular rate, regular rhythm, S1 normal heart sound present, S2 normal heart sound present, No gallops present (Cardio), No rub (Cardio) and Peripheral pulses 2+ throughout RATE: regular rate RHYTHM: regular rhythm HEART SOUNDS: S1 normal heart sound present and S2 normal heart sound present PERIPHERAL PULSES: Peripheral pulses 2+ throughout OTHER: PSM in tricuspid area GI: COMMON NORMALS: Normal to inspection, nondistended, normoactive bowel sounds present, Soft to palpation, non-tender, No hepatosplenomegaly present and no masses AUSCULTATION: Yes normoactive bowel sounds PALPATION: Yes Soft to palpation and Yes No hepatosplenomegaly present RECTAL EXAM: Yes deferred Extremity: NARRATIVE EXTREMITY EXAM: Lymphedema wraps present. Neuro: COMMON NORMALS: patient oriented x3 Urinary Catheter Management^: Francois: Cath Placed During This Visit: yes Reason for Continuing Indwelling Catheter: Accurate Measurement of Urinary Output in Critically Ill Patients Urinary Catheter Date of Insertion: 10/14/20 Urinary Catheter Time of Insertion: 19:08 Data : 10/21/20 06:37 10/21/20 06:37 A&P Assessment and plan (1) Hypoxia: Likely to be a combination of fluid overload , severe pulmonary hypertension, lower suspicion for PE, LE duplex on 10/14 without DVT, discontinued heparin infusion. Started instead on full dose Lovenox 1 mg/kg daily, latter for A fib, which is renally dosed for creatinine clearance of 29. Overall net + 7L since admission, currently diuesring well on lasix drip , continue same for now Status: Acute (2) Pulmonary hypertension: Worsened by fluid overload, needed fluid resuscitation earlier course of admission due to pre renal JACOBY and dehydration. Currently on lasix drip, diuresing well sildenafil resumd at 20mg TID Status: Acute (3) JACOBY (acute kidney injury): Cr improving to 2.6 today Appreciate nephrology recommendations FeNa 0.4, consistent with prerenal JACOBY, received IV fluids initially during course of admission with improvement in renal function, however now with w orsening pulmonary hypertension of diuretics. Lasix resumed on October 18, 2020, currently tolerating. CT abdomen without hydronephrosis Francois to monitor accurate output Status: Acute (4) Hyperkalemia: resolved Status: Acute (5) Diabetic ulcer of lower leg: Wit B/L LE cellulitis Initially on abx zosyn and vancomycin between 10/14-10/19, transitioned to po cipro and doxycycline Plan for total 2 weeks of abx until 10/27 wounds significantly improved, ~70% improved over admission ABD dressing + lymphedema wraps to continue Status: Acute (6) Acute hyponatremia: resolved Status: Acute (7) Atrial fibrillation: With RVR, was on amiodarone infusion; Switched to p.o. amiodarone 400 twice daily on 10/21 Currently on levophed as a result of poor cardiac output , maintain MAP > 65 Status: Acute (8) Pulmonary arterial hypertension: Currently on sildenafil 20 mg po TID Pulmonary is planning to start the patient on second medication macitentan. Status: Acute (9) Acute on chronic diastolic (congestive) heart failure: Status: Acute (10) Cor pulmonale (chronic): Status: Acute Additional A&P Information DVT ppx: gin Has expressed wishes today to not be on mechanical ventilation, changed code sta tus to DNR/DNI accordingly. Disposition: dependent on clinical course , TBD , may be a candidate for LTAC if agreeable Attestations Medical Necessity Statement*: Patient needs to be in hospital for management of decompensated heart failure with preserved ejection fraction. Coding Level of Care Code Acute Brim Pouncer for g Fwd Diagnoses Hypoxia R09.02 Pulmonary hypertension I27.20 JACOBY (acute kidney injury) N17.9 Hyperkalemia E87.5 Diabetic ulcer of lower leg E11.622; L97.909 Acute hyponatremia E87.1 Atrial fibrillation I48.91 Pulmonary arterial hypertension I27.21 Acute on chronic diastolic (congestive) heart failure I50.33 Cor pulmonale (chronic) I27.81
[2020-10-21] MEDS: enoxaparin 100 mg/mL Syringe 90 MG SUBCUT ×2 (14:53→22:31)
--- NOTE | 2020-10-21 15:45 | PC.SOCIAL ---
*IMM UPDATE* Gave patient IMM update, provided him copy of page 2. Verbalized understanding. 10/21/20 @ 1019 Initialed, dated, timed and placed in chart.
--- NOTE | 2020-10-21 16:31 | PM.PN ---
Subjective Subjective: Interval history: feeling better Medications: Medication Review Details: lasix gtt at 10 mg/hr Vitals/I&O/Wt Last Vital Signs Temp 96.4 F L 10/21/20 04:00 Pulse 77 10/21/20 14:21 Resp 16 10/21/20 14:21 BP 99/73 10/21/20 12:45 Pulse Ox 94 10/21/20 14:21 10/21/20 10/21/20 10/21/20 06:59 14:59 22:59 Intake Total 454 / 1565.167 360 / 360 Output Total 2900 / 4800 Balance -2446 / -3234.833 360 / 360 Weight last 48 hrs Weight 96.162 kg Physical Exam Const: COMMON NORMALS: no acute distress GENERAL APPEARANCE: cooperative Extremity: GENERAL: Yes edema Urinary Catheter Management^: Francois: Cath Placed During This Visit: yes Reason for Continuing Indwelling Catheter: Accurate Measurement of Urinary Output in Critically Ill Patients Urinary Catheter Date of Insertion: 10/14/20 Urinary Catheter Time of Insertion: 19:08 Data : 10/21/20 06:37 10/21/20 06:37 A&P Additional A&P Information 1. Volume overload, diuresing well on low dose lasix gtt 2. Acute kidney injury, stable 3. Hypervolemic hyponatremia stable 4. Hypokalemia, continue to replace KCL po, consider addition of spironolactone 5. Severe pulmonary hypertension, likely cor pulmonale, + cirrhosis Recommend: can discontinue lasix gtt, change to intermittent furosemide 60 mg IV Q12h. Replace KCl oral. Prognosis poor. Attestations Medical Necessity Statement*: per primary service Time Spent in Patient Care: 16 - 35 minutes Coding Level of Care Code Acute Apprenticeship Consultant for Sourav Estrada
[2020-10-21 19:17] LABS: Blood Urea Nitrogen 71 mg/dL (8-23); Calcium 8.4 mg/dL (8.5-10.5); Carbon Dioxide 19 mmol/L (22-29); Chloride 91 mmol/L (98-107); Glucose 165 mg/dL (65-115); Osmolality Calculated 291 mOsm/kg (285-295); Sodium 128 mmol/L (136-145)
[2020-10-21 19:20] LABS: Anion Gap 22.6 (5-19); Potassium 4.6 mmol/L (3.5-5.1)
[2020-10-21 21:32] LABS: Glucose Point of Care 179 mg/dL (70-110)
--- NOTE | 2020-10-21 21:40 | PC.NURSE ---
Talked to Dr. Hsu at 2030 and received a one time order to administer sodium chloride 3 gm tablet.
[2020-10-21] MEDS: sodium chloride 1 gm Tablet 3 GM PO (22:31)
[2020-10-22] VITALS (101 sets, daily range): BP systolic 76–110; BP diastolic 51–75; PULSE 59–127; RESP 10–23; TEMP 35.9–36.4; O2SAT 82–98; BMI 26.6
[2020-10-22] MEDS: TRAMadol 50 mg Tablet PO (01:07)
--- NOTE | 2020-10-22 06:46 | PC.NURSE ---
Patient had an uneventful night. This nurse performed full bed bath, linen change, and catheter care. This nurse also re-dressed the right neck IV site with a central line dressing change kit. Other than pain in the bilateral lower legs and heels patient has no complaints.
[2020-10-22 06:53] LABS: Anion Gap 17.6 (5-19); Blood Urea Nitrogen 70 mg/dL (8-23); Calcium 8.5 mg/dL (8.5-10.5); Carbon Dioxide 26 mmol/L (22-29); Chloride 91 mmol/L (98-107); Glucose 150 mg/dL (65-115); Osmolality Calculated 295 mOsm/kg (285-295); Potassium 3.6 mmol/L (3.5-5.1); Sodium 131 mmol/L (136-145)
[2020-10-22] MEDS: ipratropium-albuterol 3 mL Neb INHALATION ×2 (07:37→19:28)
--- NOTE | 2020-10-22 07:50 | PC.RESP ---
charting checked by Soo Antonio, FORENSICS TEAM DIRECTOR
[2020-10-22] MEDS: atorvastatin 40 mg Tablet 20 MG PO (08:15)
[2020-10-22] MEDS: sodium bicarbonate 650 mg Tablet PO (08:16)
[2020-10-22] MEDS: amiodarone 200 mg Tablet 400 MG PO ×2 (08:16→18:23)
[2020-10-22] MEDS: ciprofloxacin 500 mg Tablet 250 MG PO ×2 (08:16→20:53)
[2020-10-22] MEDS: gabapentin 300 mg Capsule PO (08:17)
[2020-10-22] MEDS: doxycycline 100 mg Tablet PO ×2 (08:17→18:23)
[2020-10-22] MEDS: NON-FORMULARY MEDICATION (Sildenafil (Pulm.Hypertension) 20 mg tablet) 20 EACH PO ×3 (08:17→20:53)
--- NOTE | 2020-10-22 08:30 | PC.NURSE ---
Lasix shut off this AM and ivp push given.
--- NOTE | 2020-10-22 09:06 | XRR_ITS ---
PROCEDURE INFORMATION: Exam: XR Chest Exam date and time: 10/22/2020 9:15 AM Age: 79 years old Clinical indication: Device placement; Picc TECHNIQUE: Imaging protocol: XR of the chest. Views: 1 view. COMPARISON: CR XR chest 1V portable [id number] 10/18/2020 3:44 PM FINDINGS: Tubes, catheters and devices: Right sided PICC is in satisfactory position, with distal tip at the SVC/RA junction. Right IJ approach central line has been removed. Lungs: Bibasilar atelectasis. No focal consolidation. Pleural spaces: Unremarkable. No pleural effusion. No pneumothorax. Heart/Mediastinum: Stable cardiomediastinal silhouette. Bones/joints: Unremarkable. XR/XR chest 1V portable [id number] IMPRESSION: 1. Right PICC in satisfactory position. 2. Bibasilar atelectasis. Pneumonia should be excluded clinically.
[2020-10-22] MEDS: enoxaparin 100 mg/mL Syringe 90 MG SUBCUT (10:08)
[2020-10-22] MEDS: FUROsemide 10 mg/mL SDV 4mL 40 MG IVP ×2 (10:08→18:24)
--- NOTE | 2020-10-22 12:09 | P.PN_ITS ---
Subjective Subjective: Interval history: The patient was seen and examined this morning. He is doing remarkably well. He is comfortable resting in bed. The blood pressure has improved. Patient is still requiring small dose of Levophed which are hoping to take out. Excellent urine output yesterday with 5 mg an hour Lasix drip. His IV Lasix drip has been switched to 40 mg IV twice daily. The subcu Lovenox has also been switched to Eliquis 5 mg twice a day. This will start at 9 PM tonight. His creatinine has remained stable. The BUN is coming down. Before getting sick this time, the patient had a normal BUN and creatinine level. His electrolytes are stable. Medications: Reviewed: Yes Vitals/I&O/Wt Last Vital Signs Temp 97.5 F L 10/22/20 04:03 Pulse 73 10/22/20 07:46 Resp 17 10/22/20 07:43 BP 100/75 10/22/20 05:00 Pulse Ox 93 10/22/20 07:43 10/21/20 10/22/20 10/22/20 22:59 06:59 14:59 Intake Total 121.335 / 785.335 200 / 985.335 360 / 360 Output Total 1300 / 1300 2350 / 3650 550 / 550 Balance -1178.665 / -514.665 -2150 / -2664.665 -190 / -190 Weight last 48 hrs Weight 202 lb 7 oz Physical Exam Narrative: EXAM NARRATIVE: General: Patient is awake alert and oriented, in no distress Neck: Jugular venous distention Respiratory: Auscultation: Clear to auscultation bilaterally, no crackles wheezing or rhonchi Cardiovascular: Tachycardia, irregularly irregular rhythm, variable first sound, pansystolic murmur in the tricuspid area, bilateral lower extremity swelling and erythema, significantly improved Abdomen: Soft, nontender, nondistended, positive bowel sound Skin: Significant erythema in bilateral lower extremity, the extremities are wrapped with bandages Neuro: The patient is awake alert and oriented, no gross motor deficit Urinary Catheter Management^: Francois: Cath Placed During This Visit: yes Reason for Continuing Indwelling Catheter: Accurate Measurement of Urinary Ou tput in Critically Ill Patients Urinary Catheter Date of Insertion: 10/14/20 Urinary Catheter Time of Insertion: 19:08 Data : 10/21/20 06:37 10/22/20 06:29 Attestation for Other Data: I personally reviewed and interpreted the following: Other data: I have reviewed his laboratory, microbiologic and radiologic data. A&P Assessment and plan (1) Acute and chronic respiratory failure with hypoxia: The patient is improving with resolving right ventricular failure. Excellent urine output yesterday even with 5 mg/h Lasix drip. He was more than 2-1/2 L negative. Now the patient is on Lasix 40 mg IV twice daily. Am hoping that tomorrow I will be able to put him on oral Lasix with sp ironolactone as well. Now that the creatinine is coming down and renal function is improving, we should be able to use spironolactone without warning for hyperkalemia. Status: Acute (2) Pulmonary arterial hypertension: The patient is receiving sildenafil 3 times a day. We are in the process of obtaining macitentan or selexipag approved for him as well. Status: Acute (3) Cellulitis: The patient is on oral antibiotic. The central line was taken out today. The patient has a midline. Status: Acute (4) Acute kidney injury: Kidney function is improving. The patient received 1 dose of sodium chloride tablet for developing hyponatremia in the setting of diuresis. That seem to have helped with the mild hyponatremia. His potassium level is stable. The patient is on bicarb supplement. His bicarbonate level is 26. Status: Acute (5) Atrial fibrillation: The patient is currently in sinus rhythm. He is on amiodarone for 100 mg twice a day. I am starting him on Eliquis today. Status: Acute Attestations Medical Necessity Statement*: Will defer to the primary team Coding Level of Care Code Acute Surg Physician Asst for [facility] Fwd Diagnoses Acute and chronic respiratory failure with hypoxia J96.21 Pulmonary arterial hypertension I27.21 Cellulitis L03.90 Acute kidney injury N17.9 Atrial fibrillation I48.91
--- NOTE | 2020-10-22 12:11 | PM.PN ---
Subjective Subjective: Interval history: Patient is slowly improving, shortness of breath has improved, supplemental oxygen requirement is coming down, continues to make good urine output with IV Lasix, Lasix drip has been, stopped he has been switched to IV Lasix 40 mg twice daily. Medications: Reviewed: Yes Vitals/I&O/Wt Last Vital Signs Temp 96.9 F L 10/22/20 08:00 Pulse 92 10/22/20 12:00 Resp 15 10/22/20 11:45 BP 89/55 10/22/20 12:00 Pulse Ox 95 10/22/20 12:00 10/21/20 10/22/20 10/22/20 22:59 06:59 14:59 Intake Total 121.335 / 785.335 200 / 985.335 360 / 360 Output Total 1300 / 1300 2350 / 3650 550 / 550 Balance -1178.665 / -514.665 -2150 / -2664.665 -190 / -190 Weight last 48 hrs Weight 91.824 kg Physical Exam Const: COMMON NORMALS: patient oriented x3 HENMT: COMMON NORMALS: normocephalic and atraumatic HEAD & SCALP: normocephalic and atraumatic Resp: COMMON NORMALS: clear to auscultation bilaterally AUSCULTATION: clear to auscultation bilaterally Cardio: COMMON NORMALS: regular rate, regular rhythm, S1 normal heart sound present, S2 normal heart sound present, No gallops present (Cardio), No rub (Cardio) and Peripheral pulses 2+ throughout RATE: regular rate RHYTHM: regular rhythm HEART SOUNDS: S1 normal heart sound present and S2 normal heart sound present PERIPHERAL PULSES: Peripheral pulses 2+ throughout OTHER: PSM in tricuspid area GI: COMMON NORMALS: Normal to inspection, nondistended, normoactive bowel sounds present, Soft to palpation, non-tender, No hepatosplenomegaly present and no masses AUSCULTATION: Yes normoactive bowel sounds PALPATION: Yes Soft to palpation and Yes No hepatosplenomegaly present RECTAL EXAM: Yes deferred Extremity: NARRATIVE EXTREMITY EXAM: Lymphedema wraps present. Lower extremity wound is improving. Neuro: COMMON NORMALS: patient oriented x3 Urinary Catheter Management^: Francois: Cath Placed During This Visit: yes Reason for Continuing Indwelling Catheter: Accurate Measurement of Urinary Output in Critically Ill Patients Urinary Catheter Date of Insertion: 10/14/20 Urinary Catheter Time of Insertion: 19:08 Data : 10/22/20 13:45 10/22/20 18:00 A&P Assessment and plan (1) Hypoxia: Likely to be a combination of fluid overload , severe pulmonary hypertension, lower suspicion for PE, LE duplex on 10/14 without DVT, discontinued heparin infusion. Started instead on full dose Lovenox 1 mg/kg daily, latter for A fib, which is renally dosed for creatinine clearance of 29. Overall net + 1.3 Ls since admission, currently diuesring well on lasix drip , continue same for now Status: Acute (2) Pulmonary hypertension: Worsened by fluid overload, needed fluid resuscitation earlier course of admission due to pre renal JACOBY and dehydration. Currently on lasix drip, diuresing well sildenafil resumd at 20mg TID Status: Acute (3) JACOBY (acute kidney injury): Cr improving to 2.6 today Appreciate nephrology recommendations FeNa 0.4, consistent with prerenal JACOBY, received IV fluids initially during course of admission with improvement in renal function, however now with worsening pulmonary hypertension of diuretics. Lasix resumed on October 18, 2020, currently tolerating. CT abdomen without hydronephrosis Francois to monitor accurate output Status: Acute (4) Hyperkalemia: resolved Status: Acute (5) Diabetic ulcer of lower leg: Wit B/L LE cellulitis Initially on abx zosyn and vancomycin between 10/14-10/19, transitioned to po cipro and doxycycline Plan for total 2 weeks of abx until 10/27 wounds significantly improved, ~70% improved over admission ABD dressing + lymphedema wraps to continue Status: Acute (6) Acute hyponatremia: resolved Status: Acute (7) Atrial fibrillation: With RVR, was on amiodarone infusion; Switched to p.o. amiodarone 400 twice daily on 10/21 Currently on levophed as a result of poor cardiac output , maintain MAP > 65 Status: Acute (8) Pulmonary arterial hypertension: Currently on sildenafil 20 mg po TID Pulmonary is planning to start the patient on second medication macitentan. Status: Acute (9) Acute on chronic diastolic (congestive) heart failure: Status: Acute (10) Cor pulmonale (chronic): Status: Acute Additional A&P Information DVT ppx: lovenox Has expressed wishes today to not be on mechanical ventilation, changed code status to DNR/DNI accordingly. 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
--- NOTE | 2020-10-22 12:32 | PM.PN ---
Subjective Subjective: Interval history: Feels good today. His legs are chronically sore but no new complaints otherwise. Breathing comfortably. UO noted to be 1300mL. No uremic Sx. Lasix infusion switched to intermittent dosing Medications: Reviewed: Yes Vitals/I&O/Wt Last Vital Signs Temp 96.9 F L 10/22/20 08:00 Pulse 92 10/22/20 12:00 Resp 15 10/22/20 11:45 BP 89/55 10/22/20 12:00 Pulse Ox 95 10/22/20 12:00 10/21/20 10/22/20 10/22/20 22:59 06:59 14:59 Intake Total 121.335 / 785.335 200 / 985.335 480 / 480 Output Total 1300 / 1300 2350 / 3650 550 / 550 Balance -1178.665 / -514.665 -2150 / -2664.665 -70 / -70 Weight last 48 hrs Weight 91.824 kg Physical Exam Narrative: EXAM NARRATIVE: Constitutional: Awake, comfortable HEENT: Wet mucosa, no jvp, non icteric Lungs: Bilaterally clear without discernible wheeze, rales in all lung zones CVS: S1 S2, no murmurs Abdo: Soft, BS ok Ext 4: 2-3+ edema, erythema, peripheral perfusion with no cyanosis Neurological: Grossly non-focal Urinary Catheter Management^: Francois: Cath Placed During This Visit: yes Reason for Continuing Indwelling Catheter: Accurate Measurement of Urinary Output in Critically Ill Patients Urinary Catheter Date of Insertion: 10/14/20 Urinary Catheter Time of Insertion: 19:08 Data : 10/21/20 06:37 10/22/20 06:29 A&P Additional A&P Information 1. Acute renal failure Renal function remains stable Strict ins and outs Avoid usual nephrotoxic agents Dose medications for GFR less than 15, i.e. drop gabapentin dosing to 300 once daily. 2. Chemistry Other chemistry looks to be mildly aberrant and noncritical including hyponatremia, of note corrected calcium was within normal range. DC oral bicarb. 3. 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 Currently on combination Cipr and Doxycycline Thank you for consultation, as always it is a pleasure for our team to follow these cases with you. John Chambers MD Nephrology [phone] Patient seen and examined via telemedicine, with the assistance of the bedside RN > 25 min spent in evaluation and mgmt of patient Attestations Medical Necessity Statement*: eval for JACOBY Coding Level of Care Code Acute Executive Sales Assistant for Sourav Estrada
[2020-10-22 14:06] LABS: Basophils # 0.1 10^3/uL (0.0-0.1); Basophils % 0.4 %; Eosinophils # 0.1 10^3/uL (0.0-0.8); Eosinophils % 0.5 %; Hemoglobin 14.8 g/dL (11.7-16.6); Lymphocytes # 0.7 10^3/uL (0.8-4.8); Lymphocytes % 6.4 %; Mean Corpuscular HGB Conc 32.2 g/dL (30.0-36.0); Mean Corpuscular Hemoglobin 28.6 pg (28.0-34.0); Mean Platelet Volume 12.1 fL (7.4-10.4); Monocytes # 0.8 10^3/uL (0.2-0.9); Monocytes % 7.3 %; Neutrophils # 9.76 10^3/uL (1.8-7.7); Neutrophils % 84.5 %; Nucleated Red Blood Cells % 0 %; Platelet Count 191 10^3/cmm (130-400); Red Blood Count 5.17 10^6/uL (4.1-5.3); Red Cell Distribution Width 15.6 % (12.1-15.1); White Blood Count 11.6 10^3/uL (4.0-10.0)
--- NOTE | 2020-10-22 14:13 | PC.RESP ---
charting checked by Soo Antonio, FITTER PLACER
--- NOTE | 2020-10-22 14:20 | PC.NURSE ---
This nurse called wound care clinic where patient attends and this nurse was told that dressings were changed daily. Dr. Alva aware and wanted dressings to be changed daily. Patient tolerated well. Serosanguineous drainage was noted to dressings.
[2020-10-22 18:50] LABS: Blood Urea Nitrogen 68 mg/dL (8-23); Calcium 8.3 mg/dL (8.5-10.5); Carbon Dioxide 25 mmol/L (22-29); Chloride 91 mmol/L (98-107); Glucose 151 mg/dL (65-115); Osmolality Calculated 295 mOsm/kg (285-295); Sodium 131 mmol/L (136-145)
[2020-10-22 19:07] LABS: Anion Gap 18.5 (5-19); Potassium 3.5 mmol/L (3.5-5.1)
[2020-10-22] MEDS: apixaban 5 mg Tablet PO (20:53)
[2020-10-22] MEDS: potassium chloride ER 20 mEq Tablet 40 MEQ PO (20:53)
[2020-10-23] VITALS (108 sets, daily range): BP systolic 72–98; BP diastolic 47–66; PULSE 66–101; RESP 13–23; TEMP 35.8–36.7; O2SAT 82–95; BMI 28.0
[2020-10-23] MEDS: ipratropium-albuterol 3 mL Neb INHALATION ×4 (02:26→19:42)
[2020-10-23 05:37] LABS: Basophils % 0.2 %; Eosinophils # 0.1 10^3/uL (0.0-0.8); Eosinophils % 0.7 %; Hematocrit 45.5 % (42.0-52.0); Hemoglobin 14.7 g/dL (11.7-16.6); Lymphocytes # 0.8 10^3/uL (0.8-4.8); Lymphocytes % 7.7 %; Mean Corpuscular HGB Conc 32.3 g/dL (30.0-36.0); Mean Corpuscular Hemoglobin 28.8 pg (28.0-34.0); Mean Platelet Volume 12.5 fL (7.4-10.4); Monocytes # 0.8 10^3/uL (0.2-0.9); Monocytes % 8.3 %; Neutrophils # 8.28 10^3/uL (1.8-7.7); Neutrophils % 82.4 %; Nucleated Red Blood Cells % 0 %; Platelet Count 203 10^3/cmm (130-400); Red Blood Count 5.11 10^6/uL (4.1-5.3); Red Cell Distribution Width 15.8 % (12.1-15.1)
--- NOTE | 2020-10-23 06:42 | PC.NURSE ---
Recieved orders per Dr. Hsu to discontinue Lasix 40 mg IVP and instead start administering Lasix 40 mg PO BID. Patient had an uneventful night and got up to use the bedside commode once throughout the shift. Needs some assist getting out of bed but overall does very well.
[2020-10-23 08:05] LABS: Anion Gap 17.5 (5-19); Blood Urea Nitrogen 67 mg/dL (8-23); Calcium 8.3 mg/dL (8.5-10.5); Carbon Dioxide 25 mmol/L (22-29); Chloride 91 mmol/L (98-107); Glucose 168 mg/dL (65-115); Osmolality Calculated 293 mOsm/kg (285-295); Potassium 3.5 mmol/L (3.5-5.1); Sodium 130 mmol/L (136-145)
[2020-10-23] MEDS: apixaban 5 mg Tablet PO ×2 (08:21→20:50)
[2020-10-23] MEDS: gabapentin 300 mg Capsule PO (08:21)
[2020-10-23] MEDS: amiodarone 200 mg Tablet 400 MG PO ×2 (08:21→17:13)
[2020-10-23] MEDS: atorvastatin 40 mg Tablet 20 MG PO (08:21)
[2020-10-23] MEDS: ciprofloxacin 500 mg Tablet 250 MG PO ×2 (08:21→20:50)
[2020-10-23] MEDS: spironolactone 25 mg Tablet 12.5 MG PO ×2 (08:21→17:13)
[2020-10-23] MEDS: FUROsemide 40 mg Tablet PO ×2 (08:22→15:59)
[2020-10-23] MEDS: NON-FORMULARY MEDICATION (Sildenafil (Pulm.Hypertension) 20 mg tablet) 20 EACH PO ×3 (08:22→20:51)
[2020-10-23] MEDS: doxycycline 100 mg Tablet PO ×2 (08:22→17:12)
[2020-10-23 08:34] LABS: Glucose Point of Care 200 mg/dL (70-110)
[2020-10-23] MEDS: TRAMadol 50 mg Tablet PO (10:21)
[2020-10-23 11:44] LABS: Glucose Point of Care 168 mg/dL (70-110)
--- NOTE | 2020-10-23 13:14 | PM.PN ---
Subjective Subjective: Interval history: Patient is slowly improving,had an episode of emesis post lunch.I.V Lasix has been stopped and has been switched to po lasix 40 BID starting today.Spironlactone has also been added to the regimen. Medications: Reviewed: Yes Medication Review Details: lasix gtt at 10 mg/hr Vitals/I&O/Wt Last Vital Signs Temp 96.4 F L 10/23/20 04:00 Pulse 75 10/23/20 12:15 Resp 16 10/23/20 12:15 BP 87/64 10/23/20 12:15 Pulse Ox 92 10/23/20 12:15 10/22/20 10/23/20 10/23/20 22:59 06:59 14:59 Intake Total 343.467 / 1076.132 300 / 1376.132 Output Total 1450 / 2000 Balance 343.467 / 526.132 -1150 / -623.868 Weight last 48 hrs Weight 96.644 kg Weight 91.824 kg Physical Exam Const: COMMON NORMALS: patient oriented x3 HENMT: COMMON NORMALS: normocephalic and atraumatic HEAD & SCALP: normocephalic and atraumatic Resp: COMMON NORMALS: clear to auscultation bilaterally AUSCULTATION: clear to auscultation bilaterally Cardio: COMMON NORMALS: regular rate, regular rhythm, S1 normal heart sound present, S2 normal heart sound present, No gallops present (Cardio), No rub (Cardio) and Peripheral pulses 2+ throughout RATE: regular rate RHYTHM: regular rhythm HEART SOUNDS: S1 normal heart sound present and S2 normal heart sound present PERIPHERAL PULSES: Peripheral pulses 2+ throughout OTHER: PSM in tricuspid area GI: COMMON NORMALS: Normal to inspection, nondistended, normoactive bowel sounds present, Soft to palpation, non-tender, No hepatosplenomegaly present and no masses AUSCULTATION: Yes normoactive bowel sounds PALPATION: Yes Soft to palpation and Yes No hepatosplenomegaly present RECTAL EXAM: Yes deferred Extremity: NARRATIVE EXTREMITY EXAM: Lymphedema wraps present. Lower extremity wound is improving. Neuro: COMMON NORMALS: patient oriented x3 Urinary Catheter Management^: Francois: Cath Placed During This Visit: yes Reason for Continuing Indwelling Catheter: Accurate Measurement of Urinary Output in Critically Ill Patients Urinary Catheter Date of Insertion: 10/14/20 Urinary Catheter Time of Insertion: 19:08 Data : 10/23/20 05:24 10/23/20 07:35 A&P Assessment and plan (1) Hypoxia: Likely to be a combination of fluid overload , severe pulmonary hypertension, lower suspicion for PE, LE duplex on 10/14 without DVT, discontinued heparin infusion. Initially on full dose Lovenox 1 mg/kg daily, for A fib, has been switched to eliquis 5 mg q12 h daily. Initially he was on lasix drip ,later switched to lasix 40 mg I.V BID and currently on po lasix 40 mg BID. Overall net even I/O since admission, Status: Acute (2) Pulmonary hypertension: Worsened by fluid overload, needed fluid resuscitation earlier course of admission due to pre renal JACOBY and dehydration. Currently on lasix drip, diuresing well sildenafil resumd at 20mg TID. Awaiting macitentan or selexipag approval Status: Acute (3) JACOBY (acute kidney injury): Cr improving to 2.6 today Appreciate nephrology recommendations FeNa 0.4, consistent with prerenal JACOBY, received IV fluids initially during course of admission with improvement in renal function, however now with worsening pulmonary hypertension of diuretics. Lasix resumed on October 18, 2020, currently tolerating. CT abdomen without hydronephrosis Francois to monitor accurate output Status: Acute (4) Hyperkalemia: resolved Status: Acute (5) Diabetic ulcer of lower leg: Wit B/L LE cellulitis Initially on abx zosyn and vancomycin between 10/14-10/19, transitioned to po cipro and doxycycline Plan for total 2 weeks of abx until 10/27 wounds significantly improved, ~70% improved over admission ABD dressing + lymphedema wraps to continue Status: Acute (6) Acute hyponatremia: resolved Status: Acute (7) Atrial fibrillation: With RVR, was on amiodarone infusion; Switched to p.o. amiodarone 400 twice daily on 10/21 Currently on levophed as a result of poor cardiac output , maintain MAP > 65 Status: Acute (8) Pulmonary arterial hypertension: Currently on sildenafil 20 mg po TID Pulmonary is planning to start the patient on second medication macitentan. Status: Acute (9) Acute on chronic diastolic (congestive) heart failure: Status: Acute (10) Cor pulmonale (chronic): Status: Acute Additional A&P Information DVT ppx: gin Has expressed wishes today to not be on mechanical ventilation, changed code status to DNR/DNI accordingly. Disposition: dependent on clinical course , TBD , may be a candidate for LTAC if agreeable Attestations Medical Necessity Statement*: Patient needs to be in hospital for the management of above defined Problems. Coding Level of Care Code Acute Batch Plant Supervisor for g Fwd Exam Detailed Diagnoses Hypoxia R09.02 Pulmonary hypertension I27.20 JACOBY (acute kidney injury) N17.9 Hyperkalemia E87.5 Diabetic ulcer of lower leg E11.622; L97.909 Acute hyponatremia E87.1 Atrial fibrillation I48.91 Pulmonary arterial hypertension I27.21 Acute on chronic diastolic (congestive) heart failure I50.33 Cor pulmonale (chronic) I27.81
--- NOTE | 2020-10-23 14:04 | PM.PN ---
Subjective Subjective: Interval history: Feels ok, with no new issues. Legs remain stable, wrapped, comfortable. Passing urine in response to oral lasix dosing, remains on high flow O2 at 45% Passing urine with no obstructive Sx Medications: Reviewed: Yes Medication Review Details: lasix gtt at 10 mg/hr Vitals/I&O/Wt Last Vital Signs Temp 96.4 F L 10/23/20 04:00 Pulse 69 10/23/20 13:27 Resp 18 10/23/20 13:27 BP 87/64 10/23/20 12:15 Pulse Ox 92 10/23/20 13:27 10/22/20 10/23/20 10/23/20 22:59 06:59 14:59 Intake Total 343.467 / 1076.132 300 / 1376.132 Output Total 1450 / 2000 Balance 343.467 / 526.132 -1150 / -623.868 Weight last 48 hrs Weight 96.644 kg Weight 91.824 kg Physical Exam Narrative: EXAM NARRATIVE: Constitutional: Awake, comfortable HEENT: Wet mucosa, no jvp, non icteric Lungs: Bilaterally clear without discernible wheeze, rales in all lung zones CVS: S1 S2, no murmurs Abdo: Soft, BS ok Ext 4: 2-3+ edema, erythema, peripheral perfusion with no cyanosis Neurological: Grossly non-focal Urinary Catheter Management^: Francois: Cath Placed During This Visit: yes Reason for Continuing Indwelling Catheter: Accurate Measurement of Urinary Output in Critically Ill Patients Urinary Catheter Date of Insertion: 10/14/20 Urinary Catheter Time of Insertion: 19:08 Data : 10/23/20 05:24 10/23/20 07:35 A&P Additional A&P Information 1. Acute renal failure Renal function remains roughly stable with minor flux of creatinine from 1.9 to 2.1 Strict ins and outs Avoid usual nephrotoxic agents Dose medications for GFR less than 15, i.e. drop gabapentin dosing to 300 once daily. 2. Chemistry Other chemistry looks to be mildly aberrant and noncritical including hyponatremia, of note corrected calcium was within normal range. 3. 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 Currently on combination Cipr and Doxycycline Likely to be discharged in next 24hrs Thank you for consultation, as always it is a pleasure for our team to follow these cases with you. John Chambers MD Nephrology [phone] Patient seen and examined via telemedicine, with the assistance of the bedside RN > 25 min spent in evaluation and mgmt of patient Attestations Medical Necessity Statement*: eval for JACOBY Coding Level of Care Code Acute Scissors Sharpener for Sourav Estrada
[2020-10-23 21:03] LABS: Glucose Point of Care 157 mg/dL (70-110)
[2020-10-24] VITALS (47 sets, daily range): BP systolic 74–104; BP diastolic 44–82; PULSE 70–98; RESP 16–20; TEMP 35.8–37.1; O2SAT 55–96
[2020-10-24 03:42] LABS: Basophils % 0.2 %; Eosinophils # 0.1 10^3/uL (0.0-0.8); Eosinophils % 0.5 %; Hematocrit 43.2 % (42.0-52.0); Hemoglobin 14.2 g/dL (11.7-16.6); Lymphocytes # 0.8 10^3/uL (0.8-4.8); Lymphocytes % 6.7 %; Mean Corpuscular HGB Conc 32.9 g/dL (30.0-36.0); Mean Corpuscular Hemoglobin 28.5 pg (28.0-34.0); Mean Corpuscular Volume 86.7 fL (80-94); Mean Platelet Volume 12.7 fL (7.4-10.4); Monocytes # 0.9 10^3/uL (0.2-0.9); Monocytes % 8.4 %; Neutrophils % 83.6 %; Nucleated Red Blood Cells % 0 %; Platelet Count 198 10^3/cmm (130-400); Red Blood Count 4.98 10^6/uL (4.1-5.3); Red Cell Distribution Width 15.4 % (12.1-15.1); White Blood Count 11.1 10^3/uL (4.0-10.0)
[2020-10-24 06:34] LABS: Anion Gap 17.9 (5-19); Blood Urea Nitrogen 68 mg/dL (8-23); Carbon Dioxide 25 mmol/L (22-29); Chloride 88 mmol/L (98-107); Glucose 143 mg/dL (65-115); Osmolality Calculated 288 mOsm/kg (285-295); Sodium 128 mmol/L (136-145)
[2020-10-24 06:44] LABS: Potassium 2.9 mmol/L (3.5-5.1)
[2020-10-24 07:25] LABS: Glucose Point of Care 130 mg/dL (70-110)
[2020-10-24] MEDS: ipratropium-albuterol 3 mL Neb INHALATION (07:49)
--- NOTE | 2020-10-24 09:20 | PC.CHAP ---
Pastoral Care Encounter/Spiritual Assessment Type of Contact [] Declined geographic analyst visit [] Patient/Family/Request visit [] Outpatient visit [] Follow-up visit [] Physician referral [] Code/Alert [] Routine visit [] Staff referral [] Actively dying [] Patient sleeping [] Family support [] [] Out of room [] Palliative care [] [] Receiving care in room [] Pre-surgical visit [] Trauma [] Long length of stay [] ICU visit [] Other: Relational/Emotional Strength [] Patient feels connected with others/family/visitors/staff [] Distress [] Loneliness/isolation [] Abandonment Spirituality of Patient [] Person of Gogo [] Attends Evangelical of their Gogo [] Believes in Prayer [] Reads Bible or Islam materials [] There are Spiritual issues to be addressed Cylinder Steamer Interventions [] Prayer [] Active listening [] Non-anxious presence [] Spiritual/emotional support [] Crisis/trauma care [] Spiritual counseling [] Bereavement support [] Provided bereavement packet [] Provided Bible/devotional materials [] Provided toy/stuffed animal, coloring book to patient or family member [] Provided Communion [] Anointing/Purcell [] Salvation [] Completed spiritual assessment [] Other: Impact on Illness or Injury [] Angry [] Fearful [] Anxious [] Often cries [] Exhaustion [] Unable to work [] Unable to attend orthodoxy [] Unable to walk/stand [] Unable to read [] Unable to drive [] Unable to eat/drink [] Unable to sleep [] Unable to be with family [] Patient intubated [] Other: Summary Time spent with patient Pastoral Care Encounter/Spiritual Assessment Type of Contact [] Declined geographic analyst visit [] Patient/Family/Request visit [] Outpatient visit [] Follow-up visit [] Physician referral [] Code/Alert [x Routine visit [] Staff referral [] Actively dying [] Patient sleeping [] Family support [] [] Out of room [] Palliative care [] [] Receiving care in room [] Pre-surgical visit [] Trauma [] Long length of stay [x] ICU visit [] Other: Relational/Emotional Strength [] Patient feels connected with others/family/visitors/staff [] Distress [] Loneliness/isolation [] Abandonment Spirituality of Patient [] Person of Gogo [] Attends Evangelical of their Gogo [] Believes in Prayer [] Reads Bible or Islam materials [] There are Spiritual issues to be addressed Cylinder Steamer Interventions [x] Prayer [x] Active listening [x] Non-anxious presence [x] Spiritual/emotional support [] Crisis/trauma care [] Spiritual counseling [] Bereavement support [] Provided bereavement packet [] Provided Bible/devotional materials [] Provided toy/stuffed animal, coloring book to patient or family member [] Provided Communion [] Anointing/Purcell [] Salvation [x] Completed spiritual assessment [] Other: Impact on Illness or Injury [] Angry [] Fearful [] Anxious [] Often cries [] Exhaustion [] Unable to work [] Unable to attend orthodoxy [] Unable to walk/stand [] Unable to read [] Unable to drive [] Unable to eat/drink [] Unable to sleep [] Unable to be with family [] Patient intubated [] Other: Summary patient able to eat breakfast... Time spent with patient 5 min
[2020-10-24] MEDS: ciprofloxacin 500 mg Tablet 250 MG PO (09:31)
[2020-10-24] MEDS: doxycycline 100 mg Tablet PO ×2 (09:32→17:15)
[2020-10-24] MEDS: apixaban 5 mg Tablet PO (09:32)
[2020-10-24] MEDS: spironolactone 25 mg Tablet 12.5 MG PO ×2 (09:36→17:15)
[2020-10-24] MEDS: gabapentin 300 mg Capsule PO (09:36)
[2020-10-24] MEDS: amiodarone 200 mg Tablet 400 MG PO ×2 (09:36→17:15)
[2020-10-24] MEDS: FUROsemide 40 mg Tablet 60 MG PO ×2 (09:37→15:33)
[2020-10-24] MEDS: atorvastatin 40 mg Tablet 20 MG PO (09:38)
--- NOTE | 2020-10-24 09:38 | PM.PN ---
Subjective Subjective: Interval history: The patient was seen and examined. He is comfortable doing well overall. Currently he is on 6 mcg/min norepinephrine increased from 2 yesterday. Blood work this morning revealed hypokalemia and mild hyponatremia. Medications: Reviewed: Yes Vitals/I&O/Wt Last Vital Signs Temp 98.4 F 10/24/20 03:43 Pulse 90 10/24/20 07:55 Resp 18 10/24/20 07:50 BP 97/69 10/24/20 05:15 Pulse Ox 95 10/24/20 07:50 10/23/20 10/24/20 10/24/20 22:59 06:59 14:59 Intake Total 180.533 / 180.533 513.08 / 693.613 Output Total 550 / 550 950 / 1500 Balance -369.467 / -369.467 -436.92 / -806.387 Weight last 48 hrs Weight 214 lb Weight 213 lb 1 oz Physical Exam Narrative: EXAM NARRATIVE: General: Patient is awake alert and oriented, in no distress Neck: Jugular venous distention Respiratory: Auscultation: Clear to auscultation bilaterally, no crackles wheezing or rhonchi Cardiovascular: Tachycardia, irregularly irregular rhythm, variable first sound, pansystolic murmur in the tricuspid area, bilateral lower extremity swelling and erythema, significantly improved Abdomen: Soft, nontender, nondistended, positive bowel sound Skin: Significant erythema in bilateral lower extremity, with visible ulcers Neuro: The patient is awake alert and oriented, no gross motor deficit Urinary Catheter Management^: Francois: Cath Placed During This Visit: yes Reason for Continuing Indwelling Catheter: Accurate Measurement of Urinary Output in Critically Ill Patients Urinary Catheter Date of Insertion: 10/14/20 Urinary Catheter Time of Insertion: 19:08 Data : 10/24/20 03:05 10/24/20 05:56 Attestation for Other Data: I personally reviewed and interpreted the following: Other data: I have reviewed the patient's laboratory, microbiologic and radiologic data A&P Assessment and plan (1) Acute and chronic respiratory failure with hypoxia: The patient is improving with resolving right ventricular failure. The patient is slowly improving. We will continue with oral Lasix 60 mg twice a day and spironolactone 12.5 mg twice a day. Status: Acute (2) Pulmonary arterial hypertension: The patient is receiving sildenafil 3 times a day. His macitentan was approved. We are in the process of obtaining the medication. I am going to start the patient on midodrine 10 mg 3 times daily with the hope to get rid of the norepinephrine drip. Status: Acute (3) Cellulitis: The patient is on oral antibiotic. There is significant bilateral lower extremity erythema and ulceration. We will start silver sulfadiazine ointment and wound care twice a day. Status: Acute (4) Acute kidney injury: Kidney function is improving. We will continue with the diuresis. If the patient has hyponatremia and hypokalemia on the repeat blood work, the patient will receive oral sodium chloride and potassium supplement. Status: Acute (5) Atrial fibrillation: The patient is currently in sinus rhythm. He is on amiodarone for 400 mg twice a day. This should be converted to 200 mg twice a day after a week of therapy which will be next Wednesday. I am starting him on Eliquis today. Status: Acute Attestations Medical Necessity Statement*: Will defer to the primary team Coding Level of Care Code Acute Erp Consultant for Sourav Estrada Diagnoses Acute and chronic respiratory failure with hypoxia J96.21 Pulmonary arterial hypertension I27.21 Cellulitis L03.90 Acute kidney injury N17.9 Atrial fibrillation I48.91
[2020-10-24] MEDS: NON-FORMULARY MEDICATION (Sildenafil (Pulm.Hypertension) 20 mg tablet) 20 EACH PO ×2 (09:39→15:30)
[2020-10-24] MEDS: silver sulfadiazine cream 1% 50 gm 1 APPLIC TOPICAL (10:27)
[2020-10-24 10:50] LABS: Glucose Point of Care 153 mg/dL (70-110)
--- NOTE | 2020-10-24 12:12 | PM.TDS ---
Transfer Summary Providers Date of Admission: 10/14/20 13:41 Date of Discharge: 10/24/20 Attending Provider at Admission: Awa Mcghee MD Attending Provider at Transfer: Tom Alva MD Primary Care Provider: Kimberly Ann DO Anticipated Date of Transfer: Anticipated date of transfer: 10/24/20 Receiving Facility & Provider: Receiving Provider: [] Receiving facility: [] Diagnoses at Discharge Discharge Diagnosis (1) Acute and chronic respiratory failure with hypoxia: Status: Acute (2) Pulmonary arterial hypertension: Status: Acute (3) Cellulitis: Status: Acute (4) Acute kidney injury: Status: Acute (5) Atrial fibrillation: Status: Acute Reason for Visit Reason for Visit: AB PAIN Hospital Course Hospital Course 79 year old male with PMH as outlined below who follows with wound care for B/L LE ulceration, recently started on po keflex and cipro as outpatient on 10/13/20, sent in from the [facility] after being noted to have abnormal labs incl Cr >4, hyperkalemia, hyponatremia.He was admitted for the management of prerenal JACOBY, he was started on IV hydration, but unfortunately hospital course was complicated by development of Acute on chronic respiratory failure with hypoxia: Multifactorial: acute decompensated r/v failure secondary to volume overload, severe pulmonary hypertension. patient was started on aggressive IV diuresis, he was kept on Lasix drip, with robust urine output, he was transitioned to intermittent IV Lasix, and finally he is being transferred on p.o. Lasix 60 twice daily daily, along with spironolactone 12.5 mg p.o. daily, he was placed on heated high flow oxygen to nasal cannula, initially was requiring close to 100% FiO2, at the time of transfer, he is on 45% FiO2, and currently saturating well, at home he has required close to 2 L of oxygen. JACOBY has continued to improve, with aggressive diuresis, at the time of discharge his serum creatinine was 2, which is likely his new baseline serum creatinine.CT abdomen did not show any hydronephrosis.for his B/L LE cellulitis Initially on abx zosyn and vancomycin between 10/14-10/19, transitioned to po cipro and doxycycline Plan for total 2 weeks of abx. Lower extremity cellulitis improved a lot, he was kept on regular wound care dressing ( ABD dressing ) he was also kept on lymphedema wrap. For his history of severe pulmonary hypertension he has been on sildenafil 20 mg 3 times daily, current plan is to start macitentan which according to the pulmonary medicine has been approved and will be started once he is transferred to [facility]. Hospital course was also complicated by development of, A. fib with RVR, he was kept on amiodarone drip initially, and was later switched to p.o. amiodarone 400 mg p.o. twice daily, for a week, followed by 200 mg p.o. twice daily. At the time of discharge his rate was well controlled, he was also started on anticoagulation, initially he was kept on therapeutic Lovenox, and is now being switched to Eliquis 5 mg p.o. every 12 hours daily. Patient also needed vasopressor support during the hospital stay, likely secondary to cardiogenic shock, his pressor requirement has been gradually decreasing, midodrine 10 mg p.o. 3 times daily was also added, to facilitate the weaning off from Levophed. So far the patient has responded very well to the medical management and [facility] for [facility].He will continue to follow Dr. Hsu as outpatient. Physical Exam Const: COMMON NORMALS: patient oriented x3 HENMT: COMMON NORMALS: normocephalic and atraumatic HEAD & SCALP: normocephalic and atraumatic Resp: COMMON NORMALS: clear to auscultation bilaterally AUSCULTATION: clear to auscultation bilaterally Cardio: COMMON NORMALS: regular rate, regular rhythm, S1 normal heart sound present, S2 normal heart sound present, No gallops present (Cardio), No rub (Cardio) and Peripheral pulses 2+ throughout RATE: regular rate RHYTHM: regular rhythm HEART SOUNDS: S1 normal heart sound present and S2 normal heart sound present PERIPHERAL PULSES: Peripheral pulses 2+ throughout OTHER: PSM in tricuspid area GI: COMMON NORMALS: Normal to inspection, nondistended, normoactive bowel sounds present, Soft to palpation, non-tender, No hepatosplenomegaly present and no masses AUSCULTATION: Yes normoactive bowel sounds PALPATION: Yes Soft to palpation and Yes No hepatosplenomegaly present RECTAL EXAM: Yes deferred Extremity: NARRATIVE EXTREMITY EXAM: Lower extremity wound is improving. Neuro: COMMON NORMALS: patient oriented x3 Urinary Catheter Management^: Francois: Cath Placed During This Visit: yes Reason for Continuing Indwelling Catheter: Accurate Measurement of Urinary Output in Critically Ill Patients Urinary Catheter Date of Insertion: 10/14/20 Urinary Catheter Time of Insertion: 19:08 TS Data Data Completed and Pending: Completed Studies During Hospitalization Category Date Time Status CT abdomen pelvis wo con [id number] Stat Cat Scan 10/14/20 14:11 Completed CXRP [XR chest 1V portable [id number]] R outine Exams 10/22/20 09:06 Completed XR chest 1V jefry ble [id number] Stat Exams 10/18/20 11:20 Completed XR chest 1V jefry ble [id number] Stat Exams 10/18/20 15:33 [place] [id number] Stat Ultrasound 10/14/20 12:04 Completed CV echo complete* [id number] Routine Ultrasound 10/21/20 05:00 [place] [id number] Stat Ultrasound 10/14/20 12:04 Completed Pending at discharge Category Date Time Status Basic Metabolic P mick AM LABS Lab 10/25/20 04:00 Ordered Basic Metabolic P mick Routine Lab 10/24/20 11:01 Ordered Complete Blood Co unt w/Auto AM LABS Lab 10/25/20 04:00 Ordered Labs from last 24 hours 10/24/20 10/24/20 10/24/20 10:46 10:41 07:21 WBC RBC Hgb Hct MCV MCH MCHC RDW Plt Count MPV Neut % (Auto) Lymph % (Auto) Walton % (Auto) Eos % (Auto) Baso % (Auto) Neut # (Auto) Lymph # (Auto) Walton # (Auto) Eos # (Auto) Baso # (Auto) Nucleated RBC % (a uto) Nucleated RBCs # Sodium Cancelled Potassium Cancelled Chloride Cancelled Carbon Dioxide Cancelled Anion Gap Cancelled BUN Cancelled Creatinine Cancelled GFR Calculation Cancelled Glucose Cancelled POC Glucose 153 H 130 H Calculated Osmolal ity Cancelled Calcium Cancelled 10/24/20 10/24/20 10/24/20 05:56 03:05 03:05 WBC 11.1 H RBC 4.98 Hgb 14.2 Hct 43.2 MCV 86.7 MCH 28.5 MCHC 32.9 RDW 15.4 H Plt Count 198 MPV 12.7 H Neut % (Auto) 83.6 Lymph % (Auto) 6.7 Walton % (Auto) 8.4 Eos % (Auto) 0.5 Baso % (Auto) 0.2 Neut # (Auto) 9.30 H Lymph # (Auto) 0.8 Walton # (Auto) 0.9 Eos # (Auto) 0.1 Baso # (Auto) 0.0 Nucleated RBC % (a uto) 0 Nucleated RBCs # 0.0 Sodium 128 L Cancelled Potassium 2.9 L Cancelled Chloride 88 L Cancelled Carbon Dioxide 25 Cancelled Anion Gap 17.9 Cancelled BUN 68 H Cancelled Creatinine 2.0 H Cancelled GFR Calculation Not Reportable Cancelled Glucose 143 H Cancelled POC Glucose Calculated Osmolal ity 288 Cancelled Calcium 8.0 L Cancelled 10/23/20 21:00 WBC RBC Hgb Hct MCV MCH MCHC RDW Plt Count MPV Neut % (Auto) Lymph % (Auto) Walton % (Auto) Eos % (Auto) Baso % (Auto) Neut # (Auto) Lymph # (Auto) Walton # (Auto) Eos # (Auto) Baso # (Auto) Nucleated RBC % (a uto) Nucleated RBCs # Sodium Potassium Chloride Carbon Dioxide Anion Gap BUN Creatinine GFR Calculation Glucose POC Glucose 157 H Calculated Osmolal ity Calcium Vitals: Last Vital Signs Temp 96.9 F L 10/24/20 08:00 Pulse 70 10/24/20 11:30 Resp 16 10/24/20 11:30 BP 89/59 10/24/20 11:30 Pulse Ox 92 10/24/20 11:30 TS Medications Medications Home Medications metformin 1,000 mg tablet,extended release 24hr 1,000 mg PO BID 06/28/19 [History Confirmed 10/14/20] simvastatin 20 mg PO DAILY 08/18/19 [History Confirmed 10/14/20] buspirone 7.5 mg PO BID 10/14/20 [History Confirmed 10/14/20] gabapentin 300 mg PO TID 10/14/20 [History Confirmed 10/14/20] metoprolol tartrate 25 mg PO BID 10/14/20 [History Confirmed 10/14/20] potassium chloride 20 meq PO DAILY 10/14/20 [History Confirmed 10/14/20] tramadol 50 mg PO TID PRN 10/14/20 [History Confirmed 10/14/20] aspirin 325 mg PO DAILY 10/15/20 [History Confirmed 10/15/20] furosemide 40 mg PO BID 10/15/20 [History Confirmed 10/15/20] sildenafil (pulm.hypertension) 20 mg PO TID 30 Days #90 tab 10/19/20 [Rx] Active Medications Albuterol/Ipratropium (Ipratropium-Albuterol 3 Ml Neb) 3 ml INHALATION Q4H PRN PRN Reason: SHORTNESS OF BREATH Last Admin: 10/24/20 07:49 Dose: 3 ml Documented by: Amiodarone HCl (Amiodarone 200 Mg Tablet) 400 mg PO BID [facility] Last Admin: 10/24/20 09:36 Dose: 400 mg Documented by: Apixaban (Apixaban 5 Mg Tablet) 5 mg PO BID@0900,2100 [facility] Last Admin: 10/24/20 09:32 Dose: 5 mg Documented by: Atorvastatin Calcium (Atorvastatin 40 Mg Tablet) 20 mg PO DAILY [facility] Last Admin: 10/24/20 09:38 Dose: 20 mg Documented by: Ciprofloxacin HCl (Ciprofloxacin 500 Mg Tablet) 250 mg PO BID@0900,2100 [facility]; Protocol Last Admin: 10/24/20 09:31 Dose: 250 mg Documented by: Dextrose (Dextrose 50% Syringe 50 Ml) 25 ml IVP ONCE PRN; Protocol PRN Reason: hypoglycemia protocol Dextrose (Dextrose 50% Syringe 50 Ml) 50 ml IVP PRN PRN; Protocol PRN Reason: hypoglycemia protocol Doxycycline Monohydrate (Doxycycline 100 Mg Tablet) 100 mg PO BID [facility]; Protocol Last Admin: 10/24/20 09:32 Dose: 100 mg Documented by: Furosemide (Furosemide 40 Mg Tablet) 60 mg PO BID@08,16 [facility] Last Admin: 10/24/20 09:37 Dose: 60 mg Documented by: Gabapentin (Gabapentin 300 Mg Capsule) 300 mg PO DAILY [facility] Last Admin: 10/24/20 09:36 Dose: 300 mg Documented by: Glucagon (Glucagon 1 Mg/Ml Inj 1 Ml) 1 mg IM ONCE PRN; Protocol PRN Reason: Adult Acute Hypoglycemia Prot. Norepinephrine Bitartrate 4 mg (/ Dextrose) 254 mls @ 0 mls/hr IV .Q0M [facility]; Protocol Last Titration: 10/24/20 11:15 Dose: 8.5 mcg/min, 32.4 mls/hr Documented by: Lanolin (Lanolin Oint 7 Gm) 1 applic TOPICAL PRN PRN PRN Reason: DRYNESS Last Admin: 10/19/20 09:19 Dose: 1 applic Documented by: Midodrine (Midodrine 5 Mg Tablet) 10 mg PO TID [facility] Non-Formulary Medication (Sildenafil (Pulm.Hypertension)) 20 mg PO TID [facility] Last Admin: 10/24/20 09:39 Dose: 20 mg Documented by: Ondansetron HCl (Ondansetron 2 Mg/Ml Sdv 2 Ml) 4 mg IVP Q6H PRN PRN Reason: NAUSEA AND VOMITING Silver Sulfadiazine (Silver Sulfadiazine Cream 1% 50 Gm) 1 applic TOPICAL Q12H [facility] Last Admin: 10/24/20 10:27 Dose: 1 applic Documented by: Spironolactone (Spironolactone 25 Mg Tablet) 12.5 mg PO BID [facility] Last Admin: 10/24/20 09:36 Dose: 12.5 mg Documented by: Discharge Plan Discharge Patient Disposition: Home Condition: Stable Prescriptions: New sildenafil (pulm.hypertension) 20 mg tablet 20 mg PO TID 30 Days Qty: 90 RF: 0 ipratropium-albuterol 0.5 mg-3 mg(2.5 mg base)/3 mL Solution For Nebulization 3 ml inhalation Q4H PRN (Reason: Shortness Of Breath) 7 Days RF: 0 doxycycline monohydrate 100 mg Tablet 100 mg PO BID 14 Days Qty: 28 RF: 0 Eliquis 5 mg Tablet 5 mg PO BID@0900,2100 Qty: 60 RF: 3 silver sulfadiazine [Silvadene] 1 % Cream 1 applic topical Q12H 10 Days RF: 0 midodrine 5 mg Tablet 10 mg PO TID 15 Days Qty: 90 RF: 0 ciprofloxacin HCl 500 mg Tablet 250 mg PO BID@0900,2100 7 Days RF: 0 amiodarone [Pacerone] 200 mg Tablet 400 mg PO BID 3 Days Qty: 12 RF: 0 spironolactone 25 mg Tablet 12.5 mg PO BID 30 Days Qty: 30 RF: 0 amiodarone 200 mg tablet 200 mg PO BID Qty: 60 RF: 0 Continued metformin 1,000 mg tablet extended release 24hr 1,000 mg PO BID RF: 0 simvastatin 20 mg Tablet 20 mg PO DAILY RF: 0 tramadol 50 mg tablet 50 mg PO TID PRN (Reason: Pain) RF: 0 potassium chloride 20 mEq tablet,ER particles/crystals 20 meq PO DAILY RF: 0 gabapentin 300 mg capsule 300 mg PO TID RF: 0 buspirone 7.5 mg tablet 7.5 mg PO BID RF: 0 Changed aspirin 325 mg Tablet 81 mg PO DAILY Qty: 0 RF: 0 furosemide 40 mg Tablet 60 mg PO BID Qty: 0 RF: 0 Held metoprolol tartrate 25 mg tablet 25 mg PO BID RF: 0 Hold Instructions: Resume on 11/07/20. Discharge Orders: Discharge Order (Routine); Ordered 10/24/20 Ordered By: Tom Alva Referrals: Lucila Hsu MD [Physician] - 2 weeks Kimberly Ann DO [Primary Care Provider] - Discharge Diet: Cardiac Discharge Activity: Increase activity as tolerated Patient Instructions: Opioid Safety Transfer Attestations Time Spent in Transfer Care*: greater than 30 min Specific Discharge Activities: Specific discharge activities: educating patient, educating and/or supporting family/caregiver, discussing with pcp/other providers, discussing with case making machine operator/social workers/dc planners, documenting/other paperwork and evaluating patient/reviewing data Status at Transfer: Cognitive status at transfer: cognitively intact, Behavioral status at transfer: cooperative, Functional status at transfer: other assisted ambulation Overall status at transfer: patient is back to baseline Quality Metrics Clinical Quality Measures: During this hospital stay, did patient experience: None Coding Level of Care Code Acute Planning Manager for [facility] Fwd Exam Detailed Diagnoses Acute and chronic respiratory failure with hypoxia J96.21 Pulmonary arterial hypertension I27.21 Cellulitis L03.90 Acute kidney injury N17.9 Atrial fibrillation I48.91
[2020-10-24] MEDS: midodrine 5 mg TABLET 10 MG PO ×2 (12:56→15:29)
--- NOTE | 2020-10-24 13:07 | PC.NURSE ---
Third sample of blood just drawn for BMP. First two samples hemolyzed, Dr Hsu notifed.
[2020-10-24 13:28] LABS: Blood Urea Nitrogen 72 mg/dL (8-23); Carbon Dioxide 26 mmol/L (22-29); Chloride 89 mmol/L (98-107); Glucose 167 mg/dL (65-115); Osmolality Calculated 291 mOsm/kg (285-295); Sodium 128 mmol/L (136-145)
--- NOTE | 2020-10-24 13:44 | PM.PN ---
Subjective Subjective: Interval history: reports pain where ulcers are on legs Medications: Reviewed: Yes Medication Review Details: on NE at 5 mcg and midodrine 10 mg TID Vitals/I&O/Wt Last Vital Signs Temp 96.9 F L 10/24/20 08:00 Pulse 70 10/24/20 11:30 Resp 16 10/24/20 11:30 BP 89/59 10/24/20 11:30 Pulse Ox 92 10/24/20 11:30 10/23/20 10/24/20 10/24/20 22:59 06:59 14:59 Intake Total 180.533 / 180.533 513.08 / 693.613 254.032 / 254.032 Output Total 550 / 550 950 / 1500 Balance -369.467 / -369.467 -436.92 / -806.387 254.032 / 254.032 Weight last 48 hrs Weight 97.069 kg Weight 96.644 kg Physical Exam Const: GENERAL APPEARANCE: cooperative Extremity: GENERAL: Yes edema (2+) OTHER: + superficial ulcerations left leg with surrounding erythema Urinary Catheter Management^: Francois: Cath Placed During This Visit: yes Reason for Continuing Indwelling Catheter: Accurate Measurement of Urinary Output in Critically Ill Patients Urinary Catheter Date of Insertion: 10/14/20 Urinary Catheter Time of Insertion: 19:08 Data : 10/24/20 03:05 10/24/20 12:55 A&P Additional A&P Information Impression/Recommendation: 1. Acute kidney injury, stable 2. Volume overload, chronic hypotension 3. Hypervolemic hyponatremia stable 4. Hypokalemia, continue to replace KCL po 5. Severe pulmonary hypertension, + cirrhosis 6. Cellulitis, on antibiotics Attestations Medical Necessity Statement*: per primary service Coding Level of Care Code Acute Senior Oracle Applications Developer for Sourav Estrada
[2020-10-24] MEDS: potassium chloride oral liq 20 mEq/15 mL UDC 40 MEQ PO (15:28)
[2020-10-24] MEDS: sodium chloride 1 gm Tablet 3 GM PO (15:29)
--- NOTE | 2020-10-24 16:11 | PC.NURSE ---
Report called to [place], [place]. Report given to Skye Wang RN.
--- NOTE | 2020-10-24 16:19 | PC.NURSE ---
Steril dressing change to PICC. [place] Contour shield dressing applied. Pt tolerated well
--- NOTE | 2020-10-24 17:33 | PC.NURSE ---
Ambulance crew here. Pt discharged to their care. Personal belongings with pt, including home med Revatio
--- NOTE | 2020-10-24 18:24 | PC.NURSE ---
[facility] called, notified of patient's departure time.
--- NOTE | 2020-10-31 08:47 | PC.SOCIAL ---
Called to follow up on patient at [facility]. Spoke with Divine pt care nurse and per her patient has decided to move to comfort care. Per Divine he will remain at [facility] she suspects until time of expiration. Updated Odalys with the [facility] who was working peripherally on trying to obtain the pulmonary htn drug and also updated Dr Hsu. Will notify the [facility] as well and [facility] ([facility] was going to send the first month of Opsumit medication out and [facility] cover the remainder up to certain amount of funds).
== END 2020-10-24 17:34 | DRG 682 ==
LOC: ER 13:50 → MEDSURG 14:03 → CSU 10-18 03:27 → ICU 10-18 09:57
PROVIDERS: Internal Medicine; Internal Medicine Critical Care Medicine; Internal Medicine Nephrology; Admitting Provider Student in an Organized Health Care Education/Training Program; Emergency Provider Family Medicine; PCP Family Medicine; Visit Provider Internal Medicine
DX: N17.9 Acute kidney failure, unspecified (principal); I50.33 Acute on chronic diastolic (congestive) heart failure; R57.0 Cardiogenic shock; J96.21 Acute and chronic respiratory failure with hypoxia; E87.1 Hypo-osmolality and hyponatremia; L97.929 Non-pressure chronic ulcer of unspecified part of left lower leg with unspecified severity; L97.919 Non-pressure chronic ulcer of unspecified part of right lower leg with unspecified severity; L03.116 Cellulitis of left lower limb; L03.115 Cellulitis of right lower limb; E87.2 Acidosis; R04.2 Hemoptysis; E87.5 Hyperkalemia; I11.0 Hypertensive heart disease with heart failure; I27.81 Cor pulmonale (chronic); E11.622 Type 2 diabetes mellitus with other skin ulcer; R97.20 Elevated prostate specific antigen [PSA]; M10.9 Gout, unspecified; E78.5 Hyperlipidemia, unspecified; I27.20 Pulmonary hypertension, unspecified; I48.91 Unspecified atrial fibrillation; R07.81 Pleurodynia; I95.9 Hypotension, unspecified; Z79.84 Long term (current) use of oral hypoglycemic drugs; Z66 Do not resuscitate; Z91.14 Patient's other noncompliance with medication regimen
CPT/HCPCS: 11042; 11045; 36415; 36416; 36556; 36569; 36592; 36600; 51702; 71045; 74176; 80048; 80051; 80053; 80202; 81001; 82330; 82436; 82550; 82570; 82803; 82805; 82962; 83605; 83735; 83880; 84100; 84132; 84133; 84300; 84443; 84484; 85025; 85049; 85378; 85730; 85999; 87040; 93005; 93306; 93930; 93970; 94640; 94660; 96365; 96372; 97110; 97116; 97140; 97161; 97530; 99285; J0282; J1160; J1644; J1650; J1940; J2543; J3370; J3475; J3480; J3490; J7030; J7040; J7050; J7060; Q3014